=== PATIENT | male | born 1970 | race Caucasian/White ===

== ENCOUNTER 2023-05-26 09:15 | Emergency (ER) | payer SELFPAY ==
--- NOTE | ~2023-05-26 | XR_ITS ---
EXAMINATION: XR LUMBOSACRAL SPINE CLINICAL INFORMATION: Low back pain. COMPARISON: None available. TECHNIQUE: Three views of the lumbosacral spine. FINDINGS: There is normal lumbar lordosis and spinal alignment. The vertebral bodies are intact. Mild to moderate degenerative disc disease is seen at L1 to with disc space narrowing and marginal osteophyte formation. The soft tissues are unremarkable. XR/XR lumbar spine 2-3V IMPRESSION: L1-L2 mild to moderate degenerative disc disease. No acute abnormality.
[2023-05-26 09:24] VITALS: BP 150/100; PULSE 100; RESP 20; TEMP 36.8; O2SAT 98; BMI 33.9
--- NOTE | 2023-05-26 10:02 | PC.NURSE ---
pt in xray
--- NOTE | 2023-05-26 10:02 | ED.BACK ---
HPI - Back Pain/Injury General Chief Complaint: Back Pain/Injury Stated Complaint: lower back pain Time Seen by Provider: 05/26/23 09:38 Source: patient Mode of arrival: ambulatory Limitations: no limitations History of Present Illness HPI Narrative: This is a 52-year-old male who has no known medical history who presents to the ER with complaints of lower back pain x1 week with no known injury or trauma. No radiation of pain. No numbness or tingling legs. No numbness in the groin. No bowel or bladder incontinence. No fevers or chills. Patient has been taking ibuprofen at home with continued pain. Of note, patient has not seen a primary care doctor in greater than 20 years. Related Data Previous Rx's Medication Instructions Recorded cyclobenzaprine 10 mg tablet 10 mg PO TID PRN muscle spasm #14 05/26/23 tabs naproxen 500 mg tablet 500 mg PO BID PRN pain #30 tabs 05/26/23 Allergies Allergy/AdvReac Type Severity Reaction Status Date / Time No Known Allergies Allergy Verified 05/26/23 09:26 Review of Systems Review of Systems: Yes all other systems are reviewed and are negative Constitutional: Constitutional: Reports no additional constitutional complaints, Denies body ache(s), Denies chills, Denies fever(s), Denies headache(s) and Denies weakness Eyes: Eyes: Reports no additional eye complaints and Denies change in vision ENT: Reports system reviewed and no additional complaints, except as documented, Denies dizziness, Denies headache(s), Denies nasal congestion, Denies nasal discharge and Denies neck pain Cardiovascular: Cardiovascular: Reports no additional cardiovascular complaints, Denies chest pain, Denies leg edema and Denies dyspnea Respiratory: Respiratory: Reports no additional respiratory complaints, Denies cough and Denies dyspnea Gastrointestinal: Gastrointestinal: Reports no additional gastrointestinal complaints, Denies abdominal pain, Denies diarrhea, Denies nausea and Denies vomiting Genitourinary: Genitourinary: Denies urinary incontinence Musculoskeletal: Musculoskeletal: Reports no additional musculoskeletal complaints, Reports back pain, Denies arthralgias, Denies joint swelling, Denies neck pain, Denies numbness and Denies tingling Integumentary/Breasts: Skin/Breast: Reports system reviewed and no additional complaints, except as docu and Denies rash Neurologic: Reports system reviewed and no additional complaints, except as documented, Denies Abnormal speech present, Denies dizziness, Denies headache(s), Denies numbness, Denies tingling and Denies weakness PMFSH Past Medical History Attestation statement: The following information was validated with the patient. Source: old records reviewed and nursing notes reviewed Social History Social History Smoked in Last 30 Days: Yes Use of substances other than those prescribed or required for medical reasons: No Advance Directives: No Advance Directives Information Provided: Yes Physical Exam Vital Signs: Vital Signs: Last Vital Signs Temp 98.3 F 05/26/23 09:24 Pulse 100 05/26/23 09:24 Resp 20 05/26/23 09:24 BP 150/100 H 05/26/23 09:24 Pulse Ox 98 05/26/23 09:24 O2 Del Method Room Air 05/26/23 09:24 BMI result Body Mass Index 33.9 Const: General: cooperative, healthy appearing, comfortable and no acute distress Orientation/consciousness: patient oriented x3 Limitations: no limitations HEENT: Head: Yes normal to inspection Ears: hearing grossly normal bilaterally General nose exam: Normal external nose present Face and sinus: Yes normal facial exam Mouth: Normal oral and palatal mucosa present Throat: Yes posterior oropharynx normal Eyes: General: appearance normal, both eyes and all related structures Pupils: Equal, round and reactive pupils present Neck: Neck: Yes normal visual inspection Chest: Chest palpation & inspection: normal inspection of the chest Resp: Effort & Inspection: normal respiratory effort Auscultation: clear to auscultation bilaterally Cardio: Rate: regular rate Rhythm: regular rhythm Peripheral pulses: Peripheral pulses 2+ throughout GI: Inspection: Yes normal to inspection Palpation (GI): Soft to palpation and nontender Auscultation: normal bowel sounds : General: Yes no CVA tenderness Back/Spine/Pelvis: Other: There is tenderness on palpation to the lumbar mid spine with no step-offs deformities. pain is worse on flexion and extension of the lumbar spine Back: no CVA tenderness Thoracic/Lumbar Spine: thoracic and lumbar spine normal to inspection Skin: General skin exam: no rashes or lesions noted Neuro: General: patient oriented x3, moves all extremities, no focal motor deficits and normal sensation to monofilament Cranial nerves: Yes Equal, round and reactive pupils present Cognition (Neuro): normal cognition Speech: No Abnormal speech present Gait exam (Neuro): Normal gait present Motor exam (neuro): 5/5 motor strength present throughout Sensory Exam: Normal double simultaneous stimulation for sensation Deep tendon reflexes (DTR's): Right patellar reflex intensity grade: 2+ and Left patellar reflex intensity grade: 2+ Extrem: General: Yes normal to inspection Course Course Course Narrative: x-ray shows L1-L2 [id number] degenerative disc disease. No fracture. Patient will be discharged home with NSAID muscle relaxant with recommendation to establish a primary care doctor. Patient has a mild hypertension. He has no history of same. He is asymptomatic. He was notified of his blood pressure and need to establish a primary care doctor for blood pressure recheck. Reviewed worrisome signs and symptoms regards to his back pain and when to return to the emergency room. Comfortable plan for discharge home. Medications Administered Discontinued Medications Generic Name Dose Route Start Last Admin Trade Name Freq PRN Reason Stop Dose Admin Ketorolac Tromethamine 30 mg 05/26/23 09:46 05/26/23 10:13 Ketorolac Tromethamine 30 Mg/Ml Vial IM 05/26/23 09:47 30 mg ONCE ONE Administration Medical Decision Making Medical Decision Making [facility] Narrative: This is a 52-year-old male with no known medical history presents to the ER with atraumatic lower back pain for the last 1 week. Patient has midline lumbar tenderness with no step-offs deformities. Patient has no neurological deficits or red flag symptoms Due to midline tenderness will check x-rays. Patient will be provided with analgesia. Differential Diagnosis Differential Diagnoses: The differential diagnosis associated with the presentation includes Lumbar strain no neurological deficits or red flag symptoms to suggest cord compression, cauda equina, epidural abscess, malignancy no flank pain or urinary symptoms to suggest renal colic or pyelonephritis gradual onset so less likely AAA Independent Interpretation I performed an independent interpretation of an: Plain X-Ray Interpretation: I independently reviewed the x-ray and agree with radiology report Radiology Impression Discussion of test interpretation with radiology: I have reviewed the radiologist's reading. Radiologist Impression: Launch?Image [address] [id number] XRay Report Signed Patient: Sandip Forte MR#: [id number] : 1970 Acct:[id number] Age/Sex: 52 / M ADM Date: 05/26/23 Loc: HO.ED Attending Dr: Ordering Physician: Mavis Ponce NP Date of Service: 05/26/23 Procedure(s): XR lumbar spine 2-3V Accession Number(s): [id number] cc: Mavis Ponce NP~ EXAMINATION: XR LUMBOSACRAL SPINE CLINICAL INFORMATION: Low back pain. COMPARISON: None available. TECHNIQUE: Three views of the lumbosacral spine. FINDINGS: There is normal lumbar lordosis and spinal alignment. The vertebral bodies are intact. Mild to moderate degenerative disc disease is seen at L1 to with disc space narrowing and marginal osteophyte formation. The soft tissues are unremarkable. XR/XR lumbar spine 2-3V IMPRESSION: L1-L2 mild to moderate degenerative disc disease. No acute abnormality. ? Discharge Plan Discharge Clinical Impression: Lumbar strain Patient Disposition: Home, Self-Care Instructions: Low Back Strain (ED), Lower Back Exercises (ED) Additional Instructions: Your blood pressure was elevated today. You need to follow-up with a primary care doctor to have her blood pressure recheck to determine if you need blood pressure medications. Please limit sodium in the diet. Please limit caffeine. Your x-ray shows degenerative changes which come with age Apply heat or ice Gentle stretching At take the medication as prescribed Establish a primary care doctor Return for shortness of breath, chest pain, weakness /numbness / tingling of the upper/lower extremities, bowel or bladder incontinence, fevers/chills or numbness in the groin Prescriptions: New naproxen 500 mg tablet 500 mg PO BID PRN (Reason: pain) Qty: 30 0RF cyclobenzaprine 10 mg tablet 10 mg PO TID PRN (Reason: muscle spasm) Qty: 14 0RF Referrals: Physician,None [Primary Care Provider] - 1 week Stand Alone Forms: Work/School Release
[2023-05-26] MEDS: Ketorolac Tromethamine 30 MG/ML VIAL IM (10:13)
--- NOTE | 2023-05-26 11:31 | PC.NURSE ---
upon gving d/c papers pt c/o right arm numbness. on assessment by rn at this time pt states can feel fingers.
== END 2023-05-26 11:45 | disposition home or self-care (01) ==
PROVIDERS: Emergency Provider Emergency Medicine
DX: S39.012A Strain of muscle, fascia and tendon of lower back, initial encounter (principal); X58.XXXA Exposure to other specified factors, initial encounter; Y93.9 Activity, unspecified; Y92.9 Unspecified place or not applicable; Y99.9 Unspecified external cause status
CPT/HCPCS: 72100; 96372; 99284; J1885

== ENCOUNTER 2023-10-03 09:26 | Inpatient (IN) | payer MEDICAID, SELFPAY ==
--- NOTE | ~2023-10-03 | XR_ITS ---
EXAMINATION: XR CHEST CLINICAL INFORMATION: Dyspnea. COMPARISON: None available. TECHNIQUE: Frontal view of the chest was obtained. FINDINGS: The lungs are well-expanded with increased pulmonary vascularity but no consolidation seen. The heart size is enlarged. There is no pleural effusion. No gross bony abnormality. XR/XR chest 1V IMPRESSION: Cardiomegaly with mild CHF.
--- NOTE | ~2023-10-03 | US_ITS ---
EXAMINATION: US RETROPERITONEAL LIMITED (RENAL ONLY) CLINICAL INFORMATION: Renal mass reported on CT scan of chest. COMPARISON: CT scan of chest on 10/03/2023 TECHNIQUE: Real-time imaging of the kidneys. FINDINGS: RIGHT KIDNEY: 11.9 x 5.8 x 7.3 cm (SAG x AP x TRV). The kidney is normal in size, contour, and echogenicity. Renal cortical thickness is normal. No renal calculi or hydronephrosis. Hypoechoic cyst with a single thin septation is seen in mid right kidney measuring 1.9 x 1.7 x 2.5 cm in size. A smaller simple cyst is seen in inferior right renal pole measuring 1.3 x 1.1 x 1.1 cm in size. Echogenic focus without acoustic shadowing is seen in inferior right renal cortex measuring 0.7 x 0.4 x 0.7 cm in size. LEFT KIDNEY: 13.6 x 5.4 x 5.9 cm (SAG x AP x TRV). The kidney is normal in size, contour, and echogenicity. Renal cortical thickness is normal. No calculi or focal parenchymal lesions. No hydronephrosis. US/US renal BI IMPRESSION: 1. Right mid renal Bosniak category 2 lesion and inferior right renal pole Bosniak category 1 lesions are seen, for which no follow up imaging is recommended. 2. The right upper renal pole lesion reported on CT scan of chest could not be demonstrated on ultrasound examination. Further evaluation with pre and postcontrast MRI of the abdomen is therefore recommended. 3. Nonspecific Echogenic focus without acoustic shadowing is seen in the inferior right renal cortex.
--- NOTE | ~2023-10-03 | CT_ITS ---
EXAMINATION: CT CHEST WITHOUT CONTRAST CLINICAL INFORMATION: Chest pain, shortness of breath, history of spontaneous pneumothorax. COMPARISON: Chest x-ray of 10/03/2023 TECHNIQUE: Multidetector volumetric CT imaging of the chest was done. Axial MIP volume rendering provided. Sagittal and coronal reformatted images were obtained. This CT examination was performed using dose optimization techniques as appropriate, variously including the following: *Automated exposure control *Adjustment of mA and/or kV according to patient size (this includes techniques or standardized protocols for targeted exams where dose is matched to indication/reason for exam; i.e. extremities or head) *Use of iterative reconstruction technique DLP: 504 mGy-cm FINDINGS: Examination is somewhat motion degraded. LUNGS: Moderate centrilobular emphysema is evident, greater in the mid and upper lung zones and at the bases. There are scattered pulmonary nodules. For example, a 4 mm nodule is evident in the right upper lobe anteriorly, series 9 image 175; a 4 mm nodule is evident in the lateral right upper lobe, series 9 image 167; several tiny nodules are evident in the right middle lobe, series 8 image 68; in the largest nodule is in the right lower lobe measuring 6 mm, series 9 and series 327. Dependent atelectasis is noted at both lung bases. Scattered additional similar sized nodules are evident in both lungs, right greater than left, best seen on the maximum intensity projection images. The trachea and major bronchi are patent. MEDIASTINUM: Mild adenopathy is present. For example, a right upper paratracheal node measures 10 mm in short axis; a left tracheobronchial node measures 15 x 10 mm; a subcarinal node measures 21 x 13 mm and extends into the azygos esophageal recess. CORONARY ARTERY CALCIFICATION: None visualized on this study. PLEURA: Small right greater than left pleural effusions are present. AXILLA: No lymphadenopathy. UPPER ABDOMEN: There is an incompletely imaged 19 mm mass extending exophytically from the upper pole of the right kidney. A tiny low-density lesion extends medially from the upper pole the left kidney. There are no adrenal masses. OSSEOUS STRUCTURES: Unremarkable. CT/CT chest wo IV con IMPRESSION: 1. Mild to moderate emphysema. 2. Scattered small bilateral pulmonary nodules, the largest in the right lower lobe measuring 6 mm. Per Fleischner Society guidelines, in the absence of underlying malignancy, in a patient at high risk, for nodules of this size, follow-up CT at 3-6 months is recommended, then at 18-24 months. 3. Small bilateral pleural effusions and bibasilar atelectasis. 4. No pneumothorax. 5. Mild nonspecific mediastinal adenopathy. Attention on follow-up studies is recommended. 6. Limited upper abdominal images show an exophytic right renal mass, measuring at least 19 mm, incompletely imaged and characterized. Suggest dedicated renal CT or MRI as clinically warranted. Fleischner guidelines were followed.
[2023-10-03 09:44] VITALS: BP 173/119; PULSE 113; RESP 20; TEMP 36.1; O2SAT 89; BMI 40.9
--- NOTE | 2023-10-03 09:51 | ECG_ITS ---
Test Reason : sob Blood Pressure : / mmHG Vent. Rate : 111 BPM Atrial Rate : 111 BPM P-R Int : 168 ms QRS Dur : 092 ms QT Int : 346 ms P-R-T Axes : 061 008 095 degrees QTc Int : 470 ms Sinus tachycardia Possible Left atrial enlargement Nonspecific T wave abnormality Abnormal ECG No previous ECGs available Referred By: Generic ED Physician Electronically Signed By:Julio Hoffman
[2023-10-03 10:29] LABS: MANUAL DIFF FLAG NO
[2023-10-03 10:33] LABS: Basophils Absolute Auto 0.1 X10*3/uL (0.0-0.2); Basophils Percent Auto 0.3 % (0-2); Eosinophils Percent Auto 0.2 % (0-4); Hematocrit 44.3 % (42.0-52.0); Hemoglobin 14.1 g/dl (14.0-18.0); Imm Gran Abs Auto 0.04 X10*3/uL (0.00-0.03); Imm Gran Pct Auto 0.3 % (0.0-0.4); Lymphocytes Absolute Auto 0.9 X10*3/uL (1.2-4.9); Lymphocytes Percent Auto 6.3 % (20-40); Mean Corpuscular HGB Conc 31.8 g/dl (31.0-36.0); Mean Corpuscular Hemoglobin 29.3 pg (27.0-33.0); Mean Corpuscular Volume 92.1 fL (80.0-98.0); Mean Platelet Volume 9.4 fL (9.4-12.4); Monocytes Absolute Auto 0.8 X10*3/uL (0.1-1.2); Monocytes Percent Auto 5.2 % (2-11); Neutrophils Absolute Auto 12.7 x10*3/uL (2.0-8.3); Neutrophils Percent Auto 87.7 % (45-73); Platelet Count 327 X10*3/uL (160-400); Red Blood Count 4.81 X10*6/uL (4.60-5.80); Red Cell Distribution Width 13.4 % (11.0-16.0); White Blood Count 14.5 X10*3/uL (4.8-10.8)
--- NOTE | 2023-10-03 10:35 | PC.NURSE ---
state he started with sob a few hours ago. b/l ls dim with exp wheeze on r, sr on monitor, no cp,
[2023-10-03 10:45] LABS: Alanine Aminotransferase 19 U/L (0-40); Albumin Level 4.3 g/dL (3.5-5.0); Alkaline Phosphatase 81 U/L (39-117); Anion Gap 13 (12-20); Aspartate Amino Transferase 19 U/L (5-37); Bilirubin Direct 0.2 mg/dL (0.0-0.5); Bilirubin Total 0.6 mg/dL (0.0-1.0); Blood Urea Nitrogen 10 mg/dL (9-16); Carbon Dioxide 26 mmol/L (22-29); Chloride 102 mmol/L (96-108); Creatinine Clr Calc Pharmacy 148.4; Estimated Glomerular Filt Rate > 60; Glucose Random 129 mg/dL (60-115); Lipase 12 U/L (8-78); Potassium 4.2 mmol/L (3.3-5.1); Sodium 137 mmol/L (135-145)
[2023-10-03 10:52] LABS: Troponin-I High Sensitivity 60.8 ng/L (<3.5-35.0)
[2023-10-03 11:06] LABS: Influenza A PCR NEGATIVE (Negative); Influenza B PCR NEGATIVE (Negative); Resp Syncy Virus RNA Qual PCR NEGATIVE (Negative); SARS COV2 PCR INHOUSE NEGATIVE (Negative)
[2023-10-03 11:10] VITALS: BP 164/112; PULSE 109; RESP 22; O2SAT 94
--- NOTE | 2023-10-03 11:15 | ED.SOB ---
HPI - SOB/Dyspnea General Chief Complaint: Dyspnea Stated Complaint: Shortness of breath Time Seen by Provider: 10/03/23 11:14 Source: patient and RN notes reviewed Mode of arrival: ambulatory Limitations: no limitations History of Present Illness HPI Narrative: This is a 52-year-old male, with a history of hypertension, and spontaneous pneumothorax 10 years ago, presenting to the emergency department with complaints of acute onset shortness of breath which occurred at 3:00 a.m. this morning. Patient reports that last night he used half a gram of cocaine at midnight. He went to bed and woke up feeling very short of breath. Reports over the course of this last month he has had increased shortness of breath, worsening with climbing stairs and lying down. No swelling in his lower extremities. Denies history of congestive heart failure. No fevers, chills, palpitations, chest pain, abdominal pain, nausea, vomiting or diarrhea. He states that he has recently exposed to COVID last week. He is not on on supplemental oxygen. He is a smoker, smokes approximately 5-10 cigarettes per day. No recent travel, surgeries, hospitalizations. No history of blood clots or cancer history. No other complaints or concerns at this time. MD elicited complaint: shortness of breath Onset (ago): hour(s) Timing: constant Severity: moderate Exacerbating factors: lying flat and exertion Relieving factors: oxygen and upright position Associated symptoms: denies other symptoms Treatment prior to arrival: none Related Data Home oxygen amount: none Previous Rx's Medication Instructions Recorded acetaminophen 325 mg tablet 650 mg (2 x 325 mg) PO Q6H PRN 10/06/23 Pain, Mild (Pain Scale 1-3) #10 tabs aspirin 81 mg tablet,delayed 81 mg PO DAILY #90 tabs 10/06/23 release carvedilol 3.125 mg tablet 3.125 mg PO BID #240 tabs 10/06/23 fluticasone propionate 50 1 spray intranasal DAILY #1 g 10/06/23 mcg/actuation nasal spray,suspension furosemide 40 mg tablet 40 mg PO DAILY #90 tabs 10/06/23 losartan 25 mg tablet 25 mg PO DAILY #90 tabs 10/06/23 spironolactone 25 mg tablet 25 mg PO DAILY #90 tabs 10/06/23 Allergies Allergy/AdvReac Type Severity Reaction Status Date / Time No Known Allergies Allergy Verified 05/26/23 09:26 Review of Systems Review of Systems: Yes all other systems are reviewed and are negative Constitutional: Constitutional: Reports as per [facility] Past Medical History Medical History Cigarette smoker Cocaine abuse Spontaneous pneumothorax Hypertension Social History Social History Household Members: Family Housing: House Do you presently have visiting nurse or other home services: No Patient Tobacco Use Status: Current everyday Tobacco user Tobacco use type: Cigarette Cigarette Packs Per Day: 0.5 Cigarettes Per Day: 10 Years Smoked: 35 Second Hand Smoke Exposure: No Substance Use Type: Crack/Cocaine and Marijuana service: No Physical Exam Vital Signs: Vital Signs: Last Vital Signs Temp 97.0 F 10/06/23 15:52 Pulse 85 10/06/23 15:52 Resp 20 10/06/23 15:52 BP 125/78 10/06/23 15:52 Pulse Ox 93 10/06/23 15:52 O2 Del Method Room Air 10/06/23 15:52 O2 Flow Rate 2.5 10/06/23 11:11 BMI result Body Mass Index 40.9 Const: Other: Diaphoretic General: cooperative, comfortable and no acute distress Orientation/consciousness: patient oriented x3 Limitations: no limitations HEENT: Head: Yes normal to inspection, Yes normocephalic and Yes atraumatic Ears: hearing grossly normal bilaterally General nose exam: Normal external nose present Face and sinus: Yes normal facial exam Mouth: Normal oral and palatal mucosa present, oropharynx normal and moist mucous membranes Throat: Yes posterior oropharynx normal Eyes: General: appearance normal, both eyes and all related structures Eyelids: Yes eyelids normal Conjunctivae: conjunctivae normal Sclerae: sclerae normal Pupils: Equal, round and reactive pupils present EOM: EOMs intact bilaterally Neck: Neck: Yes normal visual inspection, Yes full ROM and Yes no lymphadenopathy Lymphatic: no lymphadenopathy noted Chest: Chest palpation & inspection: normal inspection of the chest Resp: Other: Diminished lung sounds throughout all lung martin. Speaking in 2 2-3 word sentences. Effort & Inspection: abnormal respiratory effort Cardio: Rate: regular rate Rhythm: regular rhythm Heart sounds: S1 normal heart sound present and S2 normal heart sound present GI: Inspection: Yes normal to inspection Skin: General skin exam: no rashes or lesions noted Trauma: no lacerations or abrasions Wounds: no wounds Neuro: General: patient oriented x3 and moves all extremities Cranial nerves: Yes Equal, round and reactive pupils present Extrem: Other: No lower extremity swelling General: Yes normal to inspection Right upper extremity: normal to inspection Left upper extremity: normal to inspection Right lower extremity: normal to inspection Left lower extremity: normal to inspection Course Reevaluation(s) Reevaluation #1: Second troponin returns, flat. Elevated troponin likely due to demand. BP elevated at 1067. Patient's symptoms likely due to a CHF exacerbation. He has been resting comfortably, currently on 3 L nasal cannula. Patient needs to be admitted for CHF exacerbation and hypoxia. Spoke to hospitalist, Dr. Espinal, recommend Cardiology consult given ST changes and elevated troponin. I spoke to certified medical records coder, Dr. Hoffman, who reviewed the EKG, given blood pressure thigh and he has done cocaine, recommending Lasix, which was already given as well as nitroglycerin paste. We will put an echo during his hospital admission and to avoid beta-blockers and for CHF. No heparin is needed at this time. Transfer of care initiated. Time: 14:27 Medications Administered Discontinued Medications Generic Name Dose Route Start Last Admin Trade Name Kenyq PRN Reason Stop Dose Admin Albuterol/Ipratropium 3 ml 10/04/23 12:00 10/06/23 14:36 Albuterol/Iprat 2.5/0.5mg 3 Ml Ampul.Neb INHALE Not Given RQ4H WHILE AWAKE [facility] Aspirin 324 mg 10/03/23 11:32 10/03/23 12:00 Aspirin 81 Mg Tab.Chew PO 10/03/23 11:33 324 mg ONCE ONE Administration Aspirin 81 mg 10/04/23 09:00 10/06/23 08:11 Aspirin Enteric Coated 81 Mg Tablet. PO 81 mg DAILY [facility] Administration Carvedilol 3.125 mg 10/05/23 11:15 10/06/23 08:11 Carvedilol 3.125 Mg Tablet PO 3.125 mg BID [facility] Administration Protocol Empagliflozin 10 mg 10/04/23 11:00 10/06/23 08:11 Empagliflozin 10 Mg Tablet PO 10 mg DAILY [facility] Administration Fluticasone Propionate 1 spray 10/03/23 19:45 10/06/23 08:13 Fluticasone Propionate Nasal 16 Gm [place] NOSTRIL-B 1 spray DAILY JHONNY Administration Furosemide 40 mg 10/03/23 11:32 10/03/23 12:04 Furosemide 40 Mg/4 Ml Vial IVPUSH 10/03/23 11:33 40 mg ONCE ONE Administration Protocol Furosemide 40 mg 10/04/23 09:00 10/06/23 08:11 Furosemide 40 Mg/4 Ml Vial IVPUSH 40 mg DAILY JHONNY Administration Protocol Heparin Sodium (Porcine) 5,000 unit 10/03/23 16:00 10/06/23 04:04 Heparin Sodium,Porcine 5,000 Unit/Ml Vial SUBCUT 5,000 unit Q12H JHONNY Administration Ceftriaxone Sodium 1 gm/ 50 mls @ 100 mls/hr 10/03/23 11:32 10/03/23 13:12 Sodium Chloride IV 10/03/23 12:01 Infused ONCE ONE Infusion Azithromycin 500 mg/ Sodium 250 mls @ 125 mls/hr 10/03/23 11:32 10/03/23 15:38 Chloride IV 10/03/23 13:31 Infused ONCE ONE Infusion Lisinopril 5 mg 10/04/23 09:00 10/04/23 08:36 Lisinopril 5 Mg Tablet PO 5 mg DAILY JHONNY Administration Protocol Lorazepam 1 mg 10/03/23 11:32 10/03/23 12:01 Lorazepam 2 Mg/Ml Vial IVPUSH 10/03/23 11:33 1 mg ONCE ONE Administration Losartan Potassium 25 mg 10/04/23 11:00 10/06/23 08:11 Losartan Potassium 25 Mg Tablet PO 25 mg DAILY JHONNY Administration Protocol Nicotine 14 mg 10/03/23 15:45 10/06/23 08:11 Nicotine 14 Mg Patch.[id number] TRANSDERMA 14 mg DAILY JHONNY Administration Nitroglycerin 1 inch 10/03/23 15:11 10/03/23 15:33 Nitroglycerin 2 % Oint 1 Gm Packet TRANSDERMA 10/03/23 15:12 1 inch ONCE ONE Administration Sodium Chloride 3 ml 10/03/23 16:00 10/06/23 08:14 0.9 % Sodium Chloride Flush 3 Ml Syringe IVFLUSH 3 ml QSHIFT JHONNY Administration Sodium Chloride 1 spray 10/03/23 19:40 10/04/23 06:07 Sodium Chloride 0.65 % Nasal 44 Ml Sprbtl NOSTRIL-B 1 spray Q1H PRN Administration Nasal Congestion Spironolactone 25 mg 10/04/23 11:15 10/06/23 08:11 Spironolactone 25 Mg Tablet PO 25 mg DAILY JHONNY Administration Protocol Medical Decision Making Medical Decision Making [facility] Narrative: This is a 52-year-old male, with a history of hypertension and spontaneous pneumothorax 10 years ago, presenting to the emergency department with complaints of acute onset shortness of breath which occurred at 3:00 a.m. this morning. I assessed patient at 11:30 a.m., patient diaphoretic, speaking in 2-3 word sentences. He was found upon arrival with an oxygen saturation of 89%, tachycardic in the 113, blood pressure 173/119. Patient now currently on 3 L nasal cannula, oxygen saturation 94%, still speaking in 2-3 word sentences. Tachycardic 1009. He has no chest pain. EKG was performed, revealing ST depression in V5 and V6. No previous EKG for comparison. Labs were performed prior to my assessment, which revealed a white blood cell count of 14.5, with a mild left shift, troponin 60.8, will repeat in 3 hours. Viral swabs. Chest x-ray shows cardiomegaly with evidence of CHF. I reviewed this case with my attending physician Dr. Rubi, who recommends treating tachycardia with Ativan 1 mg IV, as well as treating underlying CHF with Lasix 40 mg IV, aspirin 324, into obtain blood cultures, lactic, and administer ceftriaxone 1 g IV and Zithromax IV. Patient has CHF, IV fluids contraindicated. Differential Diagnosis Differential Diagnoses: The differential diagnosis associated with the presentation includes CHF, NSTEMI, ACS, pneumonia Admission/Observation Consideration of admission/observation: Escalation of care including admission/observation considered Escalation of care including admission observation with concern given workup today Consult Healthcare Provider Management of the patient was discussed with: Hospitalist and Farm Supervisor Dr. Espinal, Dr. Hoffman Lab Data [facility] Lab Attestation statement: I reviewed the patient's lab results. See [facility] 10/04/23 06:44 10/05/23 06:02 Labs: Lab Results 10/03/23 10/03/23 10/03/23 Range/Units 10:24 10:25 11:46 WBC 14.5 H (4.8-10.8) X10*3/uL RBC 4.81 (4.60-5.80) X10*6/uL Hgb 14.1 (14.0-18.0) g/dl Hct 44.3 (42.0-52.0) % MCV 92.1 (80.0-98.0) fL MCH 29.3 (27.0-33.0) pg MCHC 31.8 (31.0-36.0) g/dl RDW 13.4 (11.0-16.0) % Plt Count 327 (160-400) X10*3/uL MPV 9.4 (9.4-12.4) fL Immature Gran % (Auto) 0.3 (0.0-0.4) % Neut % (Auto) 87.7 H (45-73) % Lymph % (Auto) 6.3 L (20-40) % Sunflower % (Auto) 5.2 (2-11) % Eos % (Auto) 0.2 (0-4) % Baso % (Auto) 0.3 (0-2) % Lymph # (Auto) 0.9 L (1.2-4.9) X10*3/uL [place] # (Auto) 0.8 (0.1-1.2) X10*3/uL Eos # (Auto) 0.0 (0.0-0.4) X10*3/uL Baso # (Auto) 0.1 (0.0-0.2) X10*3/uL Abs Immat Gran (auto) 0.04 H (0.00-0.03) X10*3/uL Absolute Neuts (auto) 12.7 H (2.0-8.3) x10*3/uL Absolute Nucleated RBC 0.000 (0.0-0.012) X10*3/uL Nucleated RBC % (auto) 0.0 (0.0-0.2) /100WBC Sodium 137 (135-145) mmol/L Potassium 4.2 (3.3-5.1) mmol/L Chloride 102 (96-108) mmol/L Carbon Dioxide 26 (22-29) mmol/L Anion Gap 13 (12-20) BUN 10 (9-16) mg/dL Creatinine 0.92 (0.5-1.4) mg/dL Estim Creat Clear Calc 148.4 Estimated GFR > 60 Random Glucose 129 H (60-115) mg/dL Lactic Acid 1.3 (0.5-2.0) mmol/L Calcium 9.0 (8.4-10.2) mg/dL Total Bilirubin 0.6 (0.0-1.0) mg/dL Direct Bilirubin 0.2 (0.0-0.5) mg/dL AST 19 (5-37) U/L ALT 19 (0-40) U/L Alkaline Phosphatase 81 (39-117) U/L Troponin I High Sens 60.8 H (<3.5-35.0) ng/L B-Natriuretic Peptide 1067 H (<100) pg/mL Total Protein 8.0 (6.5-8.0) g/dL Albumin 4.3 (3.5-5.0) g/dL Lipase 12 (8-78) U/L Urine Opiates Screen (Not Detect) Urine Fentanyl Screen (Not Detect) Ur Barbiturates Screen (Not Detect) Ur Phencyclidine Scrn (Not Detect) Ur Amphetamines Screen (Not Detect) U Benzodiazepines Scrn (Not Detect) Urine Cocaine Screen (Not Detect) U Marijuana (THC) Screen (Not Detect) Influenza Type A (PCR) NEGATIVE (Negative) Influenza Type B (PCR) NEGATIVE (Negative) RSV RNA Qual (PCR) NEGATIVE (Negative) SARS-CoV-2 RNA (RT-PCR) NEGATIVE (Negative) 10/03/23 10/03/23 Range/Units 11:47 13:45 WBC (4.8-10.8) X10*3/uL RBC (4.60-5.80) X10*6/uL Hgb (14.0-18.0) g/dl Hct (42.0-52.0) % MCV (80.0-98.0) fL MCH (27.0-33.0) pg MCHC (31.0-36.0) g/dl RDW (11.0-16.0) % Plt Count (160-400) X10*3/uL MPV (9.4-12.4) fL Immature Gran % (Auto) (0.0-0.4) % Neut % (Auto) (45-73) % Lymph % (Auto) (20-40) % [place] % (Auto) (2-11) % Eos % (Auto) (0-4) % Baso % (Auto) (0-2) % Lymph # (Auto) (1.2-4.9) X10*3/uL [place] # (Auto) (0.1-1.2) X10*3/uL Eos # (Auto) (0.0-0.4) X10*3/uL Baso # (Auto) (0.0-0.2) X10*3/uL Abs Immat Gran (auto) (0.00-0.03) X10*3/uL Absolute Neuts (auto) (2.0-8.3) x10*3/uL Absolute Nucleated RBC (0.0-0.012) X10*3/uL Nucleated RBC % (auto) (0.0-0.2) /100WBC Sodium (135-145) mmol/L Potassium (3.3-5.1) mmol/L Chloride (96-108) mmol/L Carbon Dioxide (22-29) mmol/L Anion Gap (12-20) BUN (9-16) mg/dL Creatinine (0.5-1.4) mg/dL Estim Creat Clear Calc Estimated GFR Random Glucose (60-115) mg/dL Lactic Acid (0.5-2.0) mmol/L Calcium (8.4-10.2) mg/dL Total Bilirubin (0.0-1.0) mg/dL Direct Bilirubin (0.0-0.5) mg/dL AST (5-37) U/L ALT (0-40) U/L Alkaline Phosphatase (39-117) U/L Troponin I High Sens 63.7 H (<3.5-35.0) ng/L B-Natriuretic Peptide (<100) pg/mL Total Protein (6.5-8.0) g/dL Albumin (3.5-5.0) g/dL Lipase (8-78) U/L Urine Opiates Screen Not Detected (Not Detect) Urine Fentanyl Screen Not Detected (Not Detect) Ur Barbiturates Screen Not Detected (Not Detect) Ur Phencyclidine Scrn Not Detected (Not Detect) Ur Amphetamines Screen Not Detected (Not Detect) U Benzodiazepines Scrn Not Detected (Not Detect) Urine Cocaine Screen POSITIVE H (Not Detect) U Marijuana (THC) Screen Not Detected (Not Detect) Influenza Type A (PCR) (Negative) Influenza Type B (PCR) (Negative) RSV RNA Qual (PCR) (Negative) SARS-CoV-2 RNA (RT-PCR) (Negative) Independent Interpretation I performed an independent interpretation of an: EKG Interpretation: Sinus tachycardia at a ventricular rate 111bpm, NC interval 168, QTC 470, ST depression seen in V5 and V6; EKG reviewed with attending Dr. Rubi Radiology Impression Discussion of test interpretation with radiology: I have reviewed the radiologist's reading. Radiologist Impression: EXAMINATION: XR CHEST CLINICAL INFORMATION: Dyspnea. COMPARISON: None available. TECHNIQUE: Frontal view of the chest was obtained. FINDINGS: The lungs are well-expanded with increased pulmonary vascularity but no consolidation seen. The heart size is enlarged. There is no pleural effusion. No gross bony abnormality. XR/XR chest 1V IMPRESSION: Cardiomegaly with mild CHF. Critical Care Time Critical Care Time Critical Care Time: Yes Total Critical Care Time: 40 Attestation: I have personally provided critical care time exclusive of time spent on separately billable procedures. Time includes review of lab data, radiology results, discussion with consultants, and monitoring for potential decompensation. Intervention performed as documented. Discharge Plan Discharge Clinical Impression: Congestive heart failure, Hypoxia Patient Disposition: Admitted As Inpatient Interventions: Admission Worksheet (ED) Last Done: 10/03/23 17:07 Discharge Date/Time: 10/03/23 18:45
--- NOTE | 2023-10-03 11:20 | PC.NURSE ---
Patient on 3L O2 to bring saturation about 90%. (93%) Denies pain, main complaint is SOB since early this morning. NSR on tele. pt slightly diaphoretic. Initial labs and EKG done.
[2023-10-03] MEDS: Aspirin 81 MG TAB.CHEW 324 MG PO (12:00)
[2023-10-03] MEDS: LORazepam 2 MG/ML VIAL 1 MG IVPUSH (12:01)
[2023-10-03 12:02] LABS: Amphetamine Screen Urine Not Detected (Not Detect); Barbiturates, Urine Not Detected (Not Detect); Benzodiazepines Screen Urine Not Detected (Not Detect); Cannabinoid Screen Urine Not Detected (Not Detect); Cocaine Screen Urine POSITIVE (Not Detect); Fentanyl, urine Not Detected (Not Detect); Opiate Screen Urine Not Detected (Not Detect); Phencyclidine Screen Urine Not Detected (Not Detect)
[2023-10-03] MEDS: Furosemide 40 MG/4 ML VIAL IVPUSH (12:04)
[2023-10-03 12:06] LABS: Lactic Acid 1.3 mmol/L (0.5-2.0)
[2023-10-03] MEDS: cefTRIAXone sodium 1 GM in 0.9 % Sodium Chloride 50 ML IV (12:06)
--- NOTE | 2023-10-03 12:13 | PC.NURSE ---
additional labs drawn and sent medicated per dec. pt resting comfortably. call padilla within reach
[2023-10-03 12:14] LABS: B Type Natriuretic Peptide 1067 pg/mL (<100)
[2023-10-03] MEDS: Azithromycin 500 MG in 0.9 % Sodium Chloride 250 ML 125 MG IV (13:27)
[2023-10-03 13:29] VITALS: BP 140/103; PULSE 100; RESP 22; TEMP 36.5
--- NOTE | 2023-10-03 13:31 | PC.NURSE ---
second antibiotic infusing urine output 1600 ml since lasix dose given. 94% on 3L o2. no reports of pain.. expiratory wheezing noted
[2023-10-03 14:14] LABS: Troponin-I High Sensitivity 63.7 ng/L (<3.5-35.0)
[2023-10-03] MEDS: Nitroglycerin 2 % Oint 1 GM Packet 1 INCH TRANSDERMA (15:33)
--- NOTE | 2023-10-03 15:34 | PM.IMHP ---
History of Present Illness Date of Service: 10/03/23 Attending physician on admission: Jeny Espinal Chief Complaint: sob 52-year-old male with history of hypertension, spontaneous pneumothorax 10 years ago, who is a current 5-10 cigarettes per day smoker (previously 2ppd) presented to the ED earlier today for evaluation of sudden-onset shortness of breath that started around 330 this morning. He reports he was sleeping and woke up abruptly short of breath and difficulty catching his breath which worsens with exertion. He states he has also had dry cough and nasal congestion ongoing for about 1 month. He is reporting orthopnea that has been ongoing for 1 month, but states he only uses 1 pillow at night. Denies any fevers, chills, sore throat, abdominal pain, nausea, vomiting, diarrhea, lightheadedness, headache, chest pain. Denies any known sick contacts, recent travel. He reports occasional alcohol use. Reports using 0.5-1 g of cocaine about once monthly, last use was last night. He does report diet heavy with processed foods including daily meets. Denies any recent weight gain or lower extremity edema. On arrival, pt tachycardic to 113, hypoxic to 89%, placed on 3L supplemental O2 maintaining oximetry 94%. He is hypertensive to 130/106 on admission. There is a leukocytosis of 14.5. Renal function and electrolyte levels normal. Glucose 129. Lactic acid 1.3. Initial troponin 60.8, repeat 63.7. BNP 1067. Urine tox screen positive for cocaine. Negative for influenza, COVID-19, RSV. Chest x-ray shows cardiomegaly with mild CHF. EKG shows sinus tachycardia, rate 111 with nonspecific T-wave abnormality. In the ED, given 324 mg ASA, 40 mg IV Lasix, 1 mg lorazepam, 1 in nitroglycerin. He was initially also thought to possibly have a pneumonia was empirically given 1 g IV ceftriaxone and Zithromax. Review of Systems Review of Systems: General: No fevers, malaise, unintentional weight loss HEENT: No blurred vision, diplopia. No sore throat, nasal congestion, rhinorrhea, sinus pain, ear pain Cardiovascular: No chest pain, palpitations, or leg edema Respiratory: +sob, +cough. No wheezing GI: No abdominal pain, nausea, vomiting, diarrhea, constipation, melena, hematochezia : No dysuria, hematuria, increased urinary frequency, decreased urinary output MSK: No myalgia, back pain Neuro: No headaches, weakness, paresthesias Skin: No rashes or lesions [facility] Medical History Cigarette smoker Cocaine abuse Spontaneous pneumothorax Hypertension Social History Patient Tobacco Use Status: Current everyday Tobacco user Cigarette Packs Per Day: 0.5 Substance Use Type: Crack/Cocaine Meds Allergies Allergy/AdvReac Type Severity Reaction Status Date / Time No Known Allergies Allergy Verified 05/26/23 09:26 Home Medications Medication Instructions Recorded Confirmed Last Taken Type ibuprofen 200 mg tablet 400 mg PO Q6H PRN Pain 10/03/23 10/03/23 Unknown History Physical Exam Vital Signs and Narrative: Vital Signs: Last Vital Signs Temp 97.7 F 10/03/23 13:29 Pulse 100 10/03/23 13:29 Resp 22 H 10/03/23 13:29 BP 140/103 H 10/03/23 13:29 Pulse Ox 94 10/03/23 11:10 O2 Del Method Nasal Cannula 10/03/23 11:10 O2 Flow Rate 3 10/03/23 11:10 BMI result Body Mass Index 40.9 Results Labs 10/03/23 10:24 10/03/23 10:25 Labs: Laboratory Results - last 24 hr 10/03/23 10/03/23 10/03/23 10:24 10:25 11:46 MCV 92.1 MCH 29.3 MCHC 31.8 RDW 13.4 Plt Count 327 MPV 9.4 Immature Gran % (Auto) 0.3 Neut % (Auto) 87.7 H Lymph % (Auto) 6.3 L [place] % (Auto) 5.2 Eos % (Auto) 0.2 Baso % (Auto) 0.3 Lymph # (Auto) 0.9 L [place] # (Auto) 0.8 Eos # (Auto) 0.0 Baso # (Auto) 0.1 Abs Immat Gran (auto) 0.04 H Absolute Neuts (auto) 12.7 H Absolute Nucleated RBC 0.000 Nucleated RBC % (auto) 0.0 Anion Gap 13 Estim Creat Clear Calc 148.4 Estimated GFR > 60 Random Glucose 129 H Lactic Acid 1.3 Calcium 9.0 Total Bilirubin 0.6 Direct Bilirubin 0.2 AST 19 ALT 19 Alkaline Phosphatase 81 B-Natriuretic Peptide 1067 H Total Protein 8.0 Albumin 4.3 Lipase 12 Urine Opiates Screen Urine Fentanyl Screen Ur Barbiturates Screen Ur Phencyclidine Scrn Ur Amphetamines Screen U Benzodiazepines Scrn Urine Cocaine Screen U Marijuana (THC) Screen Influenza Type A (PCR) NEGATIVE Influenza Type B (PCR) NEGATIVE RSV RNA Qual (PCR) NEGATIVE SARS-CoV-2 RNA (RT-PCR) NEGATIVE 10/03/23 11:47 MCV MCH MCHC RDW Plt Count MPV Immature Gran % (Auto) Neut % (Auto) Lymph % (Auto) [place] % (Auto) Eos % (Auto) Baso % (Auto) Lymph # (Auto) [place] # (Auto) Eos # (Auto) Baso # (Auto) Abs Immat Gran (auto) Absolute Neuts (auto) Absolute Nucleated RBC Nucleated RBC % (auto) Anion Gap Estim Creat Clear Calc Estimated GFR Random Glucose Lactic Acid Calcium Total Bilirubin Direct Bilirubin AST ALT Alkaline Phosphatase B-Natriuretic Peptide Total Protein Albumin Lipase Urine Opiates Screen Not Detected Urine Fentanyl Screen Not Detected Ur Barbiturates Screen Not Detected Ur Phencyclidine Scrn Not Detected Ur Amphetamines Screen Not Detected U Benzodiazepines Scrn Not Detected Urine Cocaine Screen POSITIVE H U Marijuana (THC) Screen Not Detected Influenza Type A (PCR) Influenza Type B (PCR) RSV RNA Qual (PCR) SARS-CoV-2 RNA (RT-PCR) Imaging Radiologist's Impressions: Impressions Chest X-Ray 10/03/23 10:10 IMPRESSION: Cardiomegaly with mild CHF. Assessment and Plan (1) Congestive heart failure: Status: Acute (2) Hypoxia: Status: Acute (3) Elevated troponin: Status: Acute (4) Cocaine abuse: Status: Acute Plan 52-year-old male with history of hypertension, spontaneous pneumothorax 10 years ago, who is a current 5-10 cigarettes per day smoker (previously 2ppd) admitted for congestive heart failure exacerbation with acute hypoxemic respiratory failure secondary to cocaine abuse. # acute hypoxemic respiratory failure secondary to CHF -continue 2L supplemental O2 to maintain oximetry >90% #Acute CHF exacerbation -2/2 cocaine use -CXR shows mild pulmonary vascular congestion, BNP >1000 -IV lasix 40mg daily -strict I&O -daily weights -cardiac diet -echocardiogram ordered -cardiology consult -follow renal function, electrolytes, BNP # elevated troponins- likely demand ischemia 2/2 CHF and cocaine abuse -trops flat- 60.8 --> 63.7 -no chest pain, EKG without MARY -no bb due to cocaine use, asa 324mg now continue 81mg daily -echo -cardiology consult #Hypertension -not on any home antihypertensives -given 1inch nitro in ed -monitor bp, consider starting antihypertensive am #Cocaine abuse -declines addiction medicine consult -counseled on cessation #Cigarette smoking -patch for NRT -counseled on cessation #h/o spontaneous pneumonthorax -given smoking history and presentation, will assess for possible etiology or recurrence with chest ct DVT prophylaxis- heparin Full code Due to patients congestive heart failure and demand ischemia resulting in acute hypoxemia secondary to cocaine abuse, patient will require supplemental O2, nitrate therapy, IV diuresis. He will require close cardiac monitoring as well as further evaluation with echocardiogram and expert consultation to monitor for and prevent further cardiac decompensation. Quality Stroke Does the patient have a stroke diagnosis?: No VTE Prior VTE?: No VTE Risk Level:: Medical - moderate - high VTE Device Contraindication: Treatment Not Indicated VTE Drug Contraindication: N/A - Med Ordered
[2023-10-03 15:37] VITALS: BP 130/106; PULSE 96; RESP 18; O2SAT 94
[2023-10-03] MEDS: Nicotine 14 MG PATCH.TD24 TRANSDERMA (15:56)
[2023-10-03] MEDS: 0.9 % Sodium Chloride Flush 3 ML SYRINGE IVFLUSH (15:57)
[2023-10-03] MEDS: Heparin Sodium,Porcine 5,000 UNIT/ML VIAL 5000 UNIT SUBCUT (15:57)
--- NOTE | 2023-10-03 15:58 | PHA.MEDREC ---
Pharmacy Consult ? Medication Reconciliation Pharmacy has completed the medication reconciliation. Patient reports he only takes the occasional ibuprofen. Lizbet Ryder, IngridD
--- NOTE | 2023-10-03 17:26 | PC.NURSE ---
report given to floor. transport pending
[2023-10-03 18:58] VITALS: BP 140/84; PULSE 95; RESP 20; TEMP 36; O2SAT 94
[2023-10-03] MEDS: Fluticasone Propionate Nasal 16 GM SPRAY 1 SPRAY NOSTRIL-B (21:32)
[2023-10-03 23:56] VITALS: BP 146/91; PULSE 93; RESP 20; TEMP 36.4; O2SAT 91
[2023-10-04] MEDS: 0.9 % Sodium Chloride Flush 3 ML SYRINGE IVFLUSH ×4 (00:21→20:16)
[2023-10-04] MEDS: Sodium Chloride 0.65 % Nasal 44 ML SPRBTL 1 SPRAY NOSTRIL-B ×2 (02:46→06:07)
[2023-10-04 03:33] VITALS: BP 138/93; PULSE 91; RESP 20; TEMP 36.2; O2SAT 94
[2023-10-04] MEDS: Heparin Sodium,Porcine 5,000 UNIT/ML VIAL 5000 UNIT SUBCUT ×2 (03:47→16:36)
[2023-10-04 06:00] VITALS: BMI 39.1
--- NOTE | 2023-10-04 07:00 | CA_ITS ---
Transthoracic Echocardiogram Patient (Last, First, Middle): Sandip Forte J Gender: Male Date of : 1970 Age: 52 Procedure Date: 10/04/2023 Procedure Type: Transthoracic Echocardiogram Location: [facility] [place] Height: 185.42 cm Weight: 129.28 kg BSA: 2.50 m2 Heart Rate: bpm BP: 144 / 103 mmHg [place] [employer] Machine Setter: Referring MD: Blanca GREEN Symptoms: chf, elevated trops Study Quality: Fair ECG Rhythm: Sinus Conclusions: - Severely increased left ventricular cavity size. There is severely increased left ventricular wall thickness. The left ventricular systolic function is severely decreased. The visually estimated ejection fraction is between 20-25%. - Normal right ventricular cavity size and systolic function. - Moderately elevated right atrial pressure. - There is mild dilatation of the ascending aorta measuring 3.50 cm. Findings Procedure Information Contrast agent, definity, is being given per protocol without apparent complications. Left Ventricle Severely increased left ventricular cavity size. There is severely increased left ventricular wall thickness. The left ventricular systolic function is severely decreased. The visually estimated ejection fraction is between 20 25%. There is severe global hypokinesis. Abnormal diastolic function is noted. Elevated filling pressures. Right Ventricle Normal right ventricular cavity size and systolic function. Atria The left atrium is mildly dilated. Aortic Valve Normal aortic valve structure and function. There is no aortic valve stenosis. There is no aortic valve regurgitation. Mitral Valve The mitral valve appears normal. There is no mitral valve regurgitation. There is no mitral valve stenosis. Pulmonic Valve The pulmonic valve is likely normal. Tricuspid Valve Normal tricuspid valve structure. There is no tricuspid valve regurgitation. Tricuspid regurgitation envelope is inadequate for calculation of right ventricular systolic pressure. Moderately elevated right atrial pressure. There is no evidence of pulmonary hypertension. Great Vessels There is mild dilatation of the ascending aorta measuring 3.50 cm. The visualized portions of the pulmonary artery and branches are normal. Venous The inferior vena cava is dilated and collapses greater than 50% with inspiration. Pericardium/Pleural There is no evidence of pericardial effusion. Prior Study Comparison No prior study available for comparison. Measurements 2D Linear Measurements IVSd: 1.56 0.6-0.9/0.6-1.0 cm LVIDd: 6.98 3.9-5.3/4.2-5.9 cm LVIDd Index: 2.79 2.4-3.2/2.2-3.1 cm/m2 LVIDs: 5.61 2.0-3.6 cm LVPWd: 1.55 0.7-1.1 cm Ao Root: 3.80 2.1-3.5 cm LA Diam: 4.60 2.7-3.8/3.0-4.0 cm LAIDs Index: 1.84 1.5-2.3 cm/m2 LV Mass: 714.66 67-162/88-224 g LV Mass Index: 285.86 43-95/49-115 g/m2 LVOT Diam: 2.60 3.0+(-)1.3 cm 2D Systolic Function EF 4C: 19.90 >55% EF 2C: 23.60 >55% EF BiP: 21.10 >55% Mitral Valve MV Pk E: 0.89 MV PK A: 0.86 MV Decel Time: 80.00 E/A: 1.00 PHT: 24.00 MVA PHT: 9.17 Decel St[place]: 11.03 Aortic Valve AoV Pk Arthur: 1.31 AoV Mn Arthur: 0.91 AoV VTI: 0.23 AoV Pk Grad: 7.00 Aov Mn Grad: 4.00 YOAN Cont.VTI: 3.98 LVOT LVOT Pk Arthur: 0.98 LVOT Mn Arthur: 0.67 LVOT VTI: 0.17 LVOT Pk Grad: 4.00 LVOT Mn Grad: 2.00 LVOT Diam: 2.60 LVOT Area: 5.31 Diastolic Function MV Pk E: 0.89 MV Pk A: 0.86 E/A: 1.00 Right Ventricle TAPSE (mm): 29.00 TVS' Arthur: 16.00 Tricuspid Valve TR Pk Arthur: 2.04 TR Pk Grad: 17.00 RA Press: 3.00 RVSP: 21.00 Great Vessels Aorta Ao Root-2D: 3.80 2.0-3.7 cm Ao Asc: 3.50 2.1-3.4 cm Pulmonary Valve PV Pk Arthur: 0.95 Peak PV Grad: 4.00 Updated in Other Vendor System with Status of Final Julio Hoffman MD electronically signed on 10/04/2023 2:32:54 PM with status of Final
[2023-10-04 07:17] VITALS: BP 144/103; PULSE 96; RESP 20; TEMP 36.6; O2SAT 95
[2023-10-04 07:28] LABS: MANUAL DIFF FLAG NO
[2023-10-04 07:42] LABS: Basophils Percent Auto 0.5 % (0-2); Eosinophils Absolute Auto 0.3 X10*3/uL (0.0-0.4); Eosinophils Percent Auto 3.4 % (0-4); Hematocrit 41.1 % (42.0-52.0); Hemoglobin 12.9 g/dl (14.0-18.0); Imm Gran Abs Auto 0.03 X10*3/uL (0.00-0.03); Imm Gran Pct Auto 0.3 % (0.0-0.4); Lymphocytes Absolute Auto 1.5 X10*3/uL (1.2-4.9); Lymphocytes Percent Auto 17.8 % (20-40); Mean Corpuscular HGB Conc 31.4 g/dl (31.0-36.0); Mean Corpuscular Hemoglobin 29.1 pg (27.0-33.0); Mean Corpuscular Volume 92.6 fL (80.0-98.0); Mean Platelet Volume 9.4 fL (9.4-12.4); Monocytes Absolute Auto 0.8 X10*3/uL (0.1-1.2); Monocytes Percent Auto 9.3 % (2-11); Neutrophils Absolute Auto 5.9 x10*3/uL (2.0-8.3); Neutrophils Percent Auto 68.7 % (45-73); Platelet Count 284 X10*3/uL (160-400); Red Blood Count 4.44 X10*6/uL (4.60-5.80); Red Cell Distribution Width 13.4 % (11.0-16.0); White Blood Count 8.6 X10*3/uL (4.8-10.8)
[2023-10-04 08:00] LABS: Anion Gap 10 (12-20); Blood Urea Nitrogen 14 mg/dL (9-16); Calcium 9.2 mg/dL (8.4-10.2); Carbon Dioxide 32 mmol/L (22-29); Chloride 102 mmol/L (96-108); Creatinine Clr Calc Pharmacy 160.7; Estimated Glomerular Filt Rate > 60; Glucose Random 106 mg/dL (60-115); Potassium 3.8 mmol/L (3.3-5.1); Sodium 140 mmol/L (135-145)
[2023-10-04] MEDS: Aspirin Enteric Coated 81 MG TABLET.DR PO (08:25)
[2023-10-04] MEDS: Nicotine 14 MG PATCH.TD24 TRANSDERMA (08:25)
[2023-10-04] MEDS: Fluticasone Propionate Nasal 16 GM SPRAY 1 SPRAY NOSTRIL-B (08:27)
[2023-10-04] MEDS: Furosemide 40 MG/4 ML VIAL IVPUSH (08:28)
[2023-10-04] MEDS: lisinopriL 5 MG TABLET PO (08:36)
[2023-10-04 08:51] LABS: B Type Natriuretic Peptide 556 pg/mL (<100)
--- NOTE | 2023-10-04 10:50 | P.CONCA_ITS ---
History of Present Illness History of Present Illness Date of Service: 10/04/23 Requesting physician: Jeny Espinal Chief complaint: CHF exacerbation, cocaine use Narrative: 52-year-old gentleman presenting for shortness of breath. He used cocaine and overnight developed shortness of breath and came to the emergency department yesterday. He was in congestive heart failure. His blood pressure was elevated. He was given diuretics and had nitro paste placed on his chest. Since then he has been on diuretics. He is saying he is feeling little better this morning. He was getting echocardiography this morning. He has his significantly dilated LV with severe dysfunction. He has been using cocaine once a month. He also use alcohol and drinks some beers. No chest discomfort otherwise. Mild peripheral edema. Not on any medications and denying any previous cardiovascular issues. [facility] Past Medical History Medical History Cigarette smoker Cocaine abuse Spontaneous pneumothorax Hypertension Social History Social History Household Members: Family Housing: House Do you presently have visiting nurse or other home services: No Patient Tobacco Use Status: Current everyday Tobacco user Tobacco use type: Cigarette Cigarette Packs Per Day: 0.5 Cigarettes Per Day: 10 Years Smoked: 35 Smoked in Last 30 Days: Yes Patient Interested in Nicotine Replacement: Yes Patient Given Instructions on How to Stop Smoking: Yes Date Education Initiated: 10/03/23 Second Hand Smoke Exposure: No Use of substances other than those prescribed or required for medical reasons: Yes Substance Use Type: Crack/Cocaine and Marijuana Substance Use Frequency: Monthly Last Used Substance: Hours (ago) Currently Displaying Signs/Symptoms of Drug Intoxication Withdrawal: No Any prior treatment program specific to substance use: No Have you been hit, kicked, punched, or otherwise hurt by someone within the past year? If so, by whom?: No Do you feel safe in your current relationship?: Yes Is there a partner from a previous relationship who is making you feel unsafe now?: No Are you made to feel afraid or neglected: No Spiritual Healthcare Practices: none Cultural Healthcare Practices: none Advance Directives: No Advance Directives Information Provided: Yes Advance Directives on File: No Do you have thoughts of harming others: None Do you have a plan to hurt others: No Plan Recently lost weight without trying: No How much weight loss: Not applicable Eating poorly because of decreased appetite: No Nutrition screen score: 0 Nutrition Risks: No Nutritional Risk Poor oral hygiene: No Meds Allergies Allergy/AdvReac Type Severity Reaction Status Date / Time No Known Allergies Allergy Verified 05/26/23 09:26 Active Medications: Current Medications Acetaminophen (Acetaminophen 325 Mg Tablet) 650 mg PO Q6H PRN PRN Reason: Pain, Mild (Pain Scale 1-3) Albuterol/Ipratropium (Albuterol/Iprat 2.5/0.5mg 3 Ml Ampul.Neb) 3 ml INHALE RQ4H WHILE AWAKE [facility] Aspirin (Aspirin Enteric Coated 81 Mg Tablet.Dr) 81 mg PO DAILY [facility] Last Admin: 10/04/23 08:25 Dose: 81 mg Benzonatate (Benzonatate 100 Mg Capsule) 100 mg PO TID PRN PRN Reason: Cough Fluticasone Propionate (Fluticasone Propionate Nasal 16 Gm [place]) 1 spray NOSTRIL-B DAILY [facility] Last Admin: 10/04/23 08:27 Dose: 1 spray Furosemide (Furosemide 40 Mg/4 Ml Vial) 40 mg IVPUSH DAILY [facility]; Protocol Last Admin: 10/04/23 08:28 Dose: 40 mg Heparin Sodium (Porcine) (Heparin Sodium,Porcine 5,000 Unit/Ml Vial) 5,000 unit SUBCUT Q12H [facility] Last Admin: 10/04/23 03:47 Dose: 5,000 unit Nicotine (Nicotine 14 Mg Patch.Td24) 14 mg TRANSDERMA DAILY [facility] Last Admin: 10/04/23 08:25 Dose: 14 mg Ondansetron HCl (Ondansetron Hcl 4 Mg/2 Ml Vial) 4 mg IVPUSH Q8H PRN PRN Reason: Nausea and Vomiting Senna (Sennosides 8.6 Mg Tablet) 17.2 mg PO BEDTIME PRN PRN Reason: Constipation Sodium Chloride (0.9 % Sodium Chloride Flush 3 Ml Syringe) 3 ml IVFLUSH QSHIFT [facility] Last Admin: 10/04/23 08:28 Dose: 3 ml Sodium Chloride (Sodium Chloride 0.65 % Nasal 44 Ml Sprbtl) 1 spray NOSTRIL-B Q1H PRN PRN Reason: Nasal Congestion Last Admin: 10/04/23 06:07 Dose: 1 spray Home Medications Medication Instructions Recorded Confirmed Last Taken Type ibuprofen 200 mg tablet 400 mg PO Q6H PRN Pain 10/03/23 10/03/23 Unknown History Physical Exam 2 Vital Signs: Vital Signs: Last Vital Signs Temp 97.9 F 10/04/23 07:17 Pulse 96 10/04/23 07:17 Resp 20 10/04/23 07:17 BP 144/103 H 10/04/23 07:17 Pulse Ox 95 10/04/23 07:17 O2 Del Method Nasal Cannula 10/04/23 07:17 O2 Flow Rate 3 10/04/23 07:17 BMI result Body Mass Index 39.1 GENERAL APPEARANCE: Morbidly obese. NECK: no carotid bruit, + jugular venous distention. SKIN: no suspicious lesions, warm and dry. HEART: no murmurs, regular rate and rhythm. LUNGS: clear to auscultation bilaterally. ABDOMEN: soft, nontender. EXTREMITIES: Trace edema. PERIPHERAL PULSES: equal. NEUROLOGIC: No gross deficits, AAO X 3 Objective Labs and Meds 10/04/23 06:44 10/04/23 06:44 Lab results: Laboratory Results - last 24 hr 10/03/23 10/03/23 10/03/23 10:25 11:46 11:47 WBC RBC Hgb Hct MCV MCH MCHC RDW Plt Count MPV Immature Gran % (Auto) Neut % (Auto) Lymph % (Auto) [place] % (Auto) Eos % (Auto) Baso % (Auto) Lymph # (Auto) [place] # (Auto) Eos # (Auto) Baso # (Auto) Abs Immat Gran (auto) Absolute Neuts (auto) Absolute Nucleated RBC Nucleated RBC % (auto) Sodium Potassium Chloride Carbon Dioxide Anion Gap BUN Creatinine Estim Creat Clear Calc Estimated GFR Random Glucose Lactic Acid 1.3 Calcium Troponin I High Sens 60.8 H B-Natriuretic Peptide 1067 H Urine Opiates Screen Not Detected Urine Fentanyl Screen Not Detected Ur Barbiturates Screen Not Detected Ur Phencyclidine Scrn Not Detected Ur Amphetamines Screen Not Detected U Benzodiazepines Scrn Not Detected Urine Cocaine Screen POSITIVE H U Marijuana (THC) Screen Not Detected Influenza Type A (PCR) NEGATIVE Influenza Type B (PCR) NEGATIVE RSV RNA Qual (PCR) NEGATIVE SARS-CoV-2 RNA (RT-PCR) NEGATIVE 10/03/23 10/04/23 13:45 06:44 WBC 8.6 RBC 4.44 L Hgb 12.9 L Hct 41.1 L MCV 92.6 MCH 29.1 MCHC 31.4 RDW 13.4 Plt Count 284 MPV 9.4 Immature Gran % (Auto) 0.3 Neut % (Auto) 68.7 Lymph % (Auto) 17.8 L [place] % (Auto) 9.3 Eos % (Auto) 3.4 Baso % (Auto) 0.5 Lymph # (Auto) 1.5 [place] # (Auto) 0.8 Eos # (Auto) 0.3 Baso # (Auto) 0.0 Abs Immat Gran (auto) 0.03 Absolute Neuts (auto) 5.9 Absolute Nucleated RBC 0.000 Nucleated RBC % (auto) 0.0 Sodium 140 Potassium 3.8 Chloride 102 Carbon Dioxide 32 H Anion Gap 10 L BUN 14 Creatinine 0.83 Estim Creat Clear Calc 160.7 Estimated GFR > 60 Random Glucose 106 Lactic Acid Calcium 9.2 Troponin I High Sens 63.7 H B-Natriuretic Peptide 556 H Urine Opiates Screen Urine Fentanyl Screen Ur Barbiturates Screen Ur Phencyclidine Scrn Ur Amphetamines Screen U Benzodiazepines Scrn Urine Cocaine Screen U Marijuana (THC) Screen Influenza Type A (PCR) Influenza Type B (PCR) RSV RNA Qual (PCR) SARS-CoV-2 RNA (RT-PCR) Imaging Radiologist's impression: Impressions Chest CT 10/03/23 15:55 IMPRESSION: 1. Mild to moderate emphysema. 2. Scattered small bilateral pulmonary nodules, the largest in the right lower lobe measuring 6 mm. Per Fleischner Society guidelines, in the absence of underlying malignancy, in a patient at high risk, for nodules of this size, follow-up CT at 3-6 months is recommended, then at 18-24 months. 3. Small bilateral pleural effusions and bibasilar atelectasis. 4. No pneumothorax. 5. Mild nonspecific mediastinal adenopathy. Attention on follow-up studies is recommended. 6. Limited upper abdominal images show an exophytic right renal mass, measuring at least 19 mm, incompletely imaged and characterized. Suggest dedicated renal CT or MRI as clinically warranted. Fleischner guidelines were followed. Assessment and Plan (1) Congestive heart failure: Status: Acute (2) Cardiomyopathy: Status: Acute Plan 52-year-old gentleman presenting for new diagnosis of congestive heart failure and cardiomyopathy. Echocardiography has not been reviewed in full detail but clearly has dilated LV with LV dysfunction. Potential etiologies include alcohol and cocaine use. He will need ischemic evaluation eventually. Blood pressure is elevated. He was started on lisinopril 5 mg and he has received 1 dose today. He cannot give Entresto for next 36 hours because of risk of angioedema. I have stopped the lisinopril and changed it to losartan 25 mg daily. I am also adding spironolactone and Jardiance. Continue IV diuretics. Monitor electrolytes closely. He will need an outpatient diagnostic angiogram which we will arrange. Thank you for allowing me to participate in the care of your patient. Please feel free to contact me if you have any questions. Procedures Date of Service Date of Service: 10/04/23
[2023-10-04 11:14] VITALS: BP 138/83; PULSE 86; RESP 20; TEMP 36.4; O2SAT 95
[2023-10-04] MEDS: Albuterol/Iprat 2.5/0.5MG 3 ML AMPUL.NEB INHALE (11:33)
[2023-10-04 11:36] VITALS: PULSE 95; RESP 16; O2SAT 96
[2023-10-04] MEDS: Spironolactone 25 MG TABLET PO (11:54)
[2023-10-04] MEDS: Empagliflozin 10 MG TABLET PO (11:54)
[2023-10-04] MEDS: Losartan Potassium 25 MG TABLET PO (11:54)
--- NOTE | 2023-10-04 14:42 | MHC.CM.PN ---
Pt lives with his father, he is independent, does not have home health services or med equipment. HCP form was complete, naming his father, Magdi as HCP, added to paper and electronic charts, 2 copies given to pt. Pt is able to arrange transportation home upon DC. He does not currently have health insurance or a PCP, he is working on [employer]. with [facility] financial office, and will then obtain a PCP. CM will follow and assist with DC planning.
[2023-10-04 16:00] VITALS: BP 136/87; PULSE 98; RESP 18; TEMP 37.1; O2SAT 93
--- NOTE | 2023-10-04 16:33 | HO.PM.IMPN ---
Subjective Subjective Date of Service: 10/04/23 Interval History: chf ,cocaine use. Review of Systems sob seems somewhat improving denies any chest pain or cough or fever Physical Exam Vital Signs: Vital Signs: Last Vital Signs Temp 97.5 F 10/04/23 11:14 Pulse 95 10/04/23 11:36 Resp 16 10/04/23 11:36 BP 138/83 10/04/23 11:14 Pulse Ox 95 10/04/23 11:14 O2 Del Method Nasal Cannula 10/04/23 11:14 O2 Flow Rate 3 10/04/23 11:14 BMI result Body Mass Index 39.1 Appearance: Alert.? Oriented X3.? sob cvs: rrr, [id number] , no murmur res: air entry diminshed ,no wheezinf , few scattered rales abd: no rebound or guarding ,nt, bs present. ext pulses present , no cyanosis ,edema 1+. neuro: axo3 , nonfocal. Objective Data Active Medications Acetaminophen (Acetaminophen 325 Mg Tablet) 650 mg PO Q6H PRN PRN Reason: Pain, Mild (Pain Scale 1-3) Albuterol/Ipratropium (Albuterol/Iprat 2.5/0.5mg 3 Ml Ampul.Neb) 3 ml INHALE RQ4H WHILE AWAKE [facility] Last Admin: 10/04/23 15:13 Dose: Not Given Documented By: GEORGE Non-Admin Reason: Patient Refused Aspirin (Aspirin Enteric Coated 81 Mg Tablet.) 81 mg PO DAILY [facility] Last Admin: 10/04/23 08:25 Dose: 81 mg Documented By: MEGHANN Benzonatate (Benzonatate 100 Mg Capsule) 100 mg PO TID PRN PRN Reason: Cough Empagliflozin (Empagliflozin 10 Mg Tablet) 10 mg PO DAILY [facility] Last Admin: 10/04/23 11:54 Dose: 10 mg Documented By: MEGHANN Fluticasone Propionate (Fluticasone Propionate Nasal 16 Gm [place]) 1 spray NOSTRIL-B DAILY [facility] Last Admin: 10/04/23 08:27 Dose: 1 spray Documented By: MEGHANN Furosemide (Furosemide 40 Mg/4 Ml Vial) 40 mg IVPUSH DAILY [facility]; Protocol Last Admin: 10/04/23 08:28 Dose: 40 mg Documented By: MEGHANN Heparin Sodium (Porcine) (Heparin Sodium,Porcine 5,000 Unit/Ml Vial) 5,000 unit SUBCUT Q12H [facility] Last Admin: 10/04/23 03:47 Dose: 5,000 unit Documented By: BERNARDO Losartan Potassium (Losartan Potassium 25 Mg Tablet) 25 mg PO DAILY [facility]; Protocol Last Admin: 10/04/23 11:54 Dose: 25 mg Documented By: MEGHANN Nicotine (Nicotine 14 Mg Patch.Td24) 14 mg TRANSDERMA DAILY [facility] Last Admin: 10/04/23 08:25 Dose: 14 mg Documented By: MEGHANN Ondansetron HCl (Ondansetron Hcl 4 Mg/2 Ml Vial) 4 mg IVPUSH Q8H PRN PRN Reason: Nausea and Vomiting Senna (Sennosides 8.6 Mg Tablet) 17.2 mg PO BEDTIME PRN PRN Reason: Constipation Sodium Chloride (0.9 % Sodium Chloride Flush 3 Ml Syringe) 3 ml IVFLUSH QSHIFT [facility] Last Admin: 10/04/23 08:28 Dose: 3 ml Documented By: MEGHANN Sodium Chloride (Sodium Chloride 0.65 % Nasal 44 Ml Sprbtl) 1 spray NOSTRIL-B Q1H PRN PRN Reason: Nasal Congestion Last Admin: 10/04/23 06:07 Dose: 1 spray Documented By: BERNARDO Spironolactone (Spironolactone 25 Mg Tablet) 25 mg PO DAILY [facility]; Protocol Last Admin: 10/04/23 11:54 Dose: 25 mg Documented By: MEGHANN Labs 10/04/23 06:44 10/04/23 06:44 Labs: Laboratory Results - last 24 hr 10/04/23 06:44 MCV 92.6 MCH 29.1 MCHC 31.4 RDW 13.4 Plt Count 284 MPV 9.4 Immature Gran % (Auto) 0.3 Neut % (Auto) 68.7 Lymph % (Auto) 17.[address] [place] % (Auto) 9.3 Eos % (Auto) 3.4 Baso % (Auto) 0.5 Lymph # (Auto) 1.5 [place] # (Auto) 0.8 Eos # (Auto) 0.3 Baso # (Auto) 0.0 Abs Immat Gran (auto) 0.03 Absolute Neuts (auto) 5.9 Absolute Nucleated RBC 0.000 Nucleated RBC % (auto) 0.0 Anion Gap 10 L Estim Creat Clear Calc 160.7 Estimated GFR > 60 Random Glucose 106 Calcium 9.2 B-Natriuretic Peptide 556 H Microbiology Microbiology Results: Microbiology 10/03/23 11:58 Blood Culture - Preliminary Blood - Venous No growth after 24 hours. 10/03/23 11:46 Blood Culture - Preliminary Blood - Venous No growth after 24 hours. Assessment and Plan (1) Cardiomyopathy: Status: Acute (2) Congestive heart failure: Status: Acute (3) Hypoxia: Status: Acute Plan 52-year-old male with history of hypertension, spontaneous pneumothorax 10 years ago, who is a current 5-10 cigarettes per day smoker (previously 2ppd) admitted for congestive heart failure exacerbation with acute hypoxemic respiratory failure secondary to cocaine abuse. acute hypoxemic respiratory failure secondary to CHF -continue 2L supplemental O2 to maintain oximetry >90% Acute CHF exacerbation-2/2 cocaine use -CXR shows mild pulmonary vascular congestion, BNP >1000 strict I&O need to moniter closely,daily weights,cardiac diet follow renal function, electrolytes, BNP echocardiogram : ef 20-25% cardiology consult--IV lasix 40mg daily,added losartan ( inanticipation to convert to enteresto),spirnolactone /jaurdance. elevated troponins- likely demand ischemia 2/2 CHF and cocaine abuse -trops flat- 60.8 --> 63.7 -no chest pain, EKG without MARY -no bb due to cocaine use, asa 324mg now continue 81mg daily -echo Hypertension -not on any home antihypertensives:added losaratan ,continue lasix. Cocaine abuse -declines addiction medicine consult -counseled on cessation Cigarette smoking -patch for NRT -counseled on cessation h/o spontaneous pneumonthorax -given smoking history and presentation. chest ct -shows pulm nodules-repeat ct imaging in few months renal exophytic right renal mass- will start with renal us. morbid obesity: Encouraged to lose weight, cutdown calories DVT prophylaxis- heparin Full code ongoing hosplitisation need:congestive heart failure and demand ischemia resulting in acute hypoxemia secondary to cocaine abuse, patient will require supplemental O2, nitrate therapy, IV diuresis. He will require close cardiac monitoring as well as further evaluation with echocardiogram and expert consultation to monitor for and prevent further cardiac decompensation. Quality Stroke Does the patient have a stroke diagnosis?: No VTE Prior VTE?: No VTE Risk Level:: Medical - moderate - high VTE Device Contraindication: Treatment Not Indicated VTE Drug Contraindication: N/A - Med Ordered
[2023-10-04 19:57] VITALS: BP 133/75; PULSE 93; RESP 20; TEMP 37; O2SAT 95
[2023-10-05] VITALS (9 sets, daily range): BP systolic 118–166; BP diastolic 71–92; PULSE 89–96; RESP 16–20; TEMP 36.1–37.1; O2SAT 93–97; BMI 38.6
[2023-10-05] MEDS: Heparin Sodium,Porcine 5,000 UNIT/ML VIAL 5000 UNIT SUBCUT ×2 (03:56→15:29)
[2023-10-05 06:38] LABS: Anion Gap 11 (12-20); Blood Urea Nitrogen 14 mg/dL (9-16); Calcium 9.2 mg/dL (8.4-10.2); Carbon Dioxide 31 mmol/L (22-29); Chloride 101 mmol/L (96-108); Creatinine Clr Calc Pharmacy 171.9; Estimated Glomerular Filt Rate > 60; Glucose Random 96 mg/dL (60-115); Potassium 4.2 mmol/L (3.3-5.1); Sodium 139 mmol/L (135-145)
[2023-10-05 06:45] LABS: B Type Natriuretic Peptide 250 pg/mL (<100)
[2023-10-05] MEDS: Albuterol/Iprat 2.5/0.5MG 3 ML AMPUL.NEB INHALE ×2 (07:34→15:15)
[2023-10-05] MEDS: Furosemide 40 MG/4 ML VIAL IVPUSH (08:14)
[2023-10-05] MEDS: Nicotine 14 MG PATCH.TD24 TRANSDERMA (08:14)
[2023-10-05] MEDS: Losartan Potassium 25 MG TABLET PO (08:15)
[2023-10-05] MEDS: Empagliflozin 10 MG TABLET PO (08:15)
[2023-10-05] MEDS: Aspirin Enteric Coated 81 MG TABLET.DR PO (08:15)
[2023-10-05] MEDS: Spironolactone 25 MG TABLET PO (08:15)
[2023-10-05] MEDS: 0.9 % Sodium Chloride Flush 3 ML SYRINGE IVFLUSH ×3 (08:15→19:59)
[2023-10-05] MEDS: Fluticasone Propionate Nasal 16 GM SPRAY 1 SPRAY NOSTRIL-B (08:46)
--- NOTE | 2023-10-05 11:02 | P.PNCA_ITS ---
Subjective Subjective Date of Service: 10/05/23 Interval history: Seen examined at bedside. Feeling better. Blood pressure is better controlled at this point. He was able to lay flat at night without any symptoms. BNP is down trending. We discussed about insurance and currently has no insurance. He is in the process of getting [employer]. Physical Exam Vital Signs: Last Vital Signs Temp 97.1 F 10/05/23 07:17 Pulse 96 10/05/23 07:35 Resp 16 10/05/23 07:35 BP 166/78 H 10/05/23 07:17 Pulse Ox 95 10/05/23 07:17 O2 Del Method Nasal Cannula 10/05/23 07:17 O2 Flow Rate 3 10/05/23 07:17 BMI result Body Mass Index 38.6 GENERAL APPEARANCE: Morbidly obese. NECK: no carotid bruit, no jugular venous distention. SKIN: no suspicious lesions, warm and dry. HEART: no murmurs, regular rate and rhythm. LUNGS: clear to auscultation bilaterally. ABDOMEN: soft, nontender. EXTREMITIES: Trace edema. PERIPHERAL PULSES: equal. NEUROLOGIC: No gross deficits, AAO X 3 Objective Labs and Meds 10/04/23 06:44 10/05/23 06:02 Lab results: Laboratory Results - last 24 hr 10/05/23 06:02 Sodium 139 Potassium 4.2 Chloride 101 Carbon Dioxide 31 H Anion Gap 11 L BUN 14 Creatinine 0.77 Estim Creat Clear Calc 171.9 Estimated GFR > 60 Random Glucose 96 Calcium 9.2 B-Natriuretic Peptide 250 H Imaging Radiologist's impression: Impressions Renal Ultrasound 10/04/23 18:05 IMPRESSION: 1. Right mid renal Bosniak category 2 lesion and inferior right renal pole Bosniak category 1 lesions are seen, for which no follow up imaging is recommended. 2. The right upper renal pole lesion reported on CT scan of chest could not be demonstrated on ultrasound examination. Further evaluation with pre and postcontrast MRI of the abdomen is therefore recommended. 3. Nonspecific Echogenic focus without acoustic shadowing is seen in the inferior right renal cortex. Progress Note: A&P Assessment and plan (1) Cardiomyopathy: Status: Acute (2) Congestive heart failure: Status: Acute Plan 52-year-old gentleman presenting with a new diagnosis of congestive heart failure on background of alcohol and cocaine use. Blood pressure was elevated on admission. He is currently taking losartan, spironolactone, Jardiance and Lasix. I think he is reaching euvolemia and he can be changed to furosemide 40 mg p.o. once a day. Would not change to Entresto and I am not sure whether he can afford Jardiance currently too. We would discharge him on generic medications for now. We will check for Entresto and Jardiance coverage as outpatient. He will need ischemic evaluation which we will arrange as outpatient. I have advised him to stop using cocaine. Adding carvedilol 3.125 mg twice a day. Thank you for allowing me to participate in the care of your patient. Please feel free to contact me if you have any questions. Time Spent With Patient Time: Total time managing care of this patient today ____ minutes. Progress Note: Quality Stroke Does the patient have a stroke diagnosis?: No Procedures Date of Service Date of Service: 10/05/23
[2023-10-05] MEDS: carvediloL 3.125 MG TABLET PO ×2 (12:13→19:59)
--- NOTE | 2023-10-05 14:37 | P.CDIM_ITS ---
PROVIDER RESPONSE TEXT: To clarify, the appropriate diagnosis supported by the clinical indicators: Systolic: acute QUERY TEXT: PHYSICIAN'S DOCUMENTATION REQUEST Date of Query: 10/05/2023 02:26 PM EST Patient Name: Sandip Forte Admit Date: 10/03/2023 Dear Jeny Espinal, A review of the medical record indicates additional documentation may be needed. Please review below and update the documentation accordingly. Clinical Indicators: Per Hospitalist Progress Note 10/04/23: Acute CHF exacerbation-2/2 cocaine use -CXR shows mild pulmonary vascular congestion, BNP >1000 strict I&O need to moniter closely,daily weights,cardiac diet follow renal function, electrolytes, BNP echocardiogram : ef 20-25% cardiology consult--IV lasix 40mg daily,added losartan ( inanticipation to convert to enteresto),spir nolactone /jaurdance. Please provide further specificity regarding the most likely type and acuity of CHF you are evaluatin g, treating, or monitoring. Systolic Please specify if Acute, Chronic, or Acute on chronic, or Unable to determine Diastolic Please specify if Acute, Chronic, or Acute on chronic, or Unable to determine Combined Systolic/Diastolic Please specify if Acute, Chronic, or Acute on chronic, or Unable to determine Other (explain) Clinically unable to determine (explain) Thank you, Sumaya Galeana RN Use of terms such as suspected, likely, concern for, or probable (associated with a specific diagnosi s that is being evaluated, monitored, or treated as if it exists) are acceptable and can be coded in the inpatient se tting, when documented at the time of discharge. Please use your independent medical judgment in providing your response. THIS QUERY IS PART OF THE PERMANENT MEDICAL RECORD
--- NOTE | 2023-10-05 16:26 | HO.PM.IMPN ---
Subjective Subjective Date of Service: 10/05/23 Interval History: chf ,cocaine use. Review of Systems sob seems somewhat improving denies any chest pain or cough or fever Physical Exam Vital Signs: Vital Signs: Last Vital Signs Temp 98.7 F 10/05/23 14:56 Pulse 94 10/05/23 15:17 Resp 18 10/05/23 15:17 BP 126/92 H 10/05/23 14:56 Pulse Ox 93 10/05/23 14:56 O2 Del Method Nasal Cannula 10/05/23 14:56 O2 Flow Rate 2.5 10/05/23 14:56 BMI result Body Mass Index 38.6 Appearance: Alert.? Oriented X3.? sob cvs: rrr, [id number] , no murmur res: air entry diminshed ,no wheezinf , few scattered rales abd: no rebound or guarding ,nt, bs present. ext pulses present , no cyanosis ,edema 1+. neuro: axo3 , nonfocal. Objective Data Active Medications Acetaminophen (Acetaminophen 325 Mg Tablet) 650 mg PO Q6H PRN PRN Reason: Pain, Mild (Pain Scale 1-3) Albuterol/Ipratropium (Albuterol/Iprat 2.5/0.5mg 3 Ml Ampul.Neb) 3 ml INHALE RQ4H WHILE AWAKE [facility] Last Admin: 10/05/23 15:15 Dose: 3 ml Documented By: GEORGE Aspirin (Aspirin Enteric Coated 81 Mg Tablet.Dr) 81 mg PO DAILY [facility] Last Admin: 10/05/23 08:15 Dose: 81 mg Documented By: SHANIA Benzonatate (Benzonatate 100 Mg Capsule) 100 mg PO TID PRN PRN Reason: Cough Carvedilol (Carvedilol 3.125 Mg Tablet) 3.125 mg PO BID [facility]; Protocol Last Admin: 10/05/23 12:13 Dose: 3.125 mg Documented By: SHANIA Empagliflozin (Empagliflozin 10 Mg Tablet) 10 mg PO DAILY [facility] Last Admin: 10/05/23 08:15 Dose: 10 mg Documented By: SHANIA Fluticasone Propionate (Fluticasone Propionate Nasal 16 Gm [place]) 1 spray NOSTRIL-B DAILY [facility] Last Admin: 10/05/23 08:46 Dose: 1 spray Documented By: SHANIA Furosemide (Furosemide 40 Mg/4 Ml Vial) 40 mg IVPUSH DAILY [facility]; Protocol Last Admin: 10/05/23 08:14 Dose: 40 mg Documented By: SHANIA Heparin Sodium (Porcine) (Heparin Sodium,Porcine 5,000 Unit/Ml Vial) 5,000 unit SUBCUT Q12H [facility] Last Admin: 10/05/23 15:29 Dose: 5,000 unit Documented By: SHANIA Losartan Potassium (Losartan Potassium 25 Mg Tablet) 25 mg PO DAILY [facility]; Protocol Last Admin: 10/05/23 08:15 Dose: 25 mg Documented By: SHANIA Nicotine (Nicotine 14 Mg Patch.Td24) 14 mg TRANSDERMA DAILY [facility] Last Admin: 10/05/23 08:14 Dose: 14 mg Documented By: SHANIA Ondansetron HCl (Ondansetron Hcl 4 Mg/2 Ml Vial) 4 mg IVPUSH Q8H PRN PRN Reason: Nausea and Vomiting Senna (Sennosides 8.6 Mg Tablet) 17.2 mg PO BEDTIME PRN PRN Reason: Constipation Sodium Chloride (0.9 % Sodium Chloride Flush 3 Ml Syringe) 3 ml IVFLUSH QSHIFT [facility] Last Admin: 10/05/23 15:28 Dose: 3 ml Documented By: SHANIA Sodium Chloride (Sodium Chloride 0.65 % Nasal 44 Ml Sprbtl) 1 spray NOSTRIL-B Q1H PRN PRN Reason: Nasal Congestion Last Admin: 10/04/23 06:07 Dose: 1 spray Documented By: BERNARDO Spironolactone (Spironolactone 25 Mg Tablet) 25 mg PO DAILY [facility]; Protocol Last Admin: 10/05/23 08:15 Dose: 25 mg Documented By: SHANIA Labs 10/04/23 06:44 10/05/23 06:02 Labs: Laboratory Results - last 24 hr 10/05/23 06:02 Anion Gap 11 L Estim Creat Clear Calc 171.9 Estimated GFR > 60 Random Glucose 96 Calcium 9.2 B-Natriuretic Peptide 250 H Microbiology Microbiology Results: Microbiology 10/03/23 11:58 Blood Culture - Preliminary Blood - Venous No growth after 48 hours. 10/03/23 11:46 Blood Culture - Preliminary Blood - Venous No growth after 48 hours. Assessment and Plan (1) Cardiomyopathy: Status: Acute (2) Congestive heart failure: Status: Acute (3) Hypoxia: Status: Acute Plan 52-year-old male with history of hypertension, spontaneous pneumothorax 10 years ago, who is a current 5-10 cigarettes per day smoker (previously 2ppd) admitted for congestive heart failure exacerbation with acute hypoxemic respiratory failure secondary to cocaine abuse. acute hypoxemic respiratory failure secondary to CHF -continue 2L supplemental O2 to maintain oximetry >90% Acute CHF exacerbation(possible systolic dysfunction)-2/2 cocaine use -CXR shows mild pulmonary vascular congestion, BNP >1000 strict I&O need to moniter closely,daily weights,cardiac diet follow renal function, electrolytes, BNP echocardiogram : ef 20-25% cardiology consult--IV lasix 40mg daily,added losartan ( inanticipation to convert to enteresto),spirnolactone /jaurdance. elevated troponins- likely demand ischemia 2/2 CHF and cocaine abuse -trops flat- 60.8 --> 63.7 -no chest pain, EKG without MARY -no bb due to cocaine use, asa 324mg now continue 81mg daily -echo Hypertension -not on any home antihypertensives:added losaratan ,continue lasix. Cocaine abuse -declines addiction medicine consult -counseled on cessation Cigarette smoking -patch for NRT -counseled on cessation h/o spontaneous pneumonthorax -given smoking history and presentation. chest ct -shows pulm nodules-repeat ct imaging in few months renal exophytic right renal mass- will start with renal us. morbid obesity: Encouraged to lose weight, cutdown calories DVT prophylaxis- heparin Full code ongoing hosplitisation need:congestive heart failure and demand ischemia resulting in acute hypoxemia secondary to cocaine abuse, patient will require supplemental O2, nitrate therapy, IV diuresis. He will require close cardiac monitoring as well as further evaluation with echocardiogram and expert consultation to monitor for and prevent further cardiac decompensation. Quality Stroke Does the patient have a stroke diagnosis?: No VTE Prior VTE?: No VTE Risk Level:: Medical - moderate - high VTE Device Contraindication: Treatment Not Indicated VTE Drug Contraindication: N/A - Med Ordered
[2023-10-06 03:56] VITALS: BP 142/95; PULSE 91; RESP 20; TEMP 36.8; O2SAT 94
[2023-10-06] MEDS: Heparin Sodium,Porcine 5,000 UNIT/ML VIAL 5000 UNIT SUBCUT (04:04)
[2023-10-06 06:00] VITALS: BMI 38.4
[2023-10-06 07:16] VITALS: BP 120/90; PULSE 86; RESP 20; TEMP 35.9; O2SAT 96
[2023-10-06] MEDS: Losartan Potassium 25 MG TABLET PO (08:11)
[2023-10-06] MEDS: Nicotine 14 MG PATCH.TD24 TRANSDERMA (08:11)
[2023-10-06] MEDS: Spironolactone 25 MG TABLET PO (08:11)
[2023-10-06] MEDS: Aspirin Enteric Coated 81 MG TABLET.DR PO (08:11)
[2023-10-06] MEDS: Empagliflozin 10 MG TABLET PO (08:11)
[2023-10-06] MEDS: Furosemide 40 MG/4 ML VIAL IVPUSH (08:11)
[2023-10-06] MEDS: carvediloL 3.125 MG TABLET PO (08:11)
[2023-10-06] MEDS: Fluticasone Propionate Nasal 16 GM SPRAY 1 SPRAY NOSTRIL-B (08:13)
[2023-10-06] MEDS: 0.9 % Sodium Chloride Flush 3 ML SYRINGE IVFLUSH (08:14)
--- NOTE | 2023-10-06 10:54 | MHC.CM.PN ---
Pt is not yet ready for DC. CM will follow and assist as needed for DC planning.
[2023-10-06 11:11] VITALS: BP 120/92; PULSE 88; RESP 20; TEMP 35.9; O2SAT 96
--- NOTE | 2023-10-06 11:46 | P.PNCA_ITS ---
Subjective Subjective Date of Service: 10/06/23 Interval history: Seen examined at bedside. Feeling better. Physical Exam Vital Signs: Last Vital Signs Temp 96.7 F L 10/06/23 11:11 Pulse 88 10/06/23 11:11 Resp 20 10/06/23 11:11 BP 120/92 H 10/06/23 11:11 Pulse Ox 96 10/06/23 11:11 O2 Del Method Nasal Cannula 10/06/23 11:11 O2 Flow Rate 2.5 10/06/23 11:11 BMI result Body Mass Index 38.4 GENERAL APPEARANCE: Morbidly obese. NECK: no carotid bruit, no jugular venous distention. SKIN: no suspicious lesions, warm and dry. HEART: no murmurs, regular rate and rhythm. LUNGS: Mild end expiratory wheezes. ABDOMEN: soft, nontender. EXTREMITIES: Trace edema. PERIPHERAL PULSES: equal. NEUROLOGIC: No gross deficits, AAO X 3 Objective Labs and Meds 10/04/23 06:44 10/05/23 06:02 Progress Note: A&P Assessment and plan (1) Cardiomyopathy: Status: Acute (2) Congestive heart failure: Status: Acute (3) Cocaine abuse: Status: Acute Plan Pleasant 52 year gentleman presenting for new onset congestive heart failure and cardiomyopathy with severely reduced ejection fraction and dilation of ventricle. He has background of alcohol use and cocaine use. Has been started on guideline directed medical therapy and has been improving clinically. Tolerating medications. He has no insurance currently. I think he may not be able to afford Jardiance Entresto. Would discharge him with the generic medications including losartan, carvedilol, spironolactone and furosemide. He has applied for [employer] and hopefully as his insurance kicks in we can check for prior authorization for the medications. He has been advised multiple times about stopping cocaine use and alcohol use. Further workup including ischemic evaluation will be planned as outpatient. Will set him up to come see us as outpatient in the coming weeks. Thank you for allowing me to participate in the care of your patient. Please feel free to contact me if you have any questions. Time Spent With Patient Time: Total time managing care of this patient today ____ minutes. Progress Note: Quality Stroke Does the patient have a stroke diagnosis?: No Procedures Date of Service Date of Service: 10/06/23
[2023-10-06 13:00] VITALS: O2SAT 93
--- NOTE | 2023-10-06 13:01 | PC.NURSE ---
Patient A&OX4. ORTIZ to command 5/5, OOB with steady gait independent in room. LS dim on 3L oxygen via nasal cannula this am. Denies SOB or CP, NSR on tele. Approximately 1110 had 5 beat vtach while up in bathroom completely asymptomatic. Dr Espinal notified. 1300 oxygen removed per request of intially satting 96% on 3L. When removed sats 93-94 on room air, plan to continue to monitor then possible discharge. Will continue to monitor and report changes
--- NOTE | 2023-10-06 15:11 | MHC.CM.PN ---
Pt has been medically cleared for DC. He did receive his [employer] ins number and said that he would fill new scripts here at [facility] pharmacy. He will go home via private transport.
--- NOTE | 2023-10-06 15:13 | P.DS_ITS ---
DS: Providers Provider Date of Service: 10/06/23 Date of admission: 10/03/23 15:27 Date of discharge: 10/06/23 Primary care physician: None Physician Consults: 10/03/23 15:07 Consult to Cardiology Stat Consulting Provider: [facility] Reason for consultation: nonspecific EKG changes, elevated troponin Has provider been notified: Yes 10/03/23 15:47 Consult to Cardiology Routine Consulting Provider: [facility] Reason for consultation: chf, elevated trop, cocaine abuse 10/05/23 17:28 Consult to Urology Routine Consulting Provider: [facility] Reason for consultation: possible renal mass Has provider been notified: No Attending physician on discharge: Jeny Espinal Discharging clinician: Jeny Espinal DS: Diagnosis Discharge Diagnosis (1) Cardiomyopathy: Status: Acute (2) Congestive heart failure: Status: Acute (3) Cocaine abuse: Status: Acute DS: Summary Hospital Course Hospital Course: 52-year-old male with history of hypertension, spontaneous pneumothorax 10 years ago, who is a current 5-10 cigarettes per day smoker (previously 2ppd) presented to the ED earlier today for evaluation of sudden-onset shortness of breath that started around 330 this morning. He reports he was sleeping and woke up abruptly short of breath and difficulty catching his breath which worsens with exertion. He states he has also had dry cough and nasal congestion ongoing for about 1 month. He is reporting orthopnea that has been ongoing for 1 month, but states he only uses 1 pillow at night. Denies any fevers, chills, sore throat, abdominal pain, nausea, vomiting, diarrhea, lightheadedness, headache, chest pain. Denies any known sick contacts, recent travel. He reports occasional alcohol use. Reports using 0.5-1 g of cocaine about once monthly, last use was last night. He does report diet heavy with processed foods including daily meets. Denies any recent weight gain or lower extremity edema. On arrival, pt tachycardic to 113, hypoxic to 89%, placed on 3L supplemental O2 maintaining oximetry 94%. He is hypertensive to 130/106 on admission. There is a leukocytosis of 14.5. Renal function and electrolyte levels normal. Glucose 129. Lactic acid 1.3. Initial troponin 60.8, repeat 63.7. BNP 1067. Urine tox screen positive for cocaine. Negative for influenza, COVID-19, RSV. Chest x-ray shows cardiomegaly with mild CHF. EKG shows sinus tachycardia, rate 111 with nonspecific T-wave abnormality. In the ED, given 324 mg ASA, 40 mg IV Lasix, 1 mg lorazepam, 1 in nitroglycerin. He was initially also thought to possibly have a pneumonia was empirically given 1 g IV ceftriaxone and Zithromax. Hospital course: Patient was admitted for shortness of breath found to have acute hypoxemic respiratory failure possibly secondary to CHF: Patient was started on IV diuretics seems to be improved significantly, echo was done his EF is around 20%: Seen by Cardiology recommended to add IV Lasix, losartan, spironolactone and juardance: Patient shortness of breath seems improved, diuresed well, patient will be going home with p.o. Lasix, losartan, spironolactone and juardance. Patient off oxygen, feeling much better. Cardiology may arrange their own appointment. Patient is saying he is going to quit further cocaine use. In in addition patient was found to have question of right renal area mass on CT scan: Ultrasound was done which shows -patient has 2 right renal cysts, The right upper renal pole lesion reported on CT scan of chest could not be demonstrated on ultrasound examination: Follow-up with Urology outpatient for further management as well as workup which may need MRI both kindney. plan: Switched to p.o. Lasix, losartan, spironolactone and Jardiance-continue that, follow-up with Cardiology outpatient. Patient was strongly advised to abstain from cocaine and smoking. Follow-up with Urology outpatient for workup of renal cyst versus mass. Above management discussed with the patient in detail length his he understand a nd in agreement with the above plan, time spent 50 minute, staff witness that conversation. Time Attestation Discharge coordination time: Greater than 30 minutes Quality: Safe Use of Opioids Does Pt have an Active Cancer Diagnosis on the Problem List?: No Quality: Stroke Does the patient have a stroke diagnosis?: No Physical Exam Vital Signs: Vital Signs: Last Vital Signs Temp 96.7 F L 10/06/23 11:11 Pulse 88 10/06/23 11:11 Resp 20 10/06/23 11:11 BP 120/92 H 10/06/23 11:11 Pulse Ox 93 10/06/23 13:00 O2 Del Method Room Air 10/06/23 13:00 O2 Flow Rate 2.5 10/06/23 11:11 BMI result Body Mass Index 38.4 Appearance: Alert.? Oriented X3.? sob cvs: rrr, [id number] , no murmur res: air entry diminshed ,no wheezinf , few scattered rales abd: no rebound or guarding ,nt, bs present. ext pulses present , no cyanosis ,edema 1+. neuro: axo3 , nonfocal. DS: Data Data Completed and Pending Labs on day of discharge: Preliminary micro results at discharge 10/03/23 11:58 Blood Culture - Preliminary Blood - Venous No growth after 48 hours. 10/03/23 11:46 Blood Culture - Preliminary Blood - Venous No growth after 48 hours. Imaging Chest x-ray: Radiologist's impression: ITS Impressions Chest X-Ray 10/03/23 10:10 IMPRESSION: Cardiomegaly with mild CHF. Chest CT 10/03/23 15:55 IMPRESSION: 1. Mild to moderate emphysema. 2. Scattered small bilateral pulmonary nodules, the largest in the right lower lobe measuring 6 mm. Per Fleischner Society guidelines, in the absence of underlying malignancy, in a patient at high risk, for nodules of this size, follow-up CT at 3-6 months is recommended, then at 18-24 months. 3. Small bilateral pleural effusions and bibasilar atelectasis. 4. No pneumothorax. 5. Mild nonspecific mediastinal adenopathy. Attention on follow-up studies is recommended. 6. Limited upper abdominal images show an exophytic right renal mass, measuring at least 19 mm, incompletely imaged and characterized. Suggest dedicated renal CT or MRI as clinically warranted. Fleischner guidelines were followed. Renal Ultrasound 10/04/23 18:05 IMPRESSION: 1. Right mid renal Bosniak category 2 lesion and inferior right renal pole Bosniak category 1 lesions are seen, for which no follow up imaging is recommended. 2. The right upper renal pole lesion reported on CT scan of chest could not be demonstrated on ultrasound examination. Further evaluation with pre and postcontrast MRI of the abdomen is therefore recommended. 3. Nonspecific Echogenic focus without acoustic shadowing is seen in the inferior right renal cortex. Discharge Plan Discharge Anticipated Discharge Date/Time: 10/06/23 14:38 Patient Disposition: Home, Self-Care Discharge Diagnosis: chf ,possible right renal cysts vs mass Referrals: Adalid Troncoso MD [Physician] - 1 Week Physician,None [Primary Care Provider] - 1 Week Discharge Medications: New furosemide 40 mg Tablet 40 mg PO DAILY Qty: 90 0RF Protocol: Hold for SBP< HOLD for SBP < : 90 acetaminophen 325 mg Tablet 650 mg PO Q6H PRN (Reason: Pain, Mild (Pain Scale 1-3)) Qty: 10 0RF aspirin 81 mg Tablet,Delayed Release (Dr/Ec) 81 mg PO DAILY Qty: 90 0RF spironolactone 25 mg Tablet 25 mg PO DAILY Qty: 90 0RF Protocol: Hold for SBP< HOLD for SBP < : 90 carvedilol 3.125 mg Tablet 3.125 mg PO BID Qty: 240 0RF Protocol: Hold for SBP/HR < HOLD for SBP < : 90 HOLD for HR < : 60 losartan 25 mg Tablet 25 mg PO DAILY Qty: 90 0RF Protocol: Hold for SBP< HOLD for SBP < : 90 fluticasone propionate 50 mcg/actuation [place],Suspension 1 spray intranasal DAILY Qty: 1 0RF Discontinued ibuprofen 200 mg Tablet 400 mg PO Q6H PRN (Reason: Pain) Discharge Orders: Discharge Order (Routine); Ordered 10/06/23 Ordered By: Jeny Espinal Diet: Advance to usual diet Activity on Discharge: As tolerated Stand Alone Forms: Patient Portal Discharge page Care Plan Goals: Patient was admitted for shortness of breath found to have acute hypoxemic respiratory failure possibly secondary to CHF: Patient was started on IV diuretics seems to be improved significantly, echo was done his EF is around 20%: Seen by Cardiology recommended to add IV Lasix, losartan, spironolactone and juardance: Patient shortness of breath seems improved, diuresed well, patient will be going home with p.o. Lasix, losartan, spironolactone and juardance. Patient off oxygen, feeling much better. Cardiology may arrange their own appointment. Patient is saying he is going to quit further cocaine use. In in addition patient was found to have question of right renal area mass on CT scan: Ultrasound was done which shows -patient has 2 right renal cysts, The right upper renal pole lesion reported on CT scan of chest could not be demonstrated on ultrasound examination: Follow-up with Urology outpatient for further management as well as workup which may need MRI both kind[place]. Health Concerns: As above. Plan of Treatment: As above. Assessment: As above. Patient Instructions: Heart Failure (DC)
[2023-10-06 15:52] VITALS: BP 125/78; PULSE 85; RESP 20; TEMP 36.1; O2SAT 93
== END 2023-10-06 16:35 | disposition home or self-care (01) | DRG 816 ==
LOC: HO.ED 14:38 → HO.EDOVER 16:19 → HO.IMC 16:49
PROVIDERS: Physician Assistant Medical; Admitting Provider Physician Assistant; Emergency Provider Emergency Medicine Emergency Medical Services; Visit Provider Internal Medicine
DX: T40.5X1A Poisoning by cocaine, accidental (unintentional), initial encounter (principal); J96.01 Acute respiratory failure with hypoxia; I50.21 Acute systolic (congestive) heart failure; I11.0 Hypertensive heart disease with heart failure; F14.10 Cocaine abuse, uncomplicated; I24.89 Other forms of acute ischemic heart disease; F17.210 Nicotine dependence, cigarettes, uncomplicated; I42.9 Cardiomyopathy, unspecified; E66.01 Morbid (severe) obesity due to excess calories; Z68.38 Body mass index [BMI] 38.0-38.9, adult; Z71.6 Tobacco abuse counseling; Z20.822 Contact with and (suspected) exposure to COVID-19; Z79.51 Long term (current) use of inhaled steroids; Z79.82 Long term (current) use of aspirin; Z79.899 Other long term (current) drug therapy
CPT/HCPCS: 0241U; 36415; 71045; 71250; 76775; 80048; 80076; 80307; 83605; 83690; 83880; 84484; 85025; 87040; 93005; 93306; 94640; 99285; J0456; J0696; J1644; J1940; J2060; Q9957

== ENCOUNTER → 2023-10-03 09:51 | Outpatient (BNV) | payer MEDICAID, SELFPAY | PROVIDERS: Emergency Provider Emergency Medicine Emergency Medical Services; Visit Provider Internal Medicine Cardiovascular Disease | DX: R00.0 Tachycardia, unspecified (principal); R94.31 Abnormal electrocardiogram [ECG] [EKG] | CPT/HCPCS: 93010 ==

== ENCOUNTER 2023-10-03 15:27 | Outpatient (BNV) | payer MEDICAID, SELFPAY | END 2023-10-04 07:00 | PROVIDERS: Admitting Provider Physician Assistant; Emergency Provider Emergency Medicine Emergency Medical Services; Visit Provider Internal Medicine Cardiovascular Disease | DX: I42.9 Cardiomyopathy, unspecified (principal); I50.9 Heart failure, unspecified | CPT/HCPCS: 93306 ==

== ENCOUNTER → 2023-10-03 15:27 | Outpatient (BNV) | payer MEDICAID, SELFPAY | PROVIDERS: Admitting Provider Physician Assistant; Emergency Provider Emergency Medicine Emergency Medical Services; Visit Provider Internal Medicine Cardiovascular Disease | DX: I42.9 Cardiomyopathy, unspecified (principal); I50.9 Heart failure, unspecified; F14.10 Cocaine abuse, uncomplicated | CPT/HCPCS: 99223; 99233 ==

== ENCOUNTER → 2023-10-03 15:27 | Outpatient (BNV) | payer MEDICAID, SELFPAY | PROVIDERS: Admitting Provider Physician Assistant; Emergency Provider Emergency Medicine Emergency Medical Services; Visit Provider Physician Assistant | DX: I42.9 Cardiomyopathy, unspecified (principal); I50.23 Acute on chronic systolic (congestive) heart failure; J96.01 Acute respiratory failure with hypoxia; F14.10 Cocaine abuse, uncomplicated | CPT/HCPCS: 99223; 99232; 99239 ==

== ENCOUNTER 2023-11-08 13:58 | Outpatient (REF) | payer MEDICAID, SELFPAY ==
[2023-11-08 16:06] LABS: B Type Natriuretic Peptide 91 pg/mL (<100)
[2023-11-08 16:34] LABS: Anion Gap 12 (12-20); Blood Urea Nitrogen 14 mg/dL (9-16); Calcium 9.3 mg/dL (8.4-10.2); Carbon Dioxide 26 mmol/L (22-29); Chloride 103 mmol/L (96-108); Estimated Glomerular Filt Rate > 60; Glucose Random 88 mg/dL (60-115); Potassium 4.1 mmol/L (3.3-5.1); Sodium 137 mmol/L (135-145)
== END 2023-11-08 13:59 | disposition home or self-care (01) ==
LOC: HO.LAB 13:58
PROVIDERS: Visit Provider Nurse Practitioner
DX: I42.9 Cardiomyopathy, unspecified (principal); I50.9 Heart failure, unspecified; Z79.899 Other long term (current) drug therapy
CPT/HCPCS: 36415; 80048; 83880; 99212

== ENCOUNTER 2023-11-08 13:58 | Outpatient (AMB) | payer MEDICAID, SELFPAY ==
--- NOTE | 2023-11-08 14:22 | MHC.OFFVIS ---
Intake Vital Signs 11/08/23 14:23 11/08/23 14:42 Height 6 ft 4 in Weight 341 lb 11.464 oz BMI 41.6 BP 130/60 115/56 L Blood Pressure Location Lt radial Position Sitting Pulse 101 H 96 Pulse Source Pulse Oximeter Pulse Oximeter Pulse Oximetry (%) 93 Intake [place] [facility] [place]: [facility] f/up some shortness of breath when walking long distance and going up the stairs. Kiln Puller Required: No Accompanied by: Self / Same As Patient Allergies No Known Allergies Allergy (Verified 05/26/23 09:26) Medication List - Last Reconciled 11/08/23 by Sayda Storey NP acetaminophen 650 mg (2 x 325 mg) PO Q6H PRN aspirin 81 mg PO DAILY carvedilol 3.125 mg See Protocol PO BID fluticasone propionate 50 mcg/actuation 1 spray intranasal DAILY furosemide 40 mg See Protocol PO DAILY losartan 25 mg See Protocol PO DAILY spironolactone 25 mg See Protocol PO DAILY HPI HPI Comments History of Present Illness Details 52-year-old male presents today for a follow-up after being at [facility] for 3 days. He reports he has been improving since discharge. He has a medical history of cardiomyopathy and substance use. He has been abstaining from any substance use since discharge. He denies chest pain, swelling but endorses shortness of breath on exertion. He states the swelling went away pretty quickly. Weight today is high which he feels is inaccurate as he feels he has definitely lost all the swelling and his clothes fit well. He is going to start weight himself daily at home and log it. EF on 10/06/23 was 20-25%. [facility] Medical History Cigarette smoker Cocaine abuse Spontaneous pneumothorax Hypertension Social History Household Members: Family Housing: House Do you presently have visiting nurse or other home services: No Patient Tobacco Use Status: Current everyday Tobacco user Tobacco use type: Cigarette Cigarette Packs Per Day: 0.5 Cigarettes Per Day: 10 Years Smoked: 35 Second Hand Smoke Exposure: No Substance Use Type: Crack/Cocaine and Marijuana service: No Review of Systems Const Reports chills, Reports fatigue, Reports fever(s), Reports frequent falls, Reports weakness, Reports weight gain and Reports weight loss ENT Reports dizziness Card Reports chest pain, Reports leg edema, Reports lightheadedness, Reports palpitations, Reports dyspnea and Reports dyspnea on exertion Resp Reports cough, Reports dyspnea and Reports dyspnea on exertion GI Reports hematochezia Musc Reports abnormal gait, Reports muscle weakness, Reports numbness, Reports radiating pain into limb and Reports tingling Neuro Reports abnormal gait, Reports dizziness, Reports frequent falls, Reports numbness, Reports tingling and Reports weakness Endo Reports fatigue and Reports palpitations Physical Exam Vital Signs: Last Vital Signs Pulse 96 11/08/23 14:42 BP 115/56 L 11/08/23 14:42 Pulse Ox 93 11/08/23 14:23 BMI result Body Mass Index 41.6 Assessment & Plan Assessment & Plan (1) Cardiomyopathy: Code(s): I42.9 - Cardiomyopathy, unspecified (2) Congestive heart failure: Code(s): I50.9 - Heart failure, unspecified Plan Obtain lab work to assess electrolytes and BNP. Limited echo in one month to assess EF. Will return [facility] paperwork as soon as possible. Discussed in detail a heart healthy diet, importance of medication compliance, daily weights, and continued abstinence from any substances. Pt agrees to plan. Will call with results once available. Orders: Orders CA echo limited 1 Month I42.9 - Cardiomyopathy, unspecified, I50.9 - Heart failure, unspecified Basic Metabolic Panel 11/08/23 I42.9 - Cardiomyopathy, unspecified, I50.9 - Heart failure, unspecified B Type Natriuretic Peptide 11/08/23 I42.9 - Cardiomyopathy, unspecified, I50.9 - Heart failure, unspecified Coding Level of Care Code Est Pt Level 4 (03229) Diagnoses Cardiomyopathy I42.9 Congestive heart failure I50.9
[2023-11-08 14:23] VITALS: BP 130/60; PULSE 101; O2SAT 93; BMI 41.6
[2023-11-08 14:42] VITALS: BP 115/56; PULSE 96
== END 2023-11-08 15:07 | disposition home or self-care (01) ==
PROVIDERS: Visit Provider Nurse Practitioner
DX: I42.9 Cardiomyopathy, unspecified (principal); I50.9 Heart failure, unspecified
CPT/HCPCS: 99214

== ENCOUNTER 2023-11-21 13:43 | Outpatient (AMB) | payer MEDICAID, SELFPAY ==
--- NOTE | 2023-11-21 14:05 | MHC.OFFVIS ---
Intake Intake Visit Reasons: ER follow up/renal lesion Intake Note: NEW Patient presents today to established treatment for: Renal Lesion Meds- None Allergies to Antibiotic- No Known Allergies Blood Thinner- Aspirin Private Eye Required: No Accompanied by: Father Allergies No Known Allergies Allergy (Verified 11/21/23 14:06) Medication List - Last Reconciled 11/21/23 by Adalid Troncoso MD acetaminophen 650 mg (2 x 325 mg) PO Q6H PRN aspirin 81 mg PO DAILY carvedilol 3.125 mg See Protocol PO BID fluticasone propionate 50 mcg/actuation 1 spray intranasal DAILY furosemide 40 mg See Protocol PO DAILY losartan 25 mg See Protocol PO DAILY spironolactone 25 mg See Protocol PO DAILY HPI HPI Comments History of Present Illness Details Sandip is a pleasant male. He is seen for the following urologic conditions - complex renal cyst Complex renal cyst found during evaluation of cardiomyopathy Imaging - CT - The right upper renal pole lesion reported on CT scan of chest could not be demonstrated on ultrasound examination. Further evaluation with pre and postcontrast MRI of the abdomen is therefore recommended. Two month MRI [facility] Medical History Cigarette smoker Cocaine abuse Spontaneous pneumothorax Hypertension Surgical History History of ear surgery Social History Household Members: Family Housing: House Do you presently have visiting nurse or other home services: No Patient Tobacco Use Status: Current everyday Tobacco user Tobacco use type: Cigarette Cigarette Packs Per Day: 0.5 Cigarettes Per Day: 10 Years Smoked: 35 Second Hand Smoke Exposure: No Substance Use Type: Crack/Cocaine and Marijuana service: No Review of Systems Const Denies chills and Denies fever(s) Card Reports no additional complaints and Denies syncope Resp Denies cough GI Denies abdominal pain and Denies heartburn Reports as per HPI and Denies change in libido Neuro Denies syncope Psych Denies change in libido Endo Denies change in libido Physical Exam Const General: cooperative, healthy appearing, comfortable and no acute distress Orientation/consciousness: patient oriented x3 HEENT Face and sinus: Yes normal facial exam Mouth: moist mucous membranes Neck Neck: Yes normal visual inspection, Yes full ROM and Yes trachea midline Chest Chest palpation & inspection: normal inspection of the chest Resp Effort & Inspection: normal respiratory effort, able to speak in complete sentences and no respiratory distress GI Inspection: Yes normal to inspection Back/Spine/Pelvis Cervical Spine: normal cervical lordosis Thoracic/Lumbar Spine: thoracic and lumbar spine normal to inspection Skin General skin exam: no rashes or lesions noted Neuro General: patient oriented x3, gait normal, tone normal and moves all extremities Extrem General: Yes normal to inspection and Yes capillary refill normal Results AMB Urinalysis, Automated UA Leukoctes 125 Cesar/uL Last Edit by Yoshi Shepherd [facility] on 11/21/23 14:15 2+ Yoshi Shepherd 11/21/23 14:15 UA Nitrite Negative Last Edit by Yoshi Shepherd [facility] on 11/21/23 14:15 UA Urobilinogen 0.2 mg/dL Last Edit by Yoshi Shepherd [facility] on 11/21/23 14:15 UA Protein 15 mg/dL Last Edit by Yoshi Shepherd [facility] on 11/21/23 14:15 UA pH 6.0 Last Edit by Yoshi Shepherd [facility] on 11/21/23 14:15 UA Blood 15 Adan/uL Last Edit by Yoshi Shepherd [facility] on 11/21/23 14:15 UA Specific [place] 1.020 Last Edit by Yoshi Shepherd [facility] on 11/21/23 14:15 UA Ketone Negative Last Edit by Yoshi Shepherd [facility] on 11/21/23 14:15 UA Bilirubin 0 mg/dL Last Edit by Yoshi Shepherd [facility] on 11/21/23 14:15 UA Glucose 0 mg/dL Last Edit by Yoshi Shepherd [facility] on 11/21/23 14:15 Results Reviewed Results Reviewed: Laboratory Last Values Urine pH (Auto) 6.0 11/21/23 14:14 Specific [place] (Auto) 1.020 11/21/23 14:14 Urine Protein (Auto) 15 mg/dL 11/21/23 14:14 Glucose (UA)(Auto) 0 mg/dL 11/21/23 14:14 Urine Ketones (Auto) Negative 11/21/23 14:14 Urine Blood (Auto) 15 Adan/uL 11/21/23 14:14 Urine Nitrite (Auto) Negative 11/21/23 14:14 Urine Bilirubin (Auto) 0 mg/dL 11/21/23 14:14 Urine Urobilinogen (Auto) 0.2 mg/dL 11/21/23 14:14 Leukocyte Esterase (Auto) 125 Cesar/uL 11/21/23 14:14 Assessment & Plan Assessment & Plan (1) Renal cyst: Code(s): N28.1 - Cyst of kidney, acquired Plan Two month follow-up MRI Orders: Orders AMB Urinalysis Automated 11/21/23 Z13.9 - Encounter for screening, unspecified MR kidney wo/w con 11/21/23 N28.1 - Cyst of kidney, acquired Patient Instructions: Imaging studies, laboratory and physical exam results were discussed and reviewed in detail. No major barriers to patient understanding were identified. An opportunity to ask questions regarding the treatment plan was provided. All questions were answered. The patient expressed understanding and agreement with the above treatment plan. The patient is aware they should contact our office by phone for worsening of their current condition or the appearance of new urologic symptoms. Compliance is encouraged with any medications and followup testing that is ordered. It is a privilege to participate in the urologic care of your patient. If you have any questions or concerns regarding treatment for the above conditions, or other urologic issues, please do not hesitate to contact me. The office telephone contact is [phone]. This note is constructed using voice recognition software. While every effort has been made to ensure accuracy earth science professor errors may have been included. Yours sincerely, Dr Adalid Troncoso MD, [facility] - Urology Providers of Expert, Compassionate Care for the Genitourinary System Coding Level of Care Code New Pt Level 4 (51961) Diagnoses Renal cyst N28.1
== END 2023-11-21 14:45 | disposition home or self-care (01) ==
PROVIDERS: Visit Provider Urology
DX: N28.1 Cyst of kidney, acquired (principal)
CPT/HCPCS: 99203

== ENCOUNTER → 2023-11-21 13:43 | Outpatient (BNVA) | payer MEDICAID, SELFPAY | PROVIDERS: Visit Provider Urology | DX: N28.1 Cyst of kidney, acquired (principal) | CPT/HCPCS: 81003; 99202 ==

== ENCOUNTER 2024-01-24 13:45 | Outpatient (AMB) | payer MEDICAID, SELFPAY ==
[2024-01-24 13:55] VITALS: BP 140/80; PULSE 93; BMI 44.2
--- NOTE | 2024-01-24 13:55 | A.OFFVIS_ITS ---
Intake Vital Signs 01/24/24 13:55 Height 6 ft 4 in Weight 362 lb 14.094 oz BMI 44.2 BP 140/80 H Blood Pressure Location Lt brachial Position Sitting Pulse 93 Intake Visit Reasons: 3 mth fu (echo not approved by ins) Intake Note: pt its here for 3 mht f/up/ pt states that he have some shortness of breath everyday. Meat Boner Required: No Accompanied by: Self / Same As Patient Allergies No Known Allergies Allergy (Verified 11/21/23 14:06) Medication List - Last Reconciled 01/24/24 by Julio Hoffman MD acetaminophen 650 mg (2 x 325 mg) PO Q6H PRN aspirin 81 mg PO DAILY carvedilol 3.125 mg See Protocol PO BID 90 days fluticasone propionate 50 mcg/actuation 1 spray intranasal DAILY furosemide 40 mg See Protocol PO DAILY losartan 25 mg See Protocol PO DAILY spironolactone 25 mg See Protocol PO DAILY HPI HPI Comments History of Present Illness Details [age] gentleman who is here for follow-up. He was in the hospital for congestive heart failure. He had EF of 20 25%. He was using cocaine and alcohol. He was started on guideline directed medical therapy and was discharged home. He was seen in the office and was feeling better and was compliant with medications. He returns now and has some improvement in symptoms. He has stop smoking and has been gaining weight. His blood pressure is elevated. He still has mild peripheral edema. We were trying to arrange an echocardiogram on him but his insurance only covering the echocardiogram if it is done at [facility]. He said he is scheduled to have it done next week. [facility] Medical History Cigarette smoker Cocaine abuse Spontaneous pneumothorax Hypertension Surgical History History of ear surgery Social History Household Members: Family Housing: House Do you presently have visiting nurse or other home services: No Patient Tobacco Use Status: Current everyday Tobacco user Tobacco use type: Cigarette Cigarette Packs Per Day: 0.5 Cigarettes Per Day: 10 Years Smoked: 35 Second Hand Smoke Exposure: No Substance Use Type: Crack/Cocaine and Marijuana service: No Review of Systems Const Denies chills, Denies fatigue, Denies fever(s), Denies frequent falls, Denies weakness, Denies weight gain and Denies weight loss ENT Denies dizziness Card Denies chest pain, Denies leg edema, Denies lightheadedness, Denies palpitations, Denies dyspnea and Denies dyspnea on exertion Resp Denies cough, Denies dyspnea and Denies dyspnea on exertion GI Denies hematochezia Musc Denies abnormal gait, Denies muscle weakness, Denies numbness, Denies radiating pain into limb and Denies tingling Neuro Denies abnormal gait, Denies dizziness, Denies frequent falls, Denies numbness, Denies tingling and Denies weakness Endo Denies fatigue and Denies palpitations Physical Exam Vital Signs: Last Vital Signs Pulse 93 01/24/24 13:55 BP 140/80 H 01/24/24 13:55 BMI result Body Mass Index 44.2 GENERAL APPEARANCE: Morbidly obese. NECK: no carotid bruit, no jugular venous distention. SKIN: no suspicious lesions, warm and dry. HEART: no murmurs, regular rate and rhythm. LUNGS: Clear to auscultation bilaterally. ABDOMEN: soft, nontender. EXTREMITIES: mild edema. PERIPHERAL PULSES: equal. NEUROLOGIC: No gross deficits, AAO X 3 Office Procedures EKG Details: Sinus rhythm 83 beats per minute, normal axis, lateral T-wave inversions, QTC 437 milliseconds. [id number], Complete Assessment & Plan Assessment & Plan (1) Cardiomyopathy: Code(s): I42.9 - Cardiomyopathy, unspecified Plan [age] gentleman is here for follow-up. He was seen in the hospital for congestive heart failure and new diagnosis of cardiomyopathy with EF 20 25% in the setting of alcohol and cocaine use. He has been abstinent of alcohol and cocaine. He has stop smoking 2. He is taking medication regularly. Blood pressure is elevated and I am increasing the losartan to 50 mg daily. We may have to titrate to 50 b.i.d. depending on his blood pressure next time. Increasing Lasix to 40 mg BID. He has stopped smoking and has gained more weight. Control blood pressure with losartan. We will review his echocardiogram which is being done in 1 week at [facility]. If EF does not recover then will need ischemic evaluation. f/u in couple of months. Thank you for allowing me to participate in the care of your patient. Please feel free to contact me if you have any questions. Orders: Orders Basic Metabolic Panel Today I42.9 - Cardiomyopathy, unspecified Prothrombin Time INR Today I42.9 - Cardiomyopathy, unspecified Complete Blood Count no Diff Today I42.9 - Cardiomyopathy, unspecified B Type Natriuretic Peptide Today I42.9 - Cardiomyopathy, unspecified Medications: New furosemide 40 mg PO BID 180 tabs 3RF losartan 50 mg PO DAILY 90 tabs 4RF Discontinued losartan Discontinued Reason: None 25 mg See Protocol PO DAILY 90 tabs 3RF furosemide Discontinued Reason: None 40 mg See Protocol PO DAILY 90 tabs 3RF Coding Level of Care Code Est Pt Level 4 (51194) Diagnoses Cardiomyopathy I42.9 CPT Codes EKG - CPT: 02089-Kmcpbraheddvwgjxk, Complete ([id number])
== END 2024-01-24 14:33 | disposition home or self-care (01) ==
PROVIDERS: Visit Provider Internal Medicine Cardiovascular Disease
DX: I42.9 Cardiomyopathy, unspecified (principal)
CPT/HCPCS: 93010; 99214

== ENCOUNTER → 2024-01-24 13:45 | Outpatient (BNVA) | payer MEDICAID, SELFPAY | PROVIDERS: Visit Provider Internal Medicine Cardiovascular Disease | DX: I50.9 Heart failure, unspecified (principal); I42.9 Cardiomyopathy, unspecified; F10.90 Alcohol use, unspecified, uncomplicated; F14.90 Cocaine use, unspecified, uncomplicated | CPT/HCPCS: 93005; 99212 ==

== ENCOUNTER 2024-02-28 08:47 | Outpatient (AMB) | payer MEDICAID, SELFPAY ==
--- NOTE | 2024-02-28 08:47 | A.OFFVIS_ITS ---
Intake Visit Reasons: Follow Up(Cant Do MRI) Intake Note: Patient is Present for Telephone Follow Up Urology Med: None Antibiotic Allergy:None Blood Thinner: Aspirin Allergies No Known Allergies Allergy (Verified 02/28/24 08:48) HPI Comments Details: Sandip is a pleasant male. He He is seen for the following urologic conditions - complex renal cyst Telemedicine Evaluation 15 min Consultation [employer] Jesús Video attempted Unable to get MRI - can't fit in machine Get CT in 6 months Complex renal cyst found during evaluation of cardiomyopathy Imaging - CT - The right upper renal pole lesion reported on CT scan of chest could not be demonstrated on ultrasound examination. Further evaluation with pre and postcontrast MRI of the abdomen is therefore recommended. [facility] Medical History Cigarette smoker Cocaine abuse Spontaneous pneumothorax Hypertension Surgical History History of ear surgery Social History Household Members: Family Housing: House Do you presently have visiting nurse or other home services: No Patient Tobacco Use Status: Current everyday Tobacco user Tobacco use type: Cigarette Cigarette Packs Per Day: 0.5 Cigarettes Per Day: 10 Years Smoked: 35 Second Hand Smoke Exposure: No Substance Use Type: Crack/Cocaine and Marijuana service: No Review of Systems Const All systems reviewed & are unremarkable except as noted in HPI and below Reports no additional complaints Resp Reports no additional complaints GI Reports no additional complaints Reports as per HPI Musc Reports no additional complaints Physical Exam Telemedicine evaluation Appropriate responses Regular breathing rate and rhythm HEENT Head: Yes normal to inspection Ears: hearing grossly normal bilaterally Eyes General: appearance normal, both eyes and all related structures Neck Neck: Yes normal visual inspection Chest Chest palpation & inspection: normal inspection of the chest Resp Effort & Inspection: normal respiratory effort and able to speak in complete sentences Telehealth Telehealth Telehealth Platform: Snapshot Interactive Location of provider rendering services: practice address Location of patient: address on file Patient Identification confirmed using: Name, : Yes Telehealth method: video Patient verbally consented to treatment: Yes Patient verbally consented to billing insurance company: Yes Patient informed of any privacy concerns related to visit: Yes Minutes spent on Phone/Video with Pt.: 15 Assessment & Plan Assessment & Plan (1) Renal cyst: Code(s): N28.1 - Cyst of kidney, acquired Category: Medical Plan Six-month follow-up Orders: Orders CT abdomen wo/w IV con 6 Months N28.1 - Cyst of kidney, acquired Patient Instructions: Imaging studies, laboratory and physical exam results were discussed and reviewed in detail. No major barriers to patient understanding were identified. An opportunity to ask questions regarding the treatment plan was provided. All questions were answered. The patient expressed understanding and agreement with the above treatment plan. The patient is aware they should contact our office by phone for worsening of their current condition or the appearance of new urologic symptoms. Compliance is encouraged with any medications and followup testing that is ordered. It is a privilege to participate in the urologic care of your patient. If you have any questions or concerns regarding treatment for the above conditions, or other urologic issues, please do not hesitate to contact me. The office telephone contact is [phone]. This note is constructed using voice recognition software. While every effort has been made to ensure accuracy rehab specialist errors may have been included. Yours sincerely, Dr Adalid Troncoso MD, [facility] - Urology Providers of Expert, Compassionate Care for the Genitourinary System Coding Level of Care Code Tele Est Pt Level 3 (23243) Diagnoses Renal cyst N28.1
== END 2024-02-28 09:20 | disposition home or self-care (01) ==
LOC: HO.HUSH 08:47
PROVIDERS: Visit Provider Urology
DX: N28.1 Cyst of kidney, acquired (principal)
CPT/HCPCS: 99213

== ENCOUNTER → 2024-02-28 08:47 | Outpatient (BNVA) | payer MEDICAID, SELFPAY | PROVIDERS: Visit Provider Urology ==

== ENCOUNTER 2024-06-19 13:16 | Outpatient (AMB) | payer MEDICAID, SELFPAY ==
[2024-06-19 13:23] VITALS: BP 136/64; PULSE 93; BMI 44.5
--- NOTE | 2024-06-19 13:23 | MHC.OFFVIS ---
Vital Signs 06/19/24 13:23 Height 6 ft 4 in Weight 365 lb 15.477 oz BMI 44.5 BP 136/64 Blood Pressure Location Lt radial Position Sitting Pulse 93 Pulse Source Pulse Oximeter Intake Visit Reasons: sob n/s f/up Replanter Required: No Accompanied by: Self / Same As Patient Allergies No Known Allergies Allergy (Verified 02/28/24 08:48) Medication List - Last Reconciled 06/19/24 by Julio Hoffman MD acetaminophen 650 mg (2 x 325 mg) PO Q6H PRN aspirin 81 mg PO DAILY carvedilol 3.125 mg See Protocol PO BID 90 days fluticasone propionate 50 mcg/actuation 1 spray intranasal DAILY furosemide 40 mg PO BID losartan 50 mg PO DAILY spironolactone 25 mg See Protocol PO DAILY HPI Comments Details: 53-year-old gentleman who is here for follow-up. He was in the hospital for congestive heart failure. He had EF of 20 25%. He was using cocaine and alcohol. He was started on guideline directed medical therapy and was discharged home. He was seen in the office and was feeling better and was compliant with medications. He returns now and has some improvement in symptoms. He has stopped smoking and has been gaining weight. His blood pressure is elevated. He still has mild peripheral edema. We were trying to arrange an echocardiogram on him but his insurance only covering the echocardiogram if it is done at [facility]. He said he is scheduled to have it done next week. 06/19/2024: He returns for follow-up. He had echocardiography performed at [facility] where ejection fraction was read as 30-40% with apical akinesis. He has stopped drinking alcohol and has not been using cocaine. He has stopped smoking 2. He is saying that he has gained approximately 100 lb since September. He is seeing a bariatric surgeon at [facility]. Blood pressure is better controlled. He continues to be morbidly obese and has peripheral edema. He is denying any significant chest discomfort. [facility] Medical History Cigarette smoker Cocaine abuse Spontaneous pneumothorax Hypertension Surgical History History of ear surgery Social History Household Members: Family Housing: House Do you presently have visiting nurse or other home services: No Patient Tobacco Use Status: Current everyday Tobacco user Tobacco use type: Cigarette Cigarette Packs Per Day: 0.5 Cigarettes Per Day: 10 Years Smoked: 35 Second Hand Smoke Exposure: No Substance Use Type: Crack/Cocaine and Marijuana service: No Review of Systems Const Denies chills, Denies fatigue, Denies fever(s), Denies frequent falls, Denies weakness, Denies weight gain and Denies weight loss ENT Denies dizziness Card Denies chest pain, Denies leg edema, Denies lightheadedness, Denies palpitations, Denies dyspnea and Denies dyspnea on exertion Resp Denies cough, Denies dyspnea and Denies dyspnea on exertion GI Denies hematochezia Musc Denies abnormal gait, Denies muscle weakness, Denies numbness, Denies radiating pain into limb and Denies tingling Neuro Denies abnormal gait, Denies dizziness, Denies frequent falls, Denies numbness, Denies tingling and Denies weakness Endo Denies fatigue and Denies palpitations Physical Exam Vital Signs: Last Vital Signs Pulse 93 06/19/24 13:23 BP 136/64 06/19/24 13:23 BMI result Body Mass Index 44.5 GENERAL APPEARANCE: Morbidly obese. NECK: no carotid bruit, no jugular venous distention. SKIN: no suspicious lesions, warm and dry. HEART: no murmurs, regular rate and rhythm. LUNGS: Clear to auscultation bilaterally. ABDOMEN: soft, nontender. EXTREMITIES: mild edema. PERIPHERAL PULSES: equal. NEUROLOGIC: No gross deficits, AAO X 3 Office Procedures EKG Details: Sinus rhythm 93 beats per minute, normal axis, T-wave inversions lateral leads, QTC 469 milliseconds. [id number], Complete Assessment & Plan Assessment & Plan (1) Cardiomyopathy: Code(s): I42.9 - Cardiomyopathy, unspecified Category: Medical Plan [age] gentleman here for follow-up. He was seen in the hospital when he presented with de efra congestive heart failure with cardiomyopathy and severe LV dysfunction. He was diuresed and started on guideline directed medical therapy. He was doing cocaine and drinking alcohol and smoking. He has stopped all these habits and reports that he has not been using them for few months now. Blood pressure control is good. He is on losartan, spironolactone, Lasix 40 mg b.i.d. and carvedilol 3.125 mg twice a day. I am adding Farxiga and I am sending 30 tablets for him. If he can afford it then he will fill the script otherwise he will call and let us know. His repeat echocardiography is showing wall motion abnormalities in the apex as per report from [facility] with EF 30-40%. I have discussed with him that we need to do ischemic evaluation and recommend that he get diagnostic angiogram. He is agreeable and we will arrange this for him. He will have some basic blood workup before that. Thank you for allowing me to participate in the care of your patient. Please feel free to contact me if you have any questions. Orders: Orders Complete Blood Count no Diff Today I42.9 - Cardiomyopathy, unspecified Prothrombin Time INR Today I42.9 - Cardiomyopathy, unspecified Basic Metabolic Panel Today I42.9 - Cardiomyopathy, unspecified B Type Natriuretic Peptide Today I42.9 - Cardiomyopathy, unspecified Liver Panel Today I42.9 - Cardiomyopathy, unspecified Cardiac Cath LT w PCI Today I42.9 - Cardiomyopathy, unspecified Medications: New dapagliflozin propanediol (Farxiga) 5 mg PO DAILY 30 tabs 0RF I42.9 - Cardiomyopathy, unspecified Coding Level of Care Code Est Pt Level 4 (51635) Diagnoses Cardiomyopathy I42.9 CPT Codes EKG - CPT: 02872-[id number], Complete ([id number])
== END 2024-06-19 14:06 | disposition home or self-care (01) ==
PROVIDERS: PCP Internal Medicine; Visit Provider Internal Medicine Cardiovascular Disease
DX: I42.9 Cardiomyopathy, unspecified (principal)
CPT/HCPCS: 93010; 99214

== ENCOUNTER → 2024-06-19 13:16 | Outpatient (BNVA) | payer MEDICAID, SELFPAY | PROVIDERS: Visit Provider Internal Medicine Cardiovascular Disease | DX: I42.9 Cardiomyopathy, unspecified (principal); I50.9 Heart failure, unspecified | CPT/HCPCS: 93005; 99212 ==

== ENCOUNTER 2024-07-25 14:23 | Outpatient (REF) | payer MEDICAID, SELFPAY ==
[2024-07-25 15:09] LABS: Hematocrit 44.3 % (42.0-52.0); Hemoglobin 14.4 g/dl (14.0-18.0); Mean Corpuscular HGB Conc 32.5 g/dl (31.0-36.0); Mean Corpuscular Hemoglobin 29.9 pg (27.0-33.0); Mean Corpuscular Volume 92.1 fL (80.0-98.0); Mean Platelet Volume 9.7 fL (9.4-12.4); Platelet Count 324 X10*3/uL (160-400); Red Blood Count 4.81 X10*6/uL (4.60-5.80); Red Cell Distribution Width 13.7 % (11.0-16.0); White Blood Count 10.1 X10*3/uL (4.8-10.8)
[2024-07-25 15:11] LABS: Hematocrit 44.1 % (42.0-52.0); Hemoglobin 14.5 g/dl (14.0-18.0); Mean Corpuscular HGB Conc 32.9 g/dl (31.0-36.0); Mean Corpuscular Hemoglobin 30.4 pg (27.0-33.0); Mean Corpuscular Volume 92.5 fL (80.0-98.0); Mean Platelet Volume 9.3 fL (9.4-12.4); Platelet Count 297 X10*3/uL (160-400); Red Blood Count 4.77 X10*6/uL (4.60-5.80); Red Cell Distribution Width 13.7 % (11.0-16.0); White Blood Count 9.9 X10*3/uL (4.8-10.8)
[2024-07-25 15:22] LABS: Prothrombin Time 11.7 SEC (10.9-12.4)
[2024-07-25 15:29] LABS: B Type Natriuretic Peptide < 10 pg/mL (<100)
[2024-07-25 15:39] LABS: Alanine Aminotransferase 30 U/L (0-40); Albumin Level 4.3 g/dL (3.5-5.0); Alkaline Phosphatase 68 U/L (39-117); Anion Gap 15 (12-20); Aspartate Amino Transferase 22 U/L (5-37); Bilirubin Direct 0.1 mg/dL (0.0-0.5); Bilirubin Total 0.4 mg/dL (0.0-1.0); Blood Urea Nitrogen 16 mg/dL (9-16); Calcium 10.1 mg/dL (8.4-10.2); Carbon Dioxide 29 mmol/L (22-29); Chloride 101 mmol/L (96-108); Estimated Glomerular Filt Rate > 60; Glucose Random 120 mg/dL (60-115); Potassium 4.1 mmol/L (3.3-5.1); Sodium 141 mmol/L (135-145); Total Protein 8.3 g/dL (6.5-8.0)
[2024-07-25 15:42] LABS: Anion Gap 14 (12-20); Blood Urea Nitrogen 16 mg/dL (9-16); Carbon Dioxide 27 mmol/L (22-29); Chloride 102 mmol/L (96-108); Estimated Glomerular Filt Rate > 60; Glucose Random 123 mg/dL (60-115); Sodium 139 mmol/L (135-145)
[2024-07-25 15:44] LABS: B Type Natriuretic Peptide < 10 pg/mL (<100)
== END 2024-07-25 14:24 | disposition home or self-care (01) ==
LOC: HO.LAB 14:23
PROVIDERS: Urology; PCP Internal Medicine; Visit Provider Internal Medicine Cardiovascular Disease
DX: I42.9 Cardiomyopathy, unspecified (principal)
CPT/HCPCS: 36415; 80048; 80076; 83880; 85027; 85610

== ENCOUNTER → 2024-07-30 23:59 | Outpatient (BNV) | payer MEDICAID, SELFPAY | PROVIDERS: PCP Internal Medicine; Visit Provider Internal Medicine Cardiovascular Disease | DX: I50.20 Unspecified systolic (congestive) heart failure (principal) | CPT/HCPCS: 93458; 99152 ==

== ENCOUNTER 2024-08-19 12:49 | Outpatient (AMB) | payer MEDICAID, SELFPAY ==
--- NOTE | 2024-08-19 12:52 | MHC.OFFVIS ---
Vital Signs 08/19/24 12:53 Height 6 ft 4 in Weight 359 lb 12.71 oz BMI 43.8 BP 114/72 Blood Pressure Location Lt brachial Position Sitting Pulse 101 H Pulse Source Pulse Oximeter Intake Visit Reasons: 2 wk s/p cath Finance Consultant Required: No Allergies No Known Allergies Allergy (Verified 08/19/24 12:55) Medication List - Last Reconciled 08/19/24 by Carmen Dawkins NP-C acetaminophen 650 mg (2 x 325 mg) PO Q6H PRN aspirin 81 mg PO DAILY carvedilol 6.25 mg PO BID dapagliflozin propanediol (Farxiga) 5 mg PO DAILY fluticasone propionate 50 mcg/actuation 1 spray intranasal DAILY furosemide 40 mg PO BID losartan 100 mg PO DAILY semaglutide (weight loss) 0.25 mg subcut QWEEK spironolactone 25 mg See Protocol PO DAILY HPI HPI 2 wk s/p cath: Details: Sandip is a 53-year-old male with past medical history cocaine and alcohol use, morbid obesity, nonischemic cardiomyopathy who recently underwent a cardiac catheterization and now presents for follow-up. Today he reports that he has been doing well since his last visit in May. He denies chest discomfort at rest or with activity. No concerning shortness of breath with his normal ADLs. No PND, orthopnea. He does get some leg edema however today they look good. No heart palpitations, lightheadedness, presyncope, falls. He is requesting a note to go back to work part-time light duty. He previously stopped all cocaine, alcohol and smoking use. Since that time he has gained significant weight. He is following with a bariatric program. He reports compliance with his medications. [facility] Medical History (Updated 08/19/24 @ 14:18 by Carmen Dawkins NP-C) Cigarette smoker Cocaine abuse Spontaneous pneumothorax Hypertension Surgical History (Updated 08/19/24 @ 14:19 by Carmen Dawkins NP-C) History of ear surgery Social History Household Members: Family Housing: House Do you presently have visiting nurse or other home services: No Patient Tobacco Use Status: Current everyday Tobacco user Tobacco use type: Cigarette Cigarette Packs Per Day: 0.5 Cigarettes Per Day: 10 Years Smoked: 35 Second Hand Smoke Exposure: No Substance Use Type: Crack/Cocaine and Marijuana service: No Review of Systems Const All systems reviewed & are unremarkable except as noted in HPI and below ENT Denies dizziness Card Denies chest pain, Denies chest pain at rest, Denies chest pain with activity, Denies rapid heart rate, Denies pedal edema, Denies edema, Denies leg edema, Denies lightheadedness, Denies palpitations, Denies dyspnea, Reports dyspnea on exertion (with exertion) and Denies orthopnea Resp Denies cough, Denies dyspnea and Reports dyspnea on exertion (with exertion) GI Denies hematochezia and Denies change in stool character Musc Denies abnormal gait, Denies limited range of motion, Denies muscle cramps, Denies muscle weakness, Denies numbness, Denies radiating pain into limb, Denies stiffness and Denies tingling Neuro Denies abnormal gait, Denies dizziness, Denies numbness and Denies tingling Endo Denies palpitations Physical Exam Vital Signs: Last Vital Signs Pulse 101 H 08/19/24 12:53 BP 114/72 08/19/24 12:53 BMI result Body Mass Index 43.8 Const Other: morbidly obese General: cooperative, comfortable and no acute distress Orientation/consciousness: patient oriented x3 Neck Neck: Yes normal visual inspection and Yes no JVD Resp Effort & Inspection: normal respiratory effort Auscultation: clear to auscultation bilaterally, no rales, no rhonchi and no wheezes Cardio Jugular venous distension: no JVD Rate: regular rate Rhythm: regular rhythm Heart sounds: S1 normal heart sound present, S2 normal heart sound present, no murmurs and no rubs Neuro General: patient oriented x3 Extrem General: Yes normal to inspection and No no pedal edema Psych Appearance: grossly normal Mental Status: mental status grossly normal Speech and movement: Normal speech and movement present Assessment & Plan Assessment & Plan (1) Cardiomyopathy: Code(s): I42.9 - Cardiomyopathy, unspecified Category: Medical Plan: [facility] admission for shortness of breath, Congestive heart failure 09/2023. Echocardiogram showed EF 20-25%. He was diuresed and put on appropriate med management for acute systolic heart failure. A follow-up echocardiogram had been done at [facility] on 04/18/2024 showing EF 30-40%, apex akinetic. He did not have anginal sounding symptoms. He underwent cardiac catheterization on 07/30/2024 showing only RCA minimal irregularities. His right radial catheterization site is well healed. Today he reports he is currently feeling well. He is requesting return to work part-time, light duty. He says his employer can accommodate any restrictions. Discuss this with him and will provide him with a note. Diagnosis of nonischemic cardiomyopathy reviewed with him. He is still at risk for systolic heart failure. Signs and symptoms of heart failure discussed. Continue on Lasix, carvedilol, losartan, Farxiga, Aldactone. Considered changing him over to Entresto however blood pressure is on the lower side of normal. He is feeling well so will continue current med management. Will check a limited echo prior to his next visit to reassess EF. Cardiology follow-up in 3-4 months, sooner if needed. (2) S/P cardiac cath: Comment: 07/30/2024, left main, lad, left circumflex normal, RCA minimal irregularities Code(s): Z98.890 - Other specified postprocedural states Category: Surgical Plan: Right radial catheterization site well healed. (3) Congestive heart failure: Code(s): I50.9 - Heart failure, unspecified Category: Medical Plan: As above, stable at present. (4) Hypertension: Code(s): I10 - Essential (primary) hypertension Category: Medical Plan: Well controlled at present. No med changes made. Plan Time spent on chart review, documentation, interviewed assessment Orders: Orders CA Echo Limited 3 Months I42.9 - Cardiomyopathy, unspecified Coding Level of Care Code Est Pt Level 4 (29812) Complex EM visit Add On G2211 Diagnoses Cardiomyopathy I42.9 S/P cardiac cath Z98.890 Congestive heart failure I50.9 Hypertension I10 Time Spent (min) 30
[2024-08-19 12:53] VITALS: BP 114/72; PULSE 101; BMI 43.8
== END 2024-08-19 13:17 | disposition home or self-care (01) ==
LOC: HO.HCS 12:50
PROVIDERS: PCP Internal Medicine; Visit Provider Nurse Practitioner Family
DX: I42.9 Cardiomyopathy, unspecified (principal); Z98.890 Other specified postprocedural states; I50.9 Heart failure, unspecified; I10 Essential (primary) hypertension
CPT/HCPCS: 99214; G2211

== ENCOUNTER → 2024-08-19 12:49 | Outpatient (BNVA) | payer MEDICAID, SELFPAY | PROVIDERS: PCP Internal Medicine; Visit Provider Nurse Practitioner Family | DX: I42.8 Other cardiomyopathies (principal); I11.0 Hypertensive heart disease with heart failure; I50.9 Heart failure, unspecified; E66.01 Morbid (severe) obesity due to excess calories; Z98.890 Other specified postprocedural states; Z68.43 Body mass index [BMI] 50.0-59.9, adult | CPT/HCPCS: 99212 ==

== ENCOUNTER 2024-08-30 13:54 | Outpatient (AMB) | payer MEDICAID, SELFPAY ==
--- NOTE | 2024-08-30 13:56 | A.OFFVIS_ITS ---
Intake Visit Reasons: 6m/CT(08/26) Intake Note: Patient is present for Follow Up Patient was unable to do MRI last time due to machine, Patient had CT Scan appt on 08/[address] Scan Patient states that he was unaware of his CT Scan appt on 08/26 Urology Med: None Antibiotic Allergy:None Blood Thinner: Aspirin Gm/Svp Global Publisher Business Required: No Accompanied by: Self / Same As Patient Allergies No Known Allergies Allergy (Verified 08/30/24 13:58) HPI Comments Details: Sandip is a pleasant male. He He is seen for the following urologic conditions - complex renal cyst Did not receive call for CT scan Unable to fit in the MRI machine Creatinine stable at 1.[address] Complex renal cyst found during evaluation of cardiomyopathy Imaging - CT - The right upper renal pole lesion reported on CT scan of chest could not be demonstrated on ultrasound examination. Further evaluation with pre and postcontrast MRI of the abdomen is therefore recommended. [facility] Medical History Cigarette smoker Cocaine abuse Spontaneous pneumothorax Hypertension Surgical History History of ear surgery Social History Household Members: Family Housing: House Do you presently have visiting nurse or other home services: No Patient Tobacco Use Status: Current everyday Tobacco user Tobacco use type: Cigarette Cigarette Packs Per Day: 0.5 Cigarettes Per Day: 10 Years Smoked: 35 Second Hand Smoke Exposure: No Substance Use Type: Crack/Cocaine and Marijuana service: No Review of Systems Const Denies chills and Denies fever(s) Card Reports no additional complaints and Denies syncope Resp Denies cough GI Denies abdominal pain and Denies heartburn Reports as per HPI and Denies change in libido Neuro Denies syncope Psych Denies change in libido Endo Denies change in libido Physical Exam Const General: cooperative, healthy appearing, comfortable and no acute distress Orientation/consciousness: patient oriented x3 HEENT Face and sinus: Yes normal facial exam Mouth: moist mucous membranes Neck Neck: Yes normal visual inspection, Yes full ROM and Yes trachea midline Chest Chest palpation & inspection: normal inspection of the chest Resp Effort & Inspection: normal respiratory effort, able to speak in complete sentences and no respiratory distress GI Inspection: Yes normal to inspection Back/Spine/Pelvis Cervical Spine: normal cervical lordosis Thoracic/Lumbar Spine: thoracic and lumbar spine normal to inspection Skin General skin exam: no rashes or lesions noted Neuro General: patient oriented x3, gait normal, tone normal and moves all extremities Extrem General: Yes normal to inspection and Yes capillary refill normal Assessment & Plan Assessment & Plan (1) Renal cyst: Code(s): N28.1 - Cyst of kidney, acquired Category: Medical Plan Plan imaging Orders: Orders CT abdomen wo/w IV con Today N28.1 - Cyst of kidney, acquired Patient Instructions: Imaging studies, laboratory and physical exam results were discussed and reviewed in detail. No major barriers to patient understanding were identified. An opportunity to ask questions regarding the treatment plan was provided. All questions were answered. The patient expressed understanding and agreement with the above treatment plan. The patient is aware they should contact our office by phone for worsening of their current condition or the appearance of new urologic symptoms. Compliance is encouraged with any medications and followup testing that is ordered. It is a privilege to participate in the urologic care of your patient. If you have any questions or concerns regarding treatment for the above conditions, or other urologic issues, please do not hesitate to contact me. The office telephone contact is [phone]. This note is constructed using voice recognition software. While every effort has been made to ensure accuracy consumer marketing manager errors may have been included. Yours sincerely, Dr Adalid Troncoso MD, [facility] - Urology Providers of Expert, Compassionate Care for the Genitourinary System Coding Level of Care Code Est Pt Level 3 (93661) Diagnoses Renal cyst N28.1
== END 2024-08-30 14:31 | disposition home or self-care (01) ==
PROVIDERS: Visit Provider Urology
DX: N28.1 Cyst of kidney, acquired (principal)
CPT/HCPCS: 99213

== ENCOUNTER → 2024-08-30 13:54 | Outpatient (BNVA) | payer MEDICAID, SELFPAY | PROVIDERS: Visit Provider Urology | DX: N28.1 Cyst of kidney, acquired (principal) | CPT/HCPCS: 99212 ==

== ENCOUNTER 2024-10-29 09:12 | Outpatient (REF) | payer MEDICAID, SELFPAY ==
--- NOTE | ~2024-10-29 | CT_ITS ---
CLINICAL HISTORY: N28.1 - Cyst of kidney, acquired CT abdomen with and without contrast Comparison: US/LA/SR - US RENAL BI - 10/04/23 17:53 EST Findings: No consolidation or effusion. Unremarkable gallbladder. Within the superior pole right kidney, there is a 14 mm diameter hypodense focus, with precontrast Hounsfield units of 7 and postcontrast Hounsfield units of 21 on delayed imaging, indicating enhancing focus. There is a 25 mm parapelvic right interpolar hypodense focus with precontrast Hounsfield units of -2, and postcontrast Hounsfield units of 5, consistent with a benign cyst. There is an exophytic hypodense focus protruding anteriorly from the inferior pole right kidney measuring 12 mm, which demonstrates precontrast Hounsfield units of 12, and postcontrast Hounsfield units of 6, consistent with a benign cyst. There is an exophytic nonenhancing 4 mm focus protruding laterally from the interpolar left kidney, consistent with a cyst. Renal enhancement is otherwise within normal limits. No nephrolithiasis. No hydronephrosis. Remaining solid organs are within normal limits. No bowel obstruction, pneumoperitoneum, or pneumatosis. No acute fracture. IMPRESSION: 1. Enhancing right superior pole renal focus, consistent with a Bosniak II F lesion. Urologic consultation recommended. This document has been electronically signed by: Paulina Dai MD on 10/29/2024 19:00:55
[2024-10-29] MEDS: iohexoL 350 MG/ML 100 ML INFUS..BTL IV (10:10)
[2024-10-29 16:18] LABS: Creatinine POC 0.6 mg/dL (0.5-1.4); GFR POC > 60
== END 2024-10-29 09:13 | disposition home or self-care (01) ==
LOC: HO.CT 09:12
PROVIDERS: Visit Provider Urology
DX: N28.1 Cyst of kidney, acquired (principal)
CPT/HCPCS: 74170; 82565; Q9967

== ENCOUNTER → 2024-10-29 09:13 | Outpatient (BNV) | payer MEDICAID, SELFPAY | PROVIDERS: Visit Provider Radiology Diagnostic Radiology | DX: N28.89 Other specified disorders of kidney and ureter (principal) | CPT/HCPCS: 74170 ==

== ENCOUNTER 2024-11-05 12:49 | Outpatient (AMB) | payer MEDICAID, SELFPAY ==
--- NOTE | 2024-11-05 13:02 | MHC.OFFVIS ---
Intake Visit Reasons: [address](set) Intake Note: Patient is present for 4w CT Urology Medication:NONE Antibiotic Allergy:NONE Blood Thinner:ASPIRIN Scrap Crusher Required: No Allergies No Known Allergies Allergy (Verified 11/05/24 13:04) HPI Comments Details: Sandip is a pleasant male. He He is seen for the following urologic conditions - complex renal cyst CT shows Bosniak 2 Twelve month follow-up ultrasound Complex renal cyst found during evaluation of cardiomyopathy Imaging - CT - The right upper renal pole lesion reported on CT scan of chest could not be demonstrated on ultrasound examination. Further evaluation with pre and postcontrast MRI of the abdomen is therefore recommended. - 09/15 CT with contrast Enhancing right superior pole renal focus, consistent with a Bosniak II [facility] Medical History Cigarette smoker Cocaine abuse Spontaneous pneumothorax Hypertension Surgical History History of ear surgery Social History Household Members: Family Housing: House Do you presently have visiting nurse or other home services: No Patient Tobacco Use Status: Current everyday Tobacco user Tobacco use type: Cigarette Cigarette Packs Per Day: 0.5 Cigarettes Per Day: 10 Years Smoked: 35 Second Hand Smoke Exposure: No Substance Use Type: Crack/Cocaine and Marijuana service: No Review of Systems Const Denies chills and Denies fever(s) Card Reports no additional complaints and Denies syncope Resp Denies cough GI Denies abdominal pain and Denies heartburn Reports as per HPI and Denies change in libido Neuro Denies syncope Psych Denies change in libido Endo Denies change in libido Physical Exam Const General: cooperative, healthy appearing, comfortable and no acute distress Orientation/consciousness: patient oriented x3 HEENT Face and sinus: Yes normal facial exam Mouth: moist mucous membranes Neck Neck: Yes normal visual inspection, Yes full ROM and Yes trachea midline Chest Chest palpation & inspection: normal inspection of the chest Resp Effort & Inspection: normal respiratory effort, able to speak in complete sentences and no respiratory distress GI Inspection: Yes normal to inspection Back/Spine/Pelvis Cervical Spine: normal cervical lordosis Thoracic/Lumbar Spine: thoracic and lumbar spine normal to inspection Skin General skin exam: no rashes or lesions noted Neuro General: patient oriented x3, gait normal, tone normal and moves all extremities Extrem General: Yes normal to inspection and Yes capillary refill normal Assessment & Plan Assessment & Plan (1) Renal cyst: Code(s): N28.1 - Cyst of kidney, acquired Category: Medical Plan Twelve month follow-up renal ultrasound Orders: Orders US renal BI 12 Months N28.1 - Cyst of kidney, acquired Patient Instructions: Imaging studies, laboratory and physical exam results were discussed and reviewed in detail. No major barriers to patient understanding were identified. An opportunity to ask questions regarding the treatment plan was provided. All questions were answered. The patient expressed understanding and agreement with the above treatment plan. The patient is aware they should contact our office by phone for worsening of their current condition or the appearance of new urologic symptoms. Compliance is encouraged with any medications and followup testing that is ordered. It is a privilege to participate in the urologic care of your patient. If you have any questions or concerns regarding treatment for the above conditions, or other urologic issues, please do not hesitate to contact me. The office telephone contact is [phone]. This note is constructed using voice recognition software. While every effort has been made to ensure accuracy warehouse record clerk errors may have been included. Yours sincerely, Dr Adalid Troncoso MD, [facility] - Urology Providers of Expert, Compassionate Care for the Genitourinary System Coding Level of Care Code Est Pt Level 3 (50953) Diagnoses Renal cyst N28.1
== END 2024-11-05 13:29 | disposition home or self-care (01) ==
PROVIDERS: Visit Provider Urology
DX: N28.1 Cyst of kidney, acquired (principal)
CPT/HCPCS: 99213

== ENCOUNTER → 2024-11-05 12:49 | Outpatient (BNVA) | payer MEDICAID, SELFPAY | PROVIDERS: Visit Provider Urology | DX: N28.1 Cyst of kidney, acquired (principal) | CPT/HCPCS: 99212 ==

== ENCOUNTER → 2024-11-19 13:36 | Outpatient (REF) | payer MEDICAID, SELFPAY ==
--- NOTE | 2024-11-19 13:35 | CA_ITS ---
Transthoracic Echocardiogram Patient (Last, First, Middle): Sandip Forte J Gender: Male Date of : 1970 Age: 53 Procedure Date: 11/19/2024 Procedure Type: Transthoracic Echocardiogram Location: OP Height: 182.88 cm Weight: 149.69 kg BSA: 2.64 m2 Heart Rate: bpm BP: 106 / 72 mmHg Recruiter Specialist: TO Referring MD: Carmen Dawkins INFRASTRUCTURE ENGINEERMylene Symptoms: I42.9 - Cardiomyopathy, unspecified Study Quality: Technically Difficult/contrast Conclusions: - The left ventricular systolic function is moderately decreased. The visually estimated ejection fraction is between 35-40%. Findings Procedure Information Contrast agent, definity, is being given per protocol without apparent complications. Left Ventricle Normal left ventricular cavity size. The left ventricular systolic function is moderately decreased. The visually estimated ejection fraction is between 35-40%. There is moderate global hypokinesis. Venous The inferior vena cava was not well visualized. The inferior vena cava is normal in size and collapses greater than 50% with inspiration. Prior Study Comparison Changes noted compared to prior study dated: 04/18/2024. LVEF improved. Measurements 2D Linear Measurements IVSd: 1.23 0.6-0.9/0.6-1.0 cm LVIDd: 5.77 3.9-5.3/4.2-5.9 cm LVIDd Index: 2.19 2.4-3.2/2.2-3.1 cm/m2 LVIDs: 4.54 2.0-3.6 cm LVPWd: 1.00 0.7-1.1 cm LV Mass: 332.50 67-162/88-224 g LV Mass Index: 125.95 43-95/49-115 g/m2 LVOT Diam: 2.40 3.0+(-)1.3 cm 2D Systolic Function EF 4C: 46.40 >55% EF 2C: 44.40 >55% EF BiP: 44.10 >55% LVOT LVOT Pk Arthur: 0.89 LVOT Mn Arthur: 0.58 LVOT VTI: 0.15 LVOT Pk Grad: 3.00 LVOT Mn Grad: 2.00 LVOT Diam: 2.40 LVOT Area: 4.52 Tricuspid Valve RA Press: 3.00 Updated in Other Vendor System with Status of Final Armond Dias MD electronically signed on 11/20/2024 12:00:06 PM with status of Final
== END ==
LOC: HO.CARD 13:36
PROVIDERS: PCP Internal Medicine; Visit Provider Nurse Practitioner Family
DX: I42.9 Cardiomyopathy, unspecified (principal)
CPT/HCPCS: 93308; Q9957

== ENCOUNTER 2024-12-25 13:00 | Outpatient (AMB) | payer MEDICAID, SELFPAY ==
--- NOTE | 2024-12-25 13:09 | A.OFFVIS_ITS ---
Vital Signs 12/25/24 13:11 Height 6 ft 4 in Weight 324 lb 8.327 oz BMI 39.5 BP 134/62 Blood Pressure Location Lt brachial Position Sitting Pulse 76 Pulse Source Pulse Oximeter Intake Visit Reasons: 4m follow up Intake Note: 4 mth f/up Bromination Equipment Operator Required: No Accompanied by: Self / Same As Patient Allergies No Known Allergies Allergy (Verified 11/05/24 13:04) Medication List - Last Reconciled 12/25/24 by Julio Hoffman MD acetaminophen 650 mg (2 x 325 mg) PO Q6H PRN aspirin 81 mg PO DAILY carvedilol 6.25 mg PO BID dapagliflozin propanediol (Farxiga) 5 mg PO DAILY fluticasone propionate 50 mcg/actuation 1 spray intranasal DAILY furosemide 40 mg PO BID losartan 100 mg PO DAILY semaglutide (weight loss) 0.25 mg subcut QWEEK spironolactone 25 mg See Protocol PO DAILY HPI Comments Details: 54-year-old gentleman who is here for follow-up. He was in the hospital for congestive heart failure. He had EF of 20 25%. He was using cocaine and alcohol. He was started on guideline directed medical therapy and was discharged home. He was seen in the office and was feeling better and was compliant with medications. He returns now and has some improvement in symptoms. He has stopped smoking and has been gaining weight. His blood pressure is elevated. He still has mild peripheral edema. We were trying to arrange an echocardiogram on him but his insurance only covering the echocardiogram if it is done at [facility]. He said he is scheduled to have it done next week. 06/19/2024: He returns for follow-up. He had echocardiography performed at [facility] where ejection fraction was read as 30-40% with apical akinesis. He has stopped drinking alcohol and has not been using cocaine. He has stopped smoking 2. He is saying that he has gained approximately 100 lb s masterseptember. He is seeing a bariatric surgeon at [facility]. Blood pressure is better controlled. He continues to be morbidly obese and has peripheral edema. He is denying any significant chest discomfort. 12/25/2024: Repeat echocardiography 11/11/2024 showing EF 35-40%. He had cardiac catheterization in 08/11/2024 showing no significant coronary disease and he has nonischemic cardiomyopathy. He has been following with weight management program at [facility] and has lost 50 lb at this point. He is feeling much better. Blood pressure is well controlled. Overall clinically stable and looking good. [facility] Medical History Cigarette smoker Cocaine abuse Spontaneous pneumothorax Hypertension Surgical History History of ear surgery Social History Household Members: Family Housing: House Do you presently have visiting nurse or other home services: No Patient Tobacco Use Status: Current everyday Tobacco user Tobacco use type: Cigarette Cigarette Packs Per Day: 0.5 Cigarettes Per Day: 10 Years Smoked: 35 Second Hand Smoke Exposure: No Substance Use Type: Crack/Cocaine and Marijuana service: No Review of Systems Const Denies chills, Denies fatigue, Denies fever(s), Denies frequent falls, Denies weakness, Denies weight gain and Denies weight loss ENT Denies dizziness Card Denies chest pain, Denies leg edema, Denies lightheadedness, Denies palpitations, Denies dyspnea and Denies dyspnea on exertion Resp Denies cough, Denies dyspnea and Denies dyspnea on exertion GI Denies hematochezia Musc Denies abnormal gait, Denies muscle weakness, Denies numbness, Denies radiating pain into limb and Denies tingling Neuro Denies abnormal gait, Denies dizziness, Denies frequent falls, Denies numbness, Denies tingling and Denies weakness Endo Denies fatigue and Denies palpitations Physical Exam Vital Signs: Last Vital Signs Pulse 76 12/25/24 13:11 BP 134/62 12/25/24 13:11 BMI result Body Mass Index 39.5 GENERAL APPEARANCE: Overweight. In no distress. NECK: no carotid bruit, no jugular venous distention. SKIN: no suspicious lesions, warm and dry. HEART: no murmurs, regular rate and rhythm. LUNGS: Clear to auscultation bilaterally. ABDOMEN: soft, nontender. EXTREMITIES: mild edema. PERIPHERAL PULSES: equal. NEUROLOGIC: No gross deficits, AAO X 3 Assessment & Plan Assessment & Plan (1) Hypertension: Code(s): I10 - Essential (primary) hypertension Category: Medical (2) Cardiomyopathy: Code(s): I42.9 - Cardiomyopathy, unspecified Category: Medical Plan 53-year-old gentleman here for follow-up. He was seen in the hospital when he presented with de efra congestive heart failure with cardiomyopathy and severe LV dysfunction. He was diuresed and started on guideline directed medical therapy. He was doing cocaine and drinking alcohol and smoking. He has stopped all these habits and reports that he has not been using them for few months now. He underwent cardiac catheterization which did not show any significant coronary disease. He has nonischemic cardiomyopathy. Last echocardiography has shown EF 35-40%. Overall LVEF appears to be stable. He is exercising and losing weight. He is on semaglutide. Follow-up with us in 4 months. Thank you for allowing me to participate in the care of your patient. Please feel free to contact me if you have any questions. Coding Level of Care Code Est Pt Level 4 (96153) Diagnoses Hypertension I10 Cardiomyopathy I42.9
[2024-12-25 13:11] VITALS: BP 134/62; PULSE 76; BMI 39.5
== END 2024-12-25 13:32 | disposition home or self-care (01) ==
PROVIDERS: PCP Internal Medicine; Visit Provider Internal Medicine Cardiovascular Disease
DX: I10 Essential (primary) hypertension (principal); I42.9 Cardiomyopathy, unspecified
CPT/HCPCS: 99214

== ENCOUNTER → 2024-12-25 13:00 | Outpatient (BNVA) | payer MEDICAID, SELFPAY | PROVIDERS: PCP Internal Medicine; Visit Provider Internal Medicine Cardiovascular Disease | DX: I11.0 Hypertensive heart disease with heart failure (principal); I50.9 Heart failure, unspecified; I42.9 Cardiomyopathy, unspecified | CPT/HCPCS: 99212 ==

== ENCOUNTER 2025-05-05 13:10 | Outpatient (AMB) | payer MEDICAID, SELFPAY ==
[2025-05-05 13:19] VITALS: BP 130/62; PULSE 79; BMI 35.7
--- NOTE | 2025-05-05 13:19 | MHC.OFFVIS ---
Vital Signs 05/05/25 13:19 Height 6 ft 4 in Weight 293 lb 3.437 oz BMI 35.7 BP 130/62 Blood Pressure Location Lt brachial Position Sitting Pulse 79 Pulse Source Monitor Intake Visit Reasons: 4 mth f/up Intake Note: 4 mth f/up Water Rights Specialist Required: No Accompanied by: Self / Same As Patient Allergies No Known Allergies Allergy (Verified 11/05/24 13:04) Medication List - Last Reconciled 05/05/25 by Julio Hoffman MD acetaminophen 650 mg (2 x 325 mg) PO Q6H PRN ascorbic acid (vitamin C) 1,000 mg PO BID aspirin 81 mg PO DAILY atorvastatin (Lipitor) 20 mg PO DAILY carvedilol 6.25 mg PO BID cholecalciferol (vitamin D3) 25 mcg PO DAILY dapagliflozin propanediol (Farxiga) 5 mg PO DAILY fluticasone propionate 50 mcg/actuation 1 spray intranasal DAILY furosemide 40 mg PO BID losartan 100 mg PO DAILY magnesium citrate 250 mg PO DAILY [id number]-[id number] 442-66-344-300 mcg (Centrum Silver Men) 1 tab PO DAILY omega 3-vfx-qjg-fish oil 300-1,000 mg (Fish Oil) 1 cap PO DAILY semaglutide (weight loss) 0.25 mg subcut QWEEK spironolactone 25 mg See Protocol PO DAILY HPI Comments Details: 54-year-old gentleman who is here for follow-up. He was in the hospital for congestive heart failure. He had EF of 20 25%. He was using cocaine and alcohol. He was started on guideline directed medical therapy and was discharged home. He was seen in the office and was feeling better and was compliant with medications. He returns now and has some improvement in symptoms. He has stopped smoking and has been gaining weight. His blood pressure is elevated. He still has mild peripheral edema. We were trying to arrange an echocardiogram on him but his insurance only covering the echocardiogram if it is done at [facility]. He said he is scheduled to have it done next week. 06/19/2024: He returns for follow-up. He had echocardiography performed at [facility] where ejection fraction was read as 30-40% with apical akinesis. He has stopped drinking alcohol and has not been using cocaine. He has stopped smoking 2. He is saying that he has gained approximately 100 lb since September. He is seeing a bariatric surgeon at [facility]. Blood pressure is better controlled. He continues to be morbidly obese and has peripheral edema. He is denying any significant chest discomfort. 12/25/2024: Repeat echocardiography 11/11/2024 showing EF 35-40%. He had cardiac catheterization in 08/11/2024 showing no significant coronary disease and he has nonischemic cardiomyopathy. He has been following with weight management program at [facility] and has lost 50 lb at this point. He is feeling much better. Blood pressure is well controlled. Overall clinically stable and looking good. 05/05/25: Here for follow-up. Echocardiography October 2024 showed EF of 35-40%. On towards appetite and has been losing weight. He has stopped cocaine use and only drinks occasionally. Taking medications regularly. He is concerned about diuretics and on his Lasix frequency can be changed to once a day. He is saying that he wakes up multiple times at night to pass urine. It appears he takes a 2nd dose of Lasix at 19:00. [facility] Medical History Cigarette smoker Cocaine abuse Spontaneous pneumothorax Hypertension Surgical History History of ear surgery Social History Household Members: Family Housing: House Do you presently have visiting nurse or other home services: No Patient Tobacco Use Status: Current everyday Tobacco user Tobacco use type: Cigarette Cigarette Packs Per Day: 0.5 Cigarettes Per Day: 10 Years Smoked: 35 Second Hand Smoke Exposure: No Substance Use Type: Crack/Cocaine and Marijuana service: No Review of Systems Const Denies chills, Denies fatigue, Denies fever(s), Denies frequent falls, Denies weakness, Denies weight gain and Denies weight loss ENT Denies dizziness Card Denies chest pain, Denies leg edema, Denies lightheadedness, Denies palpitations, Denies dyspnea and Denies dyspnea on exertion Resp Denies cough, Denies dyspnea and Denies dyspnea on exertion GI Denies hematochezia Musc Denies abnormal gait, Denies muscle weakness, Denies numbness, Denies radiating pain into limb and Denies tingling Neuro Denies abnormal gait, Denies dizziness, Denies frequent falls, Denies numbness, Denies tingling and Denies weakness Endo Denies fatigue and Denies palpitations Physical Exam Vital Signs: Last Vital Signs Pulse 79 05/05/25 13:19 BP 130/62 05/05/25 13:19 BMI result Body Mass Index 35.7 GENERAL APPEARANCE: Overweight. In no distress. NECK: no carotid bruit, no jugular venous distention. SKIN: no suspicious lesions, warm and dry. HEART: no murmurs, regular rate and rhythm. LUNGS: Clear to auscultation bilaterally. ABDOMEN: soft, nontender. EXTREMITIES: mild edema. PERIPHERAL PULSES: equal. NEUROLOGIC: No gross deficits, AAO X 3 Office Procedures EKG Details: NSR 79/min, low voltage QRS, Nonspecific T wave abnormality, QTc 454 msec. [id number], Complete Assessment & Plan Assessment & Plan (1) Cardiomyopathy: Code(s): I42.9 - Cardiomyopathy, unspecified Category: Medical (2) Hypertension: Code(s): I10 - Essential (primary) hypertension Category: Medical Plan [age] year gentleman who is here for follow-up. He has nonischemic cardiomyopathy and last echocardiography was done in October of 2024 showing EF of 35-40%. Was previously using cocaine and drinking alcohol heavily. He has stopped using both and occasionally drinks only at this stage. Taking medications regularly. He has concern is about Lasix b.i.d. dosing. I have explained to him that he can stop the evening dose and monitor his weight. If he gains 2-3 lb in a day or 2 then he should resume his Lasix. If he is resuming his Lasix he should take the afternoon dose early around 2-3 pm so the maximum effective Lasix is wearing off when he goes to bed. We will check echocardiogram to reassess the ejection fraction and I am hoping that his LV function will improve completely. Follow up with us in 3 months. Thank you for allowing me to participate in the care of your patient. Please feel free to contact me if you have any questions. Orders: Orders CA echo transthorac w con Today I42.9 - Cardiomyopathy, unspecified Coding Level of Care Code Est Pt Level 4 (90203) Diagnoses Cardiomyopathy I42.9 Hypertension I10 CPT Codes EKG - CPT: 49912-[id number], Complete ([id number])
== END 2025-05-05 13:45 | disposition home or self-care (01) ==
LOC: HO.HCS 13:10
PROVIDERS: PCP Internal Medicine; Visit Provider Internal Medicine Cardiovascular Disease
DX: I42.9 Cardiomyopathy, unspecified (principal); I10 Essential (primary) hypertension
CPT/HCPCS: 93010; 99214

== ENCOUNTER → 2025-05-05 13:10 | Outpatient (BNVA) | payer MEDICAID, SELFPAY | PROVIDERS: PCP Internal Medicine; Visit Provider Internal Medicine Cardiovascular Disease | DX: I10 Essential (primary) hypertension (principal); I42.9 Cardiomyopathy, unspecified | CPT/HCPCS: 93005; 99212 ==

== ENCOUNTER 2025-09-01 13:42 | Outpatient (AMB) | payer MEDICAID, SELFPAY ==
--- NOTE | 2025-09-01 13:44 | A.OFFVIS_ITS ---
Vital Signs 09/01/25 13:45 Height 6 ft 4 in Weight 291 lb 0.163 oz BMI 35.4 BP 100/70 Blood Pressure Location Lt brachial Position Sitting Pulse 84 Pulse Source Pulse Oximeter Intake Visit Reasons: 4 Month Follow Up Intake Note: 4 mth f/up-echo Hospice Clinical Supervisor Required: No Accompanied by: Self / Same As Patient Allergies No Known Allergies Allergy (Verified 11/05/24 13:04) Medication List - Last Reconciled 09/01/25 by Julio Hoffman MD acetaminophen 650 mg (2 x 325 mg) PO Q6H PRN ascorbic acid (vitamin C) 1,000 mg PO BID aspirin 81 mg PO DAILY atorvastatin (Lipitor) 20 mg PO DAILY carvedilol 6.25 mg PO BID cholecalciferol (vitamin D3) 25 mcg PO DAILY dapagliflozin propanediol (Farxiga) 5 mg PO DAILY fluticasone propionate 50 mcg/actuation 1 spray intranasal DAILY furosemide 40 mg PO QAM losartan 100 mg PO DAILY magnesium citrate 250 mg PO DAILY yk-pap-lfuev-Q3-pqwrjlg-lxwpkl [id number] mcg (Centrum Silver Men) 1 tab PO DAILY omega 3-max-kbo-fish oil 300-1,000 mg (Fish Oil) 1 cap PO DAILY spironolactone 25 mg See Protocol PO DAILY HPI Comments Details: 54-year-old gentleman who is here for follow-up. He was in the hospital for congestive heart failure. He had EF of 20 25%. He was using cocaine and alcohol. He was started on guideline directed medical therapy and was discharged home. He was seen in the office and was feeling better and was compliant with medications. He returns now and has some improvement in symptoms. He has stopped smoking and has been gaining weight. His blood pressure is elevated. He still has mild peripheral edema. We were trying to arrange an echocardiogram on him but his insurance only covering the echocardiogram if it is done at [facility]. He said he is scheduled to have it done next week. 06/19/2024: He returns for follow-up. He had echocardiography performed at [facility] where ejection fraction was read as 30-40% with apical akinesis. He has stopped drinking alcohol and has not been using cocaine. He has stopped smoking 2. He is saying that he has gained approximately 100 lb since September. He is seeing a bariatric surgeon at [facility]. Blood pressure is better controlled. He continues to be morbidly obese and has peripheral edema. He is denying any significant chest discomfort. 12/25/2024: Repeat echocardiography 11/11/2024 showing EF 35-40%. He had cardiac catheterization in 08/11/2024 showing no significant coronary disease and he has nonischemic cardiomyopathy. He has been following with weight management program at [facility] and has lost 50 lb at this point. He is feeling much better. Blood pressure is well controlled. Overall clinically stable and looking good. 05/05/25: Here for follow-up. Echocardiography October 2024 showed EF of 35- 40%. On towards appetite and has been losing weight. He has stopped cocaine use and only drinks occasionally. Taking medications regularly. He is concerned about diuretics and on his Lasix frequency can be changed to once a day. He is saying that he wakes up multiple times at night to pass urine. It appears he takes a 2nd dose of Lasix at 19:00. 09/01/2025: He is here for follow-up. He had repeat echocardiography at [facility] which showed [id number] LV dysfunction like before. Continues to take medications regularly. He has not been using any drugs or drinking alcohol. Taking medications regularly. He is on Zepbound for weight loss but he has not been losing weight more recently due to dietary indiscretion. [facility] Medical History Cigarette smoker Cocaine abuse Spontaneous pneumothorax Hypertension Surgical History History of ear surgery Social History Household Members: Family Housing: House Do you presently have visiting nurse or other home services: No Patient Tobacco Use Status: Current everyday Tobacco user Tobacco use type: Cigarette Cigarette Packs Per Day: 0.5 Cigarettes Per Day: 10 Years Smoked: 35 Second Hand Smoke Exposure: No Substance Use Type: Crack/Cocaine and Marijuana service: No Review of Systems Const Denies chills, Denies fatigue, Denies fever(s), Denies frequent falls, Denies weakness, Denies weight gain and Denies weight loss ENT Denies dizziness Card Denies chest pain, Denies leg edema, Denies lightheadedness, Denies palpitations, Denies dyspnea and Denies dyspnea on exertion Resp Denies cough, Denies dyspnea and Denies dyspnea on exertion GI Denies hematochezia Musc Denies abnormal gait, Denies muscle weakness, Denies numbness, Denies radiating pain into limb and Denies tingling Neuro Denies abnormal gait, Denies dizziness, Denies frequent falls, Denies numbness, Denies tingling and Denies weakness Endo Denies fatigue and Denies palpitations Physical Exam Vital Signs: Last Vital Signs Pulse 84 09/01/25 13:45 BP 100/70 09/01/25 13:45 BMI result Body Mass Index 35.4 GENERAL APPEARANCE: Overweight. In no distress. NECK: no carotid bruit, no jugular venous distention. SKIN: no suspicious lesions, warm and dry. HEART: no murmurs, regular rate and rhythm. LUNGS: Clear to auscultation bilaterally. ABDOMEN: soft, nontender. EXTREMITIES: mild edema. PERIPHERAL PULSES: equal. NEUROLOGIC: No gross deficits, AAO X 3 Assessment & Plan Assessment & Plan (1) Cardiomyopathy: Code(s): I42.9 - Cardiomyopathy, unspecified Category: Medical (2) Hypertension: Code(s): I10 - Essential (primary) hypertension Category: Medical Plan 54-year-old gentleman who is here for follow-up. He has nonischemic cardiomyopathy. He has stopped drinking alcohol and has not been using cocaine. He had repeat echocardiogram done at [facility] . Reported ejection fraction was 36%. I think overall he has not had any significant change in EF compared to echo at [facility] in October 2024. Clinically he has been doing well and has no symptoms. He is taking Lasix once a day at this point. Blood pressure is reasonably controlled. He will follow up with us in 6 months. Thank you for allowing me to participate in the care of your patient. Please feel free to contact me if you have any questions. Coding Level of Care Code Est Pt Level 4 (60825) Diagnoses Cardiomyopathy I42.9 Hypertension I10
[2025-09-01 13:45] VITALS: BP 100/70; PULSE 84; BMI 35.4
--- OUTSIDE RECORDS SUMMARY | 2025-09-01 15:52 | XMS_ITS | Encounter Summary ---
Author Organization [facility] Address [address] [place] [address] Phone Care Team Providers Care Residence Hall Director Name Role Phone Sayda Storey NP Primary Care Provide r Freya Lloyd RN Unavailable Jasvir Siddiqi MD Primary Care Provider [phone] Encounter Details Date Type Department Care Team (Late st Contact Info) Description 02/15/2024 Procedure Pass [facility] [address] [place] [address] Social History Tobacco Use Types Packs/Day Years Used Date Smoking Tobacco: Never Assessed Education Answer Date Recorded Are you interested in more education? Not on luna e 01/28/2024 Are you concerned about learning? Not on file 01/28/2024 No 01/28/2024 No 01/28/2024 Digital Access Answer Date Recorded No 01/28/2024 No 01/28/2024 Reliable internet access at home? Not on file 01/28/2024 Device with a working camera? Not on file Sex and Gender Information Value Date Recorded Sex Assigned at Not on file Legal Sex Male 3:00 PM EST Gender Identity Not on file Sexual Orientation Not on file documented as of this encounter Plan of Treatment Upcoming Encounters Date Type Department Care Team (Late st Contact Info) Description 10/03/2025 1:30 PM EST Office Visit [facility] General Surgical Care [address] [place] [address] Antonietta Griffiths, SHIFT SUPERINTENDENT CAUSTIC CRESYLATE [address] [facility], 2nd [place] [address] 10/07/2025 4:00 PM EST Nutrition [facility] General Surgical Care [address] [place] [address] Kristine Alba LDN [address] [place] [address] 10/24/2025 12:45 PM EST Office Visit [facility] Gastroenterology Clinic [address] [place] [address] Unknown, Unknown, Lora White, SHIFT SUPERINTENDENT CAUSTIC CRESYLATE [address] [place] [address] documented as of this encounter Visit Diagnoses Not on filedocumented in this encounter Care Teams Residence Hall Director Relationship Specialty Start Date End Date Sayda Storey NP [address] [place] [address] Dr 3rd [place] [address] PCP - General Nurse Practitioner 12/04/23 09/09/24 Jasvir Siddiqi MD [address] [place] [address] PCP - General Internal Medicine 09/10/24 Freya Lloyd, SHERRIE [address] [place] [address] PHCM Cargo Tank Mechanic 08/19/24 09/15/24 documented as of this encounter Additional Source Comments The information contained in this document represents components of the legal health record. It is not the complete legal health record.[facility]
--- OUTSIDE RECORDS SUMMARY | 2025-09-01 15:52 | XMS_ITS | Encounter Summary ---
Author Organization [facility] Address [address] [place] [address] Phone Care Team Providers Care Coffee Maker Name Role Phone Jasvir Siddiqi MD Primary Care Provider [phone] Reason for Visit * Reason Comments Medication Refill Encounter Details Date Type Department Care Team (Late st Contact Info) Description 08/13/2025 Refill [facility] General Surgical Care [address] [place] [address] Antonietta Griffiths, PARARESCUE MANAGER [address] [facility], 2nd [place] [address] [email or web address] Medication Refill Social History Tobacco Use Types Packs/Day Years Used Date Smoking Tobacco: Former Cigarettes Q uit: 09/2023 Smokeless Tobacco: Never Alcohol Use Standard Drinks/Week Comments Not Currently 0 (1 standard drink = 0.6 oz pur e alcohol) on special occasion Education Answer Date Recorded Are you interested in more education? Not on luna e 01/28/2024 Are you concerned about learning? Not on file 01/28/2024 No 01/28/2024 No 01/28/2024 Digital Access Answer Date Recorded No 01/28/2024 No 01/28/2024 Reliable internet access at home? Not on file 01/28/2024 Device with a working camera? Not on file Intimate Partner Violence Answer Date R ecorded Denied Basic Needs Not on file 06/17/2024 In the past 12 months have y ou been in a relationship with a person who hurts, threatens, or tries to control you? No 06/17/2024 Worried food would run out Not on file 06/17 In the past 12 months have y ou been in a relationship with a person who hurts, threatens, or tries to control you? No 06/17/2024 Sex and Gender Information Value Date Recorded Sex Assigned at Not on file Legal Sex Male 3:00 PM EST Gender Identity Not on file Sexual Orientation Not on file documented as of this encounter Plan of Treatment Upcoming Encounters Date Type Department Care Team (Late st Contact Info) Description 10/03/2025 1:30 PM EST Office Visit [facility] General Surgical Care 15 [place] [address] Antonietta Griffiths, PARARESCUE MANAGER [address] [facility], 2nd [place] [address] [email or web address] 10/07/2025 4:00 PM EST Nutrition [facility] Surgical [facility] [address] [place] [address] Kristine Alba LDN [facility]. [address] [place] [address] 10/24/2025 12:45 PM EST Office Visit [facility]astro[facility] [address] [place] [address] Unknown, Unknown, Lora White, PARARESCUE MANAGER [address] [place] [address] documented as of this encounter Visit Diagnoses Not on filedocumented in this encounter Care Teams Coffee Maker Relationship Specialty Start Date End Date Jasvir Siddiqi MD [address] [place] [address] PCP - General Internal Medicine 09/10/24 documented as of this encounter Additional Source Comments The information contained in this document represents components of the legal health record. It is not the complete legal health record.[facility]
--- OUTSIDE RECORDS SUMMARY | 2025-09-01 15:53 | XMS_ITS | Encounter Summary ---
Author Organization [facility] Address [address] [place] [address] [place] [phone] Phone Care Team Providers Care Rodeo Rider Name Role Phone Jasvir Siddiqi MD Primary Care Provider [phone] Encounter Details Date Type Department Care Team (Late st Contact Info) Description 07/31/2025 Procedure Pass [facility] Echo [facility] [address] [place] [address] Social History Tobacco Use Types Packs/Day Years [...] Description 10/03/2025 1:30 PM EST Office Visit [facility] General Surgical Care [address] [place] [address] Antonietta Griffiths, MANAGER BUSINESS PROCESS 15 [facility], 2nd [place] [address] 10/07/2025 4:00 PM EST Nutrition [facility] General Surgical Care 15 [place] [address] Kristine Alba, ADRIANAN [facility]. [address] [place] [address] 10/24/2025 12:45 PM EST Office Visit [facility] Gastroenterology Clinic [address] [place] [phone] Unknown, Unknown, Lora White, MANAGER BUSINESS PROCESS 10 [place] [address] documented as of this encounter Visit Diagnoses Not on filedocumented in this encounter Care Teams Rodeo Rider Relationship Specialty Start Date End Date Jasvir Siddiqi MD [address] [place] [address] PCP - General Internal Medicine 09/10/24 documented as of this encounter Additional Source Comments The information contained in this document represents components of the legal health record. It is not the complete legal health record.[facility]
--- OUTSIDE RECORDS SUMMARY | 2025-09-01 15:53 | XMS_ITS | Encounter Summary ---
Author Organization [facility] Address [address] [place] [address] [place] [address] Phone Care Team Providers Care Legal Project Manager Name Role Phone Sayda Storey E COMMERCE MANAGER Primary Care Provide r Freya Lloyd RN Unavailable Jasvir Siddiqi MD Primary Care Provider [phone] Encounter Details Date Type Department Care Team (Late st Contact Info) Description 08/14/2024 Procedure Pass [facility] Endoscopy Admitting Dept Virtual Department [address] [place] [address] Social History Tobacco Use Types Packs/Day Years [...] Description 10/03/2025 1:30 PM EST Office Visit [facility] General Surgical Care 15 [place] [address] Antonietta Griffiths, FOUNDER AND CEO [address] [facility], [address]nd [place] [address] 10/07/2025 4:00 PM EST Nutrition [facility] General Surgical Care 15 [place] [address] Kristine Alba, ALEXEI [address] Enrique[address] [place] [address] 10/24/2025 12:45 PM EST Office Visit [facility] Gastroenterology Clinic [address] [place] [phone] Unknown, Unknown, Lora White, FOUNDER AND CEO [address] [place] [address] documented as of this encounter Visit Diagnoses Not on filedocumented in this encounter Care Teams Legal Project Manager Relationship Specialty Start Date End Date Sayda Storey NP [address] [place] [address] 3[address] [place] [address] PCP - General Nurse Practitioner 12/04/23 09/09/24 Jasvir Siddiqi MD [address] [place] [address] PCP - General Internal Medicine 09/10/24 Freya Lloyd, RN [address] [place] [address] [email or web address] PHCM Buttermaker Continuous Churn 08/19/24 09/15/24 documented as of this encounter Additional Source Comments The information contained in this document represents components of the legal health record. It is not the complete legal health record.[facility]
--- OUTSIDE RECORDS SUMMARY | 2025-09-01 15:53 | XMS_ITS | Encounter Summary ---
Author Organization [facility] Address [address] [place] [address] Phone Care Team Providers Care Weigher Packing Name Role Phone Sayda Storey NP Primary Care Provide r Freya Lloyd RN Unavailable Jasvir Siddiqi MD Primary Care Provider [phone] Encounter Details Date Type Department Care Team (Latest Contact Info) Description 11/29/2023 Transcribe Orders Virtual Department [address] [place] [address] Sayda Storey, JULIAN [address] [place] [address] Cardiomyopathy, unspecified type (Primary Dx); Heart failure, unspecified HF chronicity, unspecified heart failure type Social History Tobacco Use Types Packs/Day Years Used Date Smoking Tobacco: Never Assessed Sex and Gender Information Value Date Recorded Sex Assigned at Not on file Legal Sex Male 3:00 PM EST Gender Identity Not on file Sexual Orientation Not on file documented as of this encounter Plan of Treatment Upcoming Encounters Date Type Department Care Team (Late st Contact Info) Description 10/03/2025 1:30 PM EST Office Visit [facility] General Surgical Care [address] [place] [address] Antonietta Griffiths, RUBBER GOODS TESTER WATER 15 [facility], 2nd [place] [address] 10/07/2025 4:00 PM EST Nutrition [facility] General Surgical Care [address] [place] [address] Kristine Alba LDN [address] [place] [address] 10/24/2025 12:45 PM EST Office Visit [facility] Gastroenterology Clinic 10 [place] [address] Unknown, Unknown, Lora White, RUBBER GOODS TESTER WATER 10 [place] [address] documented as of this encounter Visit Diagnoses Diagnosis Cardiomyopathy, unspecified type- Primary Heart failure, unspecified HF chronicity, unspecified heart failure type documented in this encounter Care Teams Weigher Packing Relationship Specialty Start Date End Date Sayda Storey NP [address] [place] [address] 3[address] [place] [address] PCP - General Nurse Practitioner 12/04/23 09/09/24 Jasvir Siddiqi MD [address] [place] [address] PCP - General Internal Medicine 09/10/24 Freya Lloyd RN [address] [place] [address] [employer] Company Laundry Worker 08/19/24 09/15/24 documented as of this encounter Additional Source Comments The information contained in this document represents components of the legal health record. It is not the complete legal health record.[facility]
--- OUTSIDE RECORDS SUMMARY | 2025-09-01 15:53 | XMS_ITS | Encounter Summary ---
Author Organization [facility] Address [address] [place] [address] [place] [phone] Phone Care Team Providers Care Senior Architectural Designer Name Role Phone Sayda Storey NP Primary Care Provide r Freya Lloyd RN Unavailable Jasvir Siddiqi MD Primary Care Provider [phone] Reason for Referral * Outpatient Procedure - Closed Specialty Diagnoses / Procedures Referred By Rosa t Referred To Contact Radiology Diagnoses Heart failure, unspecified HF chronicity, unspecified heart failure type Procedures Adult Echo TTE Jasvir Siddiqi MD [address] [place] [phone] Phone: tel: fax: mailto:[email or web address] Referral ID Status Reason Start Date Expiration Date Visits Re quested Visits Authorized [id number] Closed 02/15/2024 02/14/2025 1 1 Encounter Details Date Type Department Care Team (Late st Contact Info) Description 02/15/2024 Transcribe Orders Virtual Department [address] [place] [address] Jasvir Siddiqi MD [address] [place] [address] [phone] [email or web address] Heart failure, unspecified HF chronicity, unspecified heart failure type (Primary Dx) Social History Tobacco Use Types Packs/Day Years [...] Description 10/03/2025 1:30 PM EST Office Visit [facility] General Surgical Care [address] [place] [address] Antonietta Griffiths, RIM FIRE PRIMING TOOL SETTER 15 [facility], [address] [place] [address] 10/07/2025 4:00 PM EST Nutrition [facility] [address] [place] [address] Kristine Alba, ALEXEI [address] Enrique. [address] [place] [phone] 10/24/2025 12:45 PM EST Office Visit [facility] 10 [place] [address] Unknown, Unknown, Lora White, RIM FIRE PRIMING TOOL SETTER 10 [place], [place] [phone] documented as of this encounter Results * TTE COMPREHENSIVE W/ LVO CONTRAST (04/18/2024 1:24 PM EDT) Body Surface Area 2.79 m2 Height 188 cm Weight 163 kg Systolic BP 134 mmHg Diastolic BP 72 mmHg Left Ventricular Outflow Tract Diameter 27.0 mm LVOT VTI REST 152.0 mm Left Ventricular Outflow Tract Velocity 0.9 m/s Left Ventricular Outflow Tract Gradient at Rest 3 mmHg Aortic Valve Mean Gradient 3 mmHg Aortic Valve Time Velocity Integral 197.0 mm Aortic Valve Peak Velocity 109.0 cm/s Aortic Valve Peak Gradient 5 mmHg Aortic Sinus Diameter 37 <40 mm Mitral Valve A Wave Speed 66.0 cm/s Mitral Valve E Wave Speed 50.1 cm/s Aortic Valve Prosthetic Peak Gradient 5 mmHg Aortic Valve Prosthetic Mean Gradient 3 mmHg Aortic Valve Sinus Index by BSA 13 mm/m2 Aorta Sinus Index by Height 1.97 cm/m Aorta Sinus CSA index by Height 5.72 cm2/m Aortic Sinus Index 13 mm Aortic Valve Sinus Index 1 13 20 - 32 mm Ejection Fraction 30 50 - 75 % Left Ventricle Ea Lateral Wave Speed 7.0 cm/s Right Ventricle TAPSE 23 >=17 mm MV E/E' Tissue Velocity Lateral 7.14 Right Ventricle Pulse Doppler S Wave 13.0 >=9.5 cm/s Left Ventricle E Wave Speed 50.0 cm/s Left Ventricle A Wave Speed 66.0 cm/s MV E/A ratio 0.8 Left Ventricle Ea Septal Wave Speed 6.0 cm/s MV E/e' septal 8.33 Left Ventricle E/e' Average 7.7 Echo E/Ea 8.33 Anatomical Region Laterality Modality Heart Ultrasound Narrative 04/19/2024 9:23 AM EDT 1. This patient is imaged during sinus rhythm. The estimated ejection fraction is reduced at 30 to 40%. There is diffuse hypokinesis but the apex seems to be akinetic. Endocardial definition is very limited so contrast agent was used. The left ventricular cavity size is dilated left ventricular thickness is normal. 2. Normal RV size and function. 3. Trileaflet aortic valve with no evidence of aortic stenosis, the ascending aortic root is normal in size. 4. Trace mitral and tricuspid insufficiency, the PA pressure was not able to calculated on the study. 5. Normal pericardium and no prior echo available for comparison. Left Ventricle The left ventricle is dilated. There is moderately reduced left ventricular systolic function. The LV ejection fraction is 30-40% (visually estimated). There is diffuse hypokinesis. The E/A ratio is 0.8. The e' septal wave velocity is 6.0 cm/s. The e' lateral wave velocity is 7.0 cm/s. The average E/e' ratio is 7.7. Right Ventricle The right ventricle is normal in size. There is normal right ventricular systolic function. TAPSE is 23 mm. RV S' wave is 13.0 cm/s. Left Atrium The left atrium is mildly dilated. Right Atrium The right atrium is normal in size. The IVC is not assessed. Mitral Valve The mitral valve appears normal. There is no mitral stenosis. There is trace mitral regurgitation. Tricuspid Valve The tricuspid valve appears normal. There is no tricuspid stenosis. There is trace tricuspid regurgitation. RV systolic pressure could not be estimated due to insufficient TR Doppler envelope. Aortic Valve There is no aortic stenosis. There is no aortic regurgitation. Pulmonic Valve The pulmonic valve is not assessed. The pulmonic valve appears normal. Pericardium The pericardium appears normal. General Findings The study was technically difficult (4). Study quality explanation: obesity. Technique(s) used in the evaluation: Color flow Doppler and Spectral Doppler. An echo contrast agent was administered IV, per ASE guidelines. The predominant rhythm during the study was sinus. Comparison Findings There are no prior studies for comparison. IAS/IVS The interatrial septum appears normal. There is no evidence of patent foramen ovale (PFO). Jasvir Siddiqi MD CV ECHO ORDERABLES Final Result documented in this encounter Visit Diagnoses Diagnosis Heart failure, unspecified HF chronicity, unspecified heart failure type- Primary Heart failure, unspecified HF chronicity, unspecified heart failure type documented in this encounter Care Teams Senior Architectural Designer Relationship Specialty Start Date End Date Sayda Storey NP [address] [place] [address] [address] [place] [address] PCP - General Nurse Practitioner 12/04/23 09/09/24 Jasvir Siddiqi MD [address] [place] [phone] [email or web address] PCP - General Internal Medicine 09/10/24 Freya Lloyd RN [address] [place] [phone] (work) [email or web address] PHCM Folding Machine Feeder 08/19/24 09/15/24 documented as of this encounter Additional Source Comments The information contained in this document represents components of the legal health record. It is not the complete legal health record.[facility]
--- OUTSIDE RECORDS SUMMARY | 2025-09-01 15:53 | XMS_ITS | Encounter Summary ---
Author Organization [facility] Address [address] [place] [address] [place] [address] Phone Care Team Providers Care Credit Administrator Name Role Phone Jasvir Siddiqi MD Primary Care Provider [phone] Reason for Referral * Outpatient Procedure - Closed Specialty Diagnoses / Procedures Referred By Contac t Referred To Contact Radiology Diagnoses Cardiomyopathy, unspecified type Procedures Adult Echo TTE Julio Hoffman MD [address] [place] [address] Dr Ricketts [address] [place] [address] Phone: tel: Referral ID Status Reason Start Date Expiration Date Visits Re quested Visits Authorized [id number] Closed 07/31/2025 07/31/2026 1 1 Encounter Details Date Type Department Care Team (Late st Contact Info) Description 07/31/2025 Transcribe Orders Virtual Department [address] [place] [phone] Julio Hoffman MD [address] [place] [address] Dr Ricketts [address] [place] [phone] Cardiomyopathy, unspecified type (Primary Dx) Social History Tobacco Use [...] Description 10/03/2025 1:30 PM EST Office Visit [facility] General Surgical Care [address] [place] [address] Antonietta Griffiths, PSYCHIATRIC NP [address] [place] [address], [address] [place] [address] 10/07/2025 4:00 PM EST Nutrition [facility] General Surgical Care [address] [place] [address] [place] [address] Kristine Alba LDN [address] Enrique[address] [place] [phone] 10/24/2025 12:45 PM EST Office Visit [facility] [address] [place], [place] [phone] Unknown, Unknown, Lora White, PSYCHIATRIC NP [address] [place], [place] [phone] documented as of this encounter Results * TTE COMPREHENSIVE (08/02/2025 10:23 AM EDT) Left Ventricle Internal Diameter End Diastole 57 42 - 58 mm Interventricular Septum Thickness 1 6 - 11 mm Aortic Sinus Diameter 38 <40 mm Left Ventricular Posterior Wall Thickness 1 6 - 11 mm Ascending Aorta Diameter 39 <36 mm Body Surface Area 2.49 m2 Left Atrial Volume Index 16 16 - 34 mL/m2 Right Ventricle Peak Systolic Pressure 12 mmHg Ejection Fraction 36 50 - 75 % Left Ventricle Ea Lateral Wave Speed 9.1 cm/s Right Ventricle TAPSE 25 >=17 mm Aortic Valve Area 5.1 cm2 MV E/E' Tissue Velocity Lateral 6.93 Right Ventricle Pulse Doppler S Wave 11.7 >=9.5 cm/s Aortic Valve Peak Velocity 101.0 m/s Aortic Valve Peak Gradient 4 mmHg Aortic Valve Mean Gradient 2 mmHg Relative Wall Thickness 0.04 0.22 - 0.42 Left Ventricle indexed to BSA 7.0 g/m2 Left Ventricular Outflow Tract Velocity 89.3 m/s Left Ventricle E Wave Speed 63.1 cm/s Left Ventricle A Wave Speed 59.7 cm/s MV E/A ratio 1.1 Left Ventricle Ea Septal Wave Speed 8.2 cm/s MV E/e' septal 7.70 Left Ventricle E/e' Average 7.3 Right Ventricle Basal Diameter 40 25 - 41 mm Left Atrial Volume 40 mL Right Atrium Area 13 cm2 Right Atrium Area index 5 cm2/m2 Inferior Vena Cava Diameter 24 <21 mm Aortic Valve Prosthetic Peak Gradient 4 mmHg Aortic Valve Prosthetic Mean Gradient 2 mmHg Left Ventricular Outflow Tract Diameter 2.7 cm Left Ventricular Outflow Tract Cross Sectional Area 5.7 cm2 MGB CV ECHO AV AORTIC VALVE AREA INDEX BY BSA (PEAK) 2.0 cm2/m2 Aortic Valve Sinus Index by BSA 15 mm/m2 Ascending Aorta Index 16 mm/m2 Aortic Arch Diameter 32 mm Tricuspid Valve Peak Velocity 1.5 m/s Right Atrium Pressure Estimated 3 mmHg Right Ventricle to Right Atrium Pressure Gradient 9 mmHg Right Ventricle Peak Systolic Pressure (Assuming RAP 10) 19 mmHg MGB CV ECHO TV RVSP (ASSUMING RAP OF 5) 14 mmHg RVSP (Exclusive of RAP) 9 mmHg MGB CV AV DIMENSIONLESS INDEX (PEAK) - STRESS ECHO DOBUT - REST 0.88 Ascending Aorta Index 16 mm Aortic Sinus Index 15 mm Ascending Aorta Diameter 16 mm Aortic Valve Sinus Index 1 15 20 - 32 mm AO ASC DIAM BSA INDEX 15.66 Echo E/Ea 7.70 Anatomical Region Laterality Modality Heart Ultrasound Narrative 08/03/2025 8:26 AM EDT Images from the original result were not included. 1. The indication is cardiomyopathy. The estimated ejection fraction is mild to moderately reduced at 35 to 40%. Endocardial definition is very limited this study should have probably been done with contrast agent. Diastolic function was normal there were no obvious regional wall motion abnormalities and left ventricular thickness was normal. Again endocardial definition was limited. 2. Normal RV size and function. 3. Trileaflet aortic valve there is no evidence of aortic stenosis, the ascending aortic root is 39 mm. 4. Trace mitral and trace tricuspid insufficiency, the PA pressure is normal. 5. Normal pericardium and when compared to the prior study done in March 2024, no significant change. Left Ventricle The left ventricle is normal in size. There is borderline concentric hypertrophy. The interventricular septal thickness is 1 mm. The LV posterior wall thickness is 1 mm. There is mildly reduced left ventricular systolic function. The LV ejection fraction is 36% (calculated via biplane measurement). There are no wall motion abnormalities. LV diastolic function appears within normal limits for age. The E/A ratio is 1.1. The e' septal wave velocity is 8.2 cm/s. The e' lateral wave velocity is 9.1 cm/s. The average E/e' ratio is 7.3. Right Ventricle The right ventricle is normal in size. The RV basal dimension is 40 mm. There is normal right ventricular systolic function. TAPSE is 25 mm. RV S' wave is 11.7 cm/s. Left Atrium The left atrium is normal in size. The left atrial volume is 40 mL. There are normal flow patterns in the pulmonary vein. Right Atrium The right atrium is normal in size. The right atrial area is 13 cm2. The IVC is dilated with normal inspiratory collapse. This is consistent with normal RA pressure. The IVC diameter is 24 mm (normal: <= 21 mm). Hepatic veins are normal in size. Mitral Valve The mitral valve appears normal. There is no mitral stenosis. There is trace mitral regurgitation. Tricuspid Valve The tricuspid valve appears normal. There is no tricuspid stenosis. There is trace tricuspid regurgitation. The RV systolic pressure was calculated at 12 mmHg (using TR peak velocity of 1.5 m/s and assuming an RA pressure of 3 mmHg). Aortic Valve The aortic valve is tricuspid. There is no aortic stenosis. The aortic valve peak velocity is 101.0 m/s. The peak and mean aortic valve gradients are 4 mmHg and 2 mmHg respectively. There is trace aortic regurgitation. The aortic sinus diameter is 38 mm. The ascending aortic diameter is 39 mm. The aortic arch diameter is 32 mm. Pulmonic Valve The pulmonic valve appears normal. Pericardium There is no pericardial effusion. There are no pleural effusions. General Findings The image quality was good (2). Technique(s) used in the evaluation: Color flow Doppler and Spectral Doppler. The predominant rhythm during the study was sinus. Patient tolerated the procedure well. Comparison Findings Compared to prior study on 04/18/2024, IAS/IVS The interatrial septum appears normal. The interatrial septum appears thickened consistent with lipomatous hypertrophy (normal variant). There is no evidence of patent foramen ovale (PFO). The interventricular septum appears normal. There is no evidence of a ventricular septal defect. Procedure Note Nicola Frances, - 08/03/2025 Images from the original note were not included. 1. The indication is cardiomyopathy. The estimated ejection fraction ismild to moderately reduced at 35 to 40%. Endocardial definition is verylimited this study should have probably been done with contrast agent.Diastolic function was normal there were no obvious regional wall motionabnormalities and left ventricular thickness was normal. Againendocardial definition was limited. 2. Normal RV size and function. 3. Trileaflet aortic valve there is no evidence of aortic stenosis, theascending aortic root is 39 mm. 4. Trace mitral and trace tricuspid insufficiency, the PA pressure isnormal. 5. Normal pericardium and when compared to the prior study done in March2024, no significant change. Julio Hoffman MD CV ECHO ORDERABLES Final Resul t documented in this encounter Visit Diagnoses Diagnosis Cardiomyopathy, unspecified type- Primary Cardiomyopathy, unspecified type documented in this encounter Care Teams Credit Administrator Relationship Specialty Start Date End Date Jasvir Siddiqi MD [address] [place] [phone] [email or web address] PCP - General Internal Medicine 09/10/24 documented as of this encounter Additional Source Comments The information contained in this document represents components of the legal health record. It is not the complete legal health record.[facility]
--- OUTSIDE RECORDS SUMMARY | 2025-09-01 15:53 | XMS_ITS | Clinical Summary ---
Author Organization [facility] Address [address] [place] [address] Phone Care Team Providers Care Ship Unloader Name Role Phone Jasvir Siddiqi MD Primary Care Provider [phone] Allergies No known active allergies Medications carvedilol (COREG) 6.25 MG tablet Take 1 tablet by mouth 2 (two) times a day. Active furosemide (LASIX) 40 MG tablet Take 40 mg by mouth 2 (two) times a day. Active losartan (COZAAR) 100 MG tablet Take 1 tablet by mouth every morning. Active spironolactone (ALDACTONE) 25 MG tablet Active aspirin 81 MG EC tablet Take 81 mg by mouth daily. Active FARXIGA 5 mg tabletIndicatio ns:Chronic congestive heart failure, unspecified heart failure type Take 1 tablet by mouth every morning. Active fluticasone propionate (FLONASE) 50 mcg/actuation nasal spray 50 mcg by Nasal route. Active atorvastatin (LIPITOR) 20 MG tablet Take 20 mg by mouth daily. Active ketoconazole 2 % creamIndication s:Intertrigo Apply topically daily. Apply nightly to affected rash until 1 week after the rash resolves 15 g Active tirzepatide, weight loss, (ZEPBOUND) 12.5 mg/0.5 mL subcutaneous pen Inject 0.5 mL (12.5 mg total) under the skin every 7 days. 2 mL Active ZEPBOUND 10 mg/0.5 mL subcutaneous penIndications: Class 2 severe obesity with serious comorbidity and body mass index (BMI) of 39.0 to 39.9 in adult, unspecified obesity type INJECT 10 MG SUBCUTANEOUSLY EVERY 7 DAYS 2 mL 025 2024 Discontinued tirzepatide, weight loss, (ZEPBOUND) 12.5 mg/0.5 mL subcutaneous pen Inject 0.5 mL (12.5 mg total) under the skin every 7 days. 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 Decrease carbohydrates in diet. Increase exercise. FU 3 months Assessment & Plan (03/04/2025 10:39 AM EDT): I asked him to restart resistance bands. Of course I would like him to see RD again. He is getting plenty of protein but I think you could be making more heart healthy choices dietarily. We will increase Zepbound to 10 mg at his next refill. He will follow-up in 3 months. Assessment & Plan (12/03/2024 5:24 PM EST): Doing very well on Zepbound. Losing at a good rate still on 7.5 mg. He will update me with his weight next month. He's doing a good job w dietary changes & has added resistance training. Assessment & Plan (09/10/2024 1:25 PM EST): I am changing him to Zepbound as this is now the preferred medication by his insurance. Wegovy will no longer be covered. When he finishes his current stock of Wegovy he will start Zepbound 2.5 mg. He will continue working on lifestyle changes. He will follow-up with me in 8 weeks Assessment & Plan (07/23/2024 12:00 PM EDT): Pt was educated on the pathophysiology of obesity, which is a chronic, relapsing, often progressive neuroendocrine disease with behavioral components. We discussed treatment approaches including lifestyle changes, pharmacotherapy & bariatric surgery. We discussed their personal treatment goals. We discussed targeting a weight loss goal of 5-10% over the next 6 months as this modest amount of weight loss has been shown to decrease blood pressure, insulin resistance, sleep apnea, liver inflammation, arthritic pain and improve dyslipidemia. I recommend the following labs as part of their initial evaluation, the results of which will direct further treatment recommendations: Fasting lipid, CMP, A1c, TSH w reflex, Vit D, CBC, fasting insulin Patient was given the initial meal plan and exercise recommendations. I recommend patient work with our dietitian, Pushpa Alba RD and have asked them to schedule an appt. I have recommended the following Anti-Obesity Medication: Semaglutide The patient has completed > 6 months of efforts focused on dietary and lifestyle changes and has been unsuccessful in reaching their weight loss goals. They will start at start 0.25 mg subq weekly, then if tolerated we can titrate dose q 4 weeks. I have explained that this medication decreases appetite & food cravings and increases feeling of fullness. I have have reviewed the following possible side effects: Nausea, vomiting, constipation, gastroparesis, SBO, pancreatitis, gallstones, suicidal thoughts, diabetic retinopathy, optic neuropathy, low blood sugar and in rat studies an increased risk of medullary thyroid cancer and MEN2. This medication is not recommended in and in patients with a personal or family history of medullary thyroid cancer or multiple endocrine neoplasia 2A or 2B. We also discussed health insurance inflicted barriers to obtaining GLP1RA and possible need for prior authorization & appeal. If insurance doesn't cover from obesity we may be able to request coverage for cardiovascular disease. I will need to get records from his research computing specialist. If no GLP1 RA coverage regardless I encouraged him to consider bariatric surgery, however he would need clearance by research computing specialist before going down that road. Snoring 07/23/2024 Encounters Date Type Department Care Team Description 08/20/2025 Refill [facility] General Surgical [address] [place] [address] Rochelle Valdez RN Medication Refill 08/13/2025 Refill [facility] Surgical [facility] [address] [place] [address] Antonietta Griffiths, IZABELLA Medication Refill 08/02/2025 9:47 AM EDT - 08/02/2025 11:59 PM EDT Hospital Encounter [facility] Echo Lab [address] [place] [address] Julio Hoffman MD Discharge Disposition: Home or Self Care 07/31/2025 Procedure Pass [facility] Echo Lab [address] [place] [address] 07/31/2025 Transcribe Orders Virtual Department [address] [place] [address] Julio Hoffman MD Cardiomyopathy, unspecified type (Primary Dx) 07/29/2025 4:00 PM EDT Nutrition [facility] [address] [place] [address] Kristine Alba LDN Obesity (BMI 30-39.9) (Primary Dx) 07/21/2025 [facility] RISK SCORES SYSTEM GENERATED External System Generated Encounter [address] [place] [address] Unknown, Unknown, 06/25/2025 2:00 PM EDT Office Visit [facility] [address] [place] [address] Antonietta Griffiths CNP Class 2 severe obesity with serious comorbidity and body mass index (BMI) of 37.0 to 37.9 in adult, unspecified obesity type (Primary Dx) 06/05/2025 Refill [facility] General Surgical Care [address] [place], [place] [address] Antonietta Griffiths CNP Medication Refill from Last 3 Months Social History Tobacco Use Types Packs/Day Years Used Date Smoking Tobacco: Former Cigarettes Q uit: 09/2023 Smokeless Tobacco: Never Tobacco Cessation:Counseling Given: Not Answered Alcohol Use Standard Drinks/Week Comments Not Currently [...] on file Sexual Orientation Not on file Last Filed Vital Signs Vital Sign Reading Time Taken Comments Blood Pressure 102/76 06/25/2025 1:00 PM EDT Pulse 80 06/25/2025 1:00 PM EDT Temperature 36.4 C (97.5 F) 06/25/2025 1:00 PM EDT Respiratory Rate - - Oxygen Saturation 97% 06/25/2025 1:00 PM EDT Inhaled Oxygen Concentration - - Weight 128.4 kg (283 lb) 07/30/2025 8:24 AM EDT Height 185.4 cm (6' 0.99 ) 06/25/2025 1:00 PM ED T Body Mass Index 37.35 06/25/2025 1:00 PM EDT Plan of Treatment Upcoming Encounters Date Type Department Care Team (Late st Contact Info) Description 10/03/2025 1:30 PM EST Office Visit [facility] Surgical Care [address] [place] [address] Antonietta Griffiths, CLINICAL STAFF ANESTHESIOLOGIST [address] [facility], 2nd [place] [address] 10/07/2025 4:00 PM EST Nutrition [facility] Surgical Care [address] [place] [address] Kristine Alba LDN [address] Enrique[address] [place] [address] 10/24/2025 12:45 PM EST Office Visit [facility] [address] [place], [place] [id number] Unknown, Unknown, Lora White, CLINICAL STAFF ANESTHESIOLOGIST [address] [place], [place] [id number] Health Maintenance Due Date Last Done Comments DEPRESSION SCREENING 1981 SMOKING Hx and SMOKELESS TOBACCO SCREENING 1982 HEPATITIS C SCREENING 1987 HIV ONE-TIME SCREENING (18-6 5 YEARS) 1987 PNEUMOCOCCAL VACCINES (50+ years) (1 of 2 - PCV) 1988 COLOGUARD 2014 COLONOSCOPY 2014 COLORECTAL CANCER SCREENING 2014 FIT TEST 2014 FOBT 2014 SIGMOIDOSCOPY 2014 VIRTUAL COLONOSCOPY 2014 RSV VACCINE (1 - Risk 50-74 years 1-dose series) 2019 ZOSTER VACCINES (1 of 2) 2019 INFLUENZA VACCINE (#1) 2025 COVID-19 VACCINE (1 - 2024-2 6 season) 2025 CREATININE LEVEL 09/30/2025 09/30/2024 POTASSIUM LEVEL 09/30/2025 09/30/2024 BLOOD PRESSURE 12/23/2025 06/25/2025 SCREENING FOR DIABETES 09/30/2027 , 09/30/2024 LIPID PANEL 09/30/2029 09/30/2024, 06/14/2024, 06/14/2024 Adult Td,Tdap Booster 02/14/2034 02/15/2024 HEPATITIS A VACCINES Aged Out No long er eligible based on patient's age to complete this topic HIB VACCINES Aged Out No longer eligi ble based on patient's age to complete this topic IPV VACCINES Aged Out No longer eligi ble based on patient's age to complete this topic MENINGOCOCCAL VACCINES (ACWY) Aged Out No longer eligible based on patient's age to complete this topic MENINGOCOCCAL VACCINES (B) Aged Out N o longer eligible based on patient's age to complete this topic Medical Devices Not on file Procedures Procedure Name Priority Date/Time Associated Diagnosis Comments TTE COMPREHENSIVE Routine 08/02/2025 10: 23 AM EDT Cardiomyopathy, unspecified type LIPID PANEL Routine 09/30/2024 9:19 AM EST Class 3 severe obesity with serious comorbidity and body mass index (BMI) of 45.0 to 49.9 in adult, unspecified obesity type COMPREHENSIVE METABOLIC PANEL (CMP) Routine 09/30/2024 9:19 AM EST Class 3 severe obesity with serious comorbidity and body mass index (BMI) of 45.0 to 49.9 in adult, unspecified obesity type from Last 3 Months or Most Recently Relevant to Health Maintenance Results * TTE COMPREHENSIVE (08/02/2025 10:23 AM [...] MD CV ECHO ORDERABLES Final Resul t * Comprehensive metabolic panel (09/30/2024 9:19 AM EST) SODIUM 138 133 - 146 mmol/L [facility] POTASSIUM 4.1 3.3 - 5.1 mmol/L [facility] CHLORIDE 101 96 - 108 mmol/L [facility] CO2 28 21 - 35 mmol/L [facility] BUN 12 6 - 19 mg/dL [facility] CREATININE 0.80 0.5 - 1.5 mg/dL [facility] GLUCOSE 95 70 - 99 mg/dL [facility] ALBUMIN 4.2 3.9 - 4.8 g/dL [facility] TOTAL PROTEIN 7.9 6.5 - 8.0 g/dL [facility] CALCIUM 9.3 8.4 - 10.3 mg/dL [facility] ALKALINE PHOSPHATASE 69 39 - 117 U/L [facility] TOTAL BILIRUBIN 0.3 0.0 - 1.2 mg/dL [facility] AST 24 0 - 37 U/L [facility] ALT 23 0 - 40 U/L [facility] GLOBULIN 3.7 1 - 4.8 g/dL [facility] EGFR 105 >59 mL/min/1.7 3m2 [facility] Comment:Estimated glomerular filtration rate calculated using the CKD-EPI refit equation. ANION GAP 13 10 - 20 mmol/L [facility] Blood 09/30/2024 9:19 AM EST 09/30/2024 9:30 AM EST us Antonietta Griffiths CLINICAL STAFF ANESTHESIOLOGIST LAB BLOOD BKR ORDERABLES F inal Result Performing Organization Address City/State/[facility] Co de Phone Number [address] [phone] * (ABNORMAL) Lipid panel (09/30/2024 9:19 AM EST) HDL 36 mg/dL [facility] Comment: Interpretation <40 mg/dL: Low HDL cholesterol (major risk factor for CHD) Greater than or equal to 60 mg/dL: High HDL cholesterol ( negative risk factor for CHD) HDL - cholesterol is affected by a number of factors, e.g. smoking, excerise, hormones, sex and age. CHOLESTEROL 198 0 - 240 mg/dL [facility] TRIGLYCERIDES 72 30 - 160 mg/dL [facility] LDL 148(H) 50 - 129 mg/dL [facility] Comment: LDL levels in terms of risk for coronary heart disease: <100 mg/dL: Optimal 100-129 mg/dL: Near or above optimal 130-159 mg/dL: Borderline high 160-189 mg/dL: High >190 mg/dL: Very High CARDIAC RISK RATIO 5.5(H) 3.4 - 5.0 C [facility] Blood 09/30/2024 9:19 AM EST 09/30/2024 9:30 AM EST Antonietta Griffiths CLINICAL STAFF ANESTHESIOLOGIST LAB BLOOD BKR ORDERABLES F inal Result [address] [address] from Last 3 Months or Most Recently Relevant to Health Maintenance Insurance ACO ACO ACO ACO ACO [facility] ACO Care Teams Ship Unloader Relationship Specialty Start Date End Date Jasvir Siddiqi MD [address] [place] [id number] PCP - General Internal Medicine 09/10/24 Additional Source Comments The information contained in this document represents components of the legal health record. It is not the complete legal health record.[facility]
--- OUTSIDE RECORDS SUMMARY | 2025-09-01 15:53 | XMS_ITS | Encounter Summary ---
Author Organization [facility] Address [address] [place] [address] [place] [phone] Phone Care Team Providers Care Manufacturing Engineering Technician Name Role Phone Sayda Storey PUBLIC TRANSIT BUS DRIVER Primary Care Provide r Freya Lloyd RN Unavailable Jasvir Siddiqi MD Primary Care Provider [phone] Encounter Details Date Type Department Care Team (Late st Contact Info) Description 06/19/2024 Procedure Pass [facility] Endoscopy Admitting Dept Virtual Department [address] [place] [address] Social History Tobacco Use Types Packs/Day Years [...] Description 10/03/2025 1:30 PM EST Office Visit [facility] General Surgical Care [address] [place] [address] Antonietta Griffiths, COSMETICS COUNTER MANAGER [facility], [address] [place] [address] 10/07/2025 4:00 PM EST Nutrition [facility] Surgical Care [address] [place] [address] Kristine Alba, ALEXEI [address] Enrique[address] [place] [address] 10/24/2025 12:45 PM EST Office Visit [facility]ology [facility] [address] [place] [address] Unknown, Unknown, Lora White, COSMETICS COUNTER MANAGER [address] [place] [address] documented as of this encounter Visit Diagnoses Not on filedocumented in this encounter Care Teams Manufacturing Engineering Technician Relationship Specialty Start Date End Date Sayda Storey NP [address] [place] [address] [address] [place] [address] PCP - General Nurse Practitioner 12/04/23 09/09/24 Jasvir Siddiqi MD [address] [place] [id number] PCP - General Internal Medicine 09/10/24 Freya Lloyd, RN [address] [place] [address] [email or web address] PHCM Finance Lead 08/19/24 09/15/24 documented as of this encounter Additional Source Comments The information contained in this document represents components of the legal health record. It is not the complete legal health record.[facility]
== END 2025-09-01 14:04 | disposition home or self-care (01) ==
LOC: HO.HCS 13:42
PROVIDERS: PCP Internal Medicine; Visit Provider Internal Medicine Cardiovascular Disease
DX: I42.9 Cardiomyopathy, unspecified (principal); I10 Essential (primary) hypertension
CPT/HCPCS: 99214

== ENCOUNTER → 2025-09-01 13:42 | Outpatient (BNVA) | payer MEDICAID, SELFPAY | PROVIDERS: PCP Internal Medicine; Visit Provider Internal Medicine Cardiovascular Disease | DX: I10 Essential (primary) hypertension (principal); I42.9 Cardiomyopathy, unspecified | CPT/HCPCS: 99212 ==